=== PATIENT | male | born 1980 | race Caucasian/White ===

== ENCOUNTER → 2016-07-24 | Outpatient (CLI) | payer OTHER ==
[~2016-07-24] MED LIST: APIX1TAB3 PO; FAMO20TA9 PO; FEXO1TAB49 PO; FLUO10CA48 PO; IBUP-1450 PO; ONDA4TAB10 SL; PROM25TA9 PO
--- NOTE | 2016-07-26 07:50 | PAP/PSG TECHNICIAN REPORT ---
[facility] Slip Filler Polysomnogram Report Study name: None Report date: 07/25/2016 Study date: 07/24/2016 Referring Physician: DR. VAZQUEZ Name: CLARE PEACE Interpreting Physician: Cornell Vu M.D. Date of : 1980 Slip Filler: Moni Nogueira, PSGT. Sex: Male Age: 35 StudyType: PSG Weight: 120 lbs Height: 35 years, Height 5' 2" Neck Circum: BMI: 21.95 Medications: Josee,Fluoxetine, and IBP. Patient History 35 yr. old male in room 5, here for a split night study with ETCO2. pt. 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 Parameters Monitored NPSG: E1-M2, E2-M1, Fp1-M2, Fp2-M1, F3-M2, F4-M2, F4-M1, C3-M2, C4-M2, C4-M1, O1-M2, O2-M2, O2-M1, T3-M2, T4-M1, P3-M2, P4-M1, CHIN1, CHIN2, HR, EKG, Legs, PFLOW, SNOR, FLOW, CFLOW, Tidal Volume, THOR, ABDO, SpO2, PLTH, CPRESS, ETCO2 Wave, ETCO2, pH Sleep Architecture Sleep Stages Time at Lights Off 8:37:48 PM STAGES Time (min.) TST (%) Time at Lights On 5:30:18 AM Wake 164.5 -- Total Recording Time (TRT) 534.00 min. N1 18.5 5 Total Sleep Period (TSP) 479.5 min. N2 267.5 73 Total Sleep Time (TST) 368.0min. N3 0.0 0 Awake Time 166.0 min. REM 82.0 22 Wake after Sleep Onset 111.5 min. Sleep Efficiency (SE) 69 % Sleep Onset Latency (CHAYO) 53.0 min. Number of Stage 1 Shifts None Awakenings 10 Stage Changes 39 Number of REM periods 1 REM 82.0 22 REM Latency 303.0 min. NREM 286.0 78 Body Position Analysis Supine Right Left Side Prone Vertical Total Sleep Time (min.) 203.0 0.0 274.5 274.50 0.0 0.2 Total Sleep Time (%) 25% 0% 75% 75 0% N/A% Total Sleep Time REM (min.) 0.0 0.0 82.0 None 0.0 0.0 Total Sleep Time NREM (min.) 93.5 0.0 192.5 None 0.0 0.0 Intermittent Wake (min.) 109.5 0.0 54.9 None 0.0 0.2 Total Sleep Period (%) 34% None None None None None Arousals Myoclonus (PLM) * Events Count Index Events Count Index Spontaneous 38 6 Events Awake (PLMW) 6 2.2 Respiratory 0 0.0 Events Asleep w/ Arousal (PLMA) 0 0.0 PLM 0 0 Events Asleep w/o Arousal (PLMS) 49 8.0 Snoring 1 0 Total Asleep 49 8.0 Total 39 6 Total 55 6 Respiratory Analysis * CA OA MA CH H RERA Total Count 0 0 0 0 5 5 5 Index 0.0 0.0 0.0 0 0.8 1 1.6 Mean Duration 0.0 0.0 0.0 0.00 19.0 20.0 19.5 Longest Duration 0.0 0.0 0.0 0.00 0.0 23.7 35.0 Respiratory Event Summary Total Supine ~Supine Right Left Prone REM NREM Apneas Count 0 0 0 N/A 0 N/A 0 0 Index 0.0 0 0 N/A 0.0 N/A 0 0 Hypopneas (4% Desat) Count 5 0 5 N/A 5 N/A 2 3 Index 0.8 0.0 1 N/A 1.1 N/A 1.5 0.6 Apneas & All Hypopneas Count 5 0 5 N/A 5 N/A 2 3 Index 0.8 0 1 N/A 1 N/A 1.5 0.6 Respiratory Events (Family Lawyer+All Hyp+RERA) Count 5 0 10 N/A 10 N/A 2 3 Index 1.6 0 2 N/A 2.2 N/A 3.7 1.0 Respiratory Related Arousal Count 0 0 0 N/A 0 N/A 0 0 Index 0.0 0 0 N/A 0 N/A 0 0 Snoring Analysis Supine Right Left Prone REM NREM Total Snore duration 2.2 min Snores count 19 N/A 22 N/A 5 36 41 Snore mean duration 3.2 Sec Snores index 12 N/A 5 N/A 3.7 7.6 6.7 TST with snoring (%) 0.6% SpO2 Analysis Total REM NREM Awake <50% 0.0 min. 0.0 min. 0.0 min. 0.0 min. 51 - 60% 0.0 min. 0.0 min. 0.0 min. 0.0 min. 61 - 70% 0.0 min. 0.0 min. 0.0 min. 0.0 min. 71 - 80% 0.0 min. 0.0 min. 0.0 min. 0.0 min. 81 - 90% 438.6 min. 67.2 min. 259.3 min. 112.2 min. 91 - 100% 85.7 min. 14.8 min. 25.6 min. 45.2 min. Average 89 90 89 90 Minimum SpO2 75 86 84 75 Desaturation Event Index 1.8 5.9 1.7 0.0 # Desat. Events below 89% 13 6 7 N/A Time(%) with Saturation below 89% 33.2 2.1 21.1 10.1 Time(min.) with Saturation below 89% 174.3 11.0 110.6 52.7 Heart Rate Analysis End Tidal CO2 Analysis Min (bpm) Max (bpm) Average (bpm) TSP (mins) % of TSP Awake 59 127 80 Above 55 mmHg 292.2 79.4 NREM 39 100 71 50-55 mmHg 13.7 3.7 REM 55 94 70 45-50 mmHg 8.9 2.4 Overall 39 100 71 40-45 mmHg 15.5 4.2 35-40 mmHg 22.1 6.0 30-35 mmHg 11.4 3.1 Average ETCO2 0.1 Supplemental O2 Values Minimum O2 level: None Value Start Time End Time Slip Filler Comments PSG Study slept in the left, and supine positions. Cardiac arrhythmia displayed see print outs. No PLM's noted. No bruxism noted. Snoring was noted and scored as a 1on a scale of 1 through 5. (0=no snoring, 5=snoring loud enough to be heard through a closed door or down the [address]) Mr. Peace awoke to use the restroom one time during the night. Mr. Peace stated, I did sleep as well as I do when I am in my own bed, I sleep longer at home. The final report will be interpreted and signed by a sleep physician. The completed physician report will then be placed in the patient medical record. Mr. Peace did not qualify for a split night study; however, he did display high ETCO2 pressures, and low oxygen saturations throughout the night. He was adamant that he wasn't going to wear a mask if needed when I was explaining the process of a split night study. Therapy (cm H2O) 0 TIB (min.) 532.5 TST (min.) 368.0 Sleep Onset (min.) 53.0 REM Onset From Sleep (min.) 303.0 Sleep Efficiency % 69 Wakefulness (%) 31 Wakefulness (min.) 166.0 NREM 1 (%) 5 NREM 1 (min.) 18.5 NREM 2 (%) 73 NREM 2 (min.) 267.5 NREM 3 (%) 0 NREM 3 (min.) 0.0 REM (%) 22 REM (min.) 82.0 # Arousals 39 Arousal Index 6 # Snore 41 Snore Index 6.7 AHI 0.8 AHI Supine 0 AHI Non-Supine 1 NREM AHI 0.6 REM AHI 1.5 RDI 1.6 # Obstructive Apnea 0 # Central Apnea 0 # Mixed Apnea 0 # Hypopneas 5 RERAs 5 Total Respiratory Events 10 Time Below SpO2 89% (min.) 121.6 Mean NREM SpO2 (%) 89 Mean REM SpO2 (%) 90 Mean Sleep SpO2 (%) 89 Min NREM SpO2 (%) 84 Min REM SpO2 (%) 86 Position Supine (min.) 203.0 Position Non-supine (min.) 274.5 LM Index Sleep 8.0 LM Index NREM 5.2 LM Index REM 17.6 Mean Heart Rate (bpm) 71 Min Heart Rate (bpm) 39
--- NOTE | 2016-07-28 02:05 | POLYSOMNOGRAPH REPORT ---
CLINICAL DATA: A 35-year-old male with a BMI of 22 with myotonic dystrophy type 1, referred by Dr. Ervin for evaluation of possible respiratory insufficiency and nocturnal hypoxemia. SLEEP ARCHITECTURE: Total sleep period was 479.5 minutes. Total sleep time was 368 minutes divided between 286 minutes of non-REM sleep and 82 minutes of REM sleep. Sleep onset latency was delayed at 53 minutes. REM latency was delayed at 303 minutes. Sleep efficiency was reduced at 69%. Wake after sleep onset was elevated at 111.5 minutes. Sleep consisted of stage N1 5%, N2 73%, and REM 22%. AROUSAL DATA: 39 arousals were recorded for an index of 6 per hour. PLM DATA: 49 limb movements during sleep were noted for an index of 8 per hour with arousal index of 0. RESPIRATORY DATA: There was no evidence of sleep apnea noted. The AHI was 0.8. The RDI was 1.6. There were 5 hypopneic episodes, the mean duration of which was 19 seconds. There were 5 RERAs. The longest RERA was 23.7 seconds. OXIMETRY DATA: Nocturnal hypoxemia was seen. Oxygen sayra was 84% during non-REM sleep. Mean saturation was 89%. Time with O2 saturation below 89% was 147.3 minutes. HEART RATE DATA: Heart rates ranged from 39-100 beats per minute. Occasional short episodes of what appeared to be atrial flutter were seen. END-TIDAL CO2 ANALYSIS: End-tidal CO2 was above 55 mmHg for 79.4% of the study. The patient slept in the left and supine positions. No bruxism was noted. Snoring was mild, rated 1 on a scale of 1 through 5. The patient was seen to have intermittent mild nocturnal hypoxemia and significantly elevated end-tidal CO2 consistent with hypoventilation related to myotonic dystrophy. He also had several short runs of what appeared to be atrial flutter. When the explosive ordnance technician explained the possibility of using BiPAP and a mask, the patient was adamant that he was not going to wear the mask and would not try it. Therefore, a standard sleep study was performed. IMPRESSION: 1. No evidence of sleep apnea/hypopnea. 2. Mild nocturnal hypoxemia with evidence of elevated end-tidal CO2 throughout most of the study consistent with hypoventilation. 3. Short bursts of probable atrial flutter. RECOMMENDATIONS: The patient will return to see his neurologist for reevaluation. If the patient will reconsider BiPAP for hypoventilation at night, a repeat full-night study with BiPAP could be considered. Clinical correlation is needed. MTDD
== END | disposition home or self-care (01) ==
LOC: C.NEUR 20:00
PROVIDERS: ATTEND Psychiatry & Neurology Neurology
DX: G71.11 Myotonic muscular dystrophy (principal); G47.19 Other hypersomnia; R06.89 Other abnormalities of breathing

== ENCOUNTER → 2016-12-08 | Day surgery (SDC) | payer OTHER ==
[~2016-12-08] VITALS: Ht 167.6 cm; Wt 59.0 kg
[~2016-12-08] MED LIST changes: +LIDOCAINE HCL 2% 2 ML VIAL (20MG/ML) ONE; -PROM25TA9 PO; +PROPOFOL IV EMULSION 10 MG/ML 20 ML VIAL IV ONE
[2016-12-08 07:15] VITALS: BP 100/76; PULSE 74; TEMP 36.8; O2SAT 98; Ht 167.6 cm; Wt 59.0 kg
[2016-12-08 07:49] VITALS: BP 100/76; PULSE 72; O2SAT 98
[2016-12-08 07:50] VITALS: BP 90/62; PULSE 72; O2SAT 98
[2016-12-08 07:52] VITALS: PULSE 72; O2SAT 98
[2016-12-08 07:55] VITALS: BP 95/60; PULSE 65; O2SAT 98
--- NOTE | 2016-12-08 08:02 | History & Physical Bridge Note ---
H&P Re-Evaluation Bridge Note: I have examined the patient, reviewed the History & Physical and in the interval since the performance of the History & Physical I have noted the following changes of clinical significance: No changes noted
--- NOTE | 2016-12-08 08:09 | [facility] Post Operative Brief Note ---
Immediate Operative Summary Operative Date December 08, 2016. Pre-Operative Diagnosis atrial flutter controlled rate Post-Operative Diagnosis paroxysmal atrial flutter successful cardioverted Procedure(s) Performed DC cardioversion Surgeon Cirilo Head Strength And Conditioning Coach Surgeon(s) Meka RN's Estimated Blood Loss none Findings successful cardioversion to sinus rhythm Specimens none Anesthesia as per anesthesia Complication(s) Pt with brief (approx 20 sec) episode of pulseless electrical activity. Respiratory support provided immediately with ambu bag by anesthesia. Chest compressions started, only 2 delivered. Pt then aroused. Pulse returned. Patient spontaneously breathing. Arousable and responding appropriately. No further arrhythmias. Recovered in laborer carpentry dock per protocol.
--- NOTE | 2016-12-08 08:13 | Procedure Note ---
Procedure Note Date of Service December 08, 2016. Procedure Note Informed consent obtained. Pt prepped. Sedation provided per anesthesia. Once adequately sedated, 200J of DC energy delivered with successful conversion to sinus on monitor However, no pulse present Pt ventilated by anesthesia Chest compressions started, only 2 delivered pt became responsive pulse returned recovered in bundle tier and labeler without further incident Plan: DC to home cont Álvaro my office will call to arrange follow up with Timur Curtis PA-C in 4 weeks
--- NOTE | 2016-12-08 08:20 | Discharge Instructions ---
Discharge Instructions Date of Service December 08, 2016. Admission Reason for Admission: A-Flutter, W/Anesthesia * Discharge Discharge Diagnosis / Problem: atrial flutter, successfully cardioverted to sinus rhythm Discharge Goals Goal(s): Improve function Activity Recommendations Activity Limitations: as noted below Lifting Limitations: none Exercise/Sports Limitations: none May Resume Sexual Activity: when tolerated Shower/Bathe: no limitations Driving or Machine Use: resume 1 day after discharge . Instructions / Follow-Up Instructions / Follow-Up Cardiology office to call and arrange follow up appointment in 4 weeks. Current Hospital Diet Patient's current hospital diet: Discharge Diet Recommended Diet: Regular Diet Procedures Procedures Performed: DC cardioversion Pending Studies Studies pending at discharge: no Medical Emergencies . Who to Call and When: Medical Emergencies: If at any time you feel your situation is an emergency, please call 911 immediately. . Non-Emergent Contact Non-Emergency issues call your: Primary Care Provider, Bit Tapper . . "Provider Documentation" section prepared by Hung Kerr. . VTE Core Measure Inpt VTE Proph given/why not?: Other Anticoagulation
--- NOTE | 2016-12-08 08:47 | Anesthesiology Progress Note ---
Anesthesia Post Op Note Date & Time December 08, 2016 at 08:47 Vital Signs Pain Intensity: 0 Vital Signs Past 12 Hours Date Time Temp Pulse Resp B/P Pulse Ox O2 Delivery O2 Flow Rate FiO2 12/08/16 08:10 53 16 93/60 96 Room Air 12/08/16 08:00 65 16 91/61 96 Room Air 12/08/16 07:55 65 16 95/60 98 Nasal Cannula 4 12/08/16 07:52 72 16 98 Nasal Cannula 4 12/08/16 07:50 72 16 90/62 98 Nasal Cannula 4 12/08/16 07:49 72 16 100/76 98 Nasal Cannula 4 12/08/16 07:15 36.8 74 16 100/76 98 Room Air Notes Mental Status: alert / awake / arousable, participated in evaluation Pt Amnestic to Procedure: Yes Nausea / Vomiting: adequately controlled Pain: adequately controlled Airway Patency, RR, SpO2: stable & adequate BP & HR: stable & adequate Hydration State: stable & adequate Anesthetic Complications: no major complications apparent
[2016-12-08 09:00] VITALS: BP 101/57; PULSE 57; O2SAT 96
== END | disposition home or self-care (01) ==
LOC: C.CATH 06:47
PROVIDERS: ATTEND Internal Medicine Cardiovascular Disease
DX: I48.3 Typical atrial flutter (principal); F41.1 Generalized anxiety disorder; G71.11 Myotonic muscular dystrophy; E78.5 Hyperlipidemia, unspecified; R00.1 Bradycardia, unspecified; I51.9 Heart disease, unspecified; D68.51 Activated protein C resistance

== ENCOUNTER 2017-04-13 14:21 | Emergency (ER) | payer OTHER ==
[~2017-04-13] VITALS: Ht 167.6 cm; Wt 60.5 kg
[~2017-04-13 14:21] MED LIST changes: -FAMO20TA9 PO; -FEXO1TAB49 PO; -IBUP-1450 PO; -LIDOCAINE HCL 2% 2 ML VIAL (20MG/ML) ONE; -ONDA4TAB10 SL; -PROPOFOL IV EMULSION 10 MG/ML 20 ML VIAL IV ONE
[2017-04-13 14:24] VITALS: TEMP 36.5; Ht 167.6 cm; Wt 60.5 kg
[2017-04-13] MEDS ORDERED: FEXO1TAB49 PO (14:50)
[2017-04-13] MEDS ORDERED: ONDANSETRON INJ 2 MG/ML 2 ML VIAL IV STA (15:27)
[2017-04-13] MEDS ORDERED: SODIUM CHLORIDE 0.9% 1000ML 1,000 ML IV STA (15:27)
--- NOTE | 2017-04-13 15:32 | EMERGENCY ROOM VISIT NOTE ---
History First contact with patient: 15:12 Chief Complaint: IRREGULAR HEARTBEAT Stated Complaint: VOMITING, HEART IRREGULATIONS, NAUSEA, CONGESTION Nursing Triage Summary: Pt sent by Dr. Engel for eval of cough, fever, congestion, n/v. Hx of a. fib. Denies feeling heart racing or chest pain. Pt scheduled to have an ablation on 04/27/17. Hx of cardioversion. Denies SOB, dizziness, lightheadedness. History of Present Illness The patient is a 36 year old male who presents to the Emergency Room via private vehicle accompanied by mother with complaints of "vomiting, heart regulation's, nausea, congestion". The patient states that for the past 1.5 weeks he has been experiencing sinus congestion, nausea, vomiting. The patient states that he was recently in [place], and had abdominal pain and had CT scans , blood work and was sent home. He states that he has a history of A. fib/A flutter, and has an ablation scheduled for April 27 and appt for this on Tuesday. This will be performed here by a [facility] physician. He notes that he currently takes Ahlquist for this. He states that unfortunately for the past 1.5 weeks he's been unable to tolerate by mouth fluids, or food. He notes the vomiting has been ongoing. He went to see his family doctor, Dr. Engel this morning, and vomited the office, and was sent here for the persistent illness, cough, fever, congestion and low blood pressure. Review of Systems A complete 10-point Review of Systems was discussed with the patient, with pertinent positives and negatives listed in the History of Present Illness. All remaining Review of Systems questions can be considered negative unless otherwise specified. Past Medical/Surgical History Medical Problems: (1) Factor V Leiden (2) Myotonic muscular dystrophy Family History FH: cancer Social History Smoking Status: Never Smoker Alcohol Use: occasionally Housing Status: lives with family Current/Historical Medications Scheduled Apixaban (Eliquis), 5 MG PO BID Famotidine (Pepcid), 1 TAB PO BID Fexofenadine Hcl (Josee Allergy), 1 TAB PO DAILY Fluoxetine (Prozac), 10 MG PO QAM Ondasetron Odt (Zofran Odt), 4 MG SL Q6H Physical Exam Vital Signs Date Time Temp Pulse Resp B/P (MAP) Pulse Ox O2 Delivery O2 Flow Rate FiO2 04/13/17 20:32 87 20 119/82 96 04/13/17 18:31 77 04/13/17 18:30 73 18 114/78 93 Room Air 04/13/17 16:33 86 18 122/84 97 Room Air 04/13/17 15:47 95 Room Air 04/13/17 14:36 118 04/13/17 14:24 36.5 131 18 100/75 98 Room Air Physical Exam VITAL SIGNS - Vital signs and nursing notes were reviewed. Stable. Tachycardic. GENERAL - 36-year-old male appearing his stated age who is in no acute distress. Communicates well with provider and answers questions appropriately. SKIN - Without rashes. HEAD - NC/AT. EYES - PERRL with EOMI bilaterally. Sclera anicteric. EARS - No deformities of external structures noted on gross examination bilaterally. No pain elicited with palpation of the tragus bilaterally. External auditory canals without discharge or otorrhea. Tympanic membranes pearly abdi without retraction or bulging. No fluid or purulent material visualized behind the TM. Handle of malleus, umbo, cone of light, pars tensa/ flaccid all easily visualized. NOSE - Midline and without cyanosis. No epistaxis or purulent drainage noted. Septum midline without deviation or septal hematoma noted. MOUTH/OROPHARYNX - Without perioral cyanosis. Buccal mucosa pink and moist and without leukoplakia. Tongue midline with equal elevation of palate bilaterally. No tonsillar hypertrophy, erythema, or exudates noted. Fair dentition noted. NECK - Neck with FROM. Supple to palpation. No lymphadenopathy noted. No nuchal rigidity. LUNGS - Chest wall symmetric without accessory muscle use, intercostals retractions, or central cyanosis. Normal vesicular breath sounds CTA B/L. No wheezes, rales, or rhonchi appreciated. CARDIAC - RRR with S1/S2. No murmur, rubs, or gallops appreciated. ABDOMEN - Abdominal contour normal without pulsations or visible masses. BS normoactive all four quadrants. No tenderness, palpable masses, hepatosplenomegaly, or ascites noted. EXTREMITIES - No clubbing or peripheral cyanosis. No pretibial edema present. + 5/5 strength noted in UE/LE bilaterally. NEUROLOGIC - Cranial nerves II through XII grossly intact. Sensory intact to light touch throughout. PSYCH - A&Ox3 and cooperates fully with examiner. Pt is very pleasant and interacts well with examiner. Medical Decision & Procedures ER Provider Diagnostic Interpretation: CHEST ONE VIEW PORTABLE CLINICAL HISTORY: 36 years-old Male presenting with Congestion, A fib.. TECHNIQUE: Portable upright AP view of the chest was obtained. COMPARISON: None. FINDINGS: Mildly enlarged cardiac silhouette. The main pulmonary artery may also be enlarged. Mild prominence of ulnar vasculature. Lungs and pleural spaces clear. Osseous structures normal. Upper abdomen normal. IMPRESSION: 1. Suggestion of mild cardiomegaly and mild pulmonary vasculature prominence. This could suggest volume overload. No luca pulmonary edema. 2. Suggestion of enlargement of the main pulmonary artery. Electronically signed by: Esau Pedro M.D. 04/13/2017 4:20 PM Dictated Date/Time: 04/13/2017 4:19 PM Laboratory Results 04/13/17 14:45 Red Blood Count 4.46, Mean Corpuscular Volume 94.2, Mean Corpuscular Hemoglobin 31.8, Mean Corpuscular Hemoglobin Concent 33.8, Mean Platelet Volume 10.8, Neutrophils (%) (Auto) 72.9, Lymphocytes (%) (Auto) 14.9, Monocytes (%) (Auto) 9.3, Eosinophils (%) (Auto) 2.5, Basophils (%) (Auto) 0.1, Neutrophils # (Auto) 5.27, Lymphocytes # (Auto) 1.08, Monocytes # (Auto) 0.67, Eosinophils # (Auto) 0.18, Basophils # (Auto) 0.01 04/13/17 14:45 Test 04/13/17 14:45 White Blood Count 7.23 K/uL (4.8-10.8) Red Blood Count 4.46 M/uL (4.7-6.1) Hemoglobin 14.2 g/dL (14.0-18.0) Hematocrit 42.0 % (42-52) Mean Corpuscular Volume 94.2 fL (80-100) Mean Corpuscular Hemoglobin 31.8 pg (25-34) Mean Corpuscular Hemoglobin Concent 33.8 g/dl (32-36) Platelet Count 176 K/uL (130-400) Mean Platelet Volume 10.8 fL (7.4-10.4) Neutrophils (%) (Auto) 72.9 % Lymphocytes (%) (Auto) 14.9 % Monocytes (%) (Auto) 9.3 % Eosinophils (%) (Auto) 2.5 % Basophils (%) (Auto) 0.1 % Neutrophils # (Auto) 5.27 K/uL (1.4-6.5) Lymphocytes # (Auto) 1.08 K/uL (1.2-3.4) Monocytes # (Auto) 0.67 K/uL (0.11-0.59) Eosinophils # (Auto) 0.18 K/uL (0-0.5) Basophils # (Auto) 0.01 K/uL (0-0.2) RDW Standard Deviation 49.2 fL (36.4-46.3) RDW Coefficient of Variation 14.4 % (11.5-14.5) Immature Granulocyte % (Auto) 0.3 % Immature Granulocyte # (Auto) 0.02 K/uL (0.00-0.02) Prothrombin Time 12.1 SECONDS (9.0-12.0) Prothromb Time International Ratio 1.1 (0.9-1.1) Activated Partial Thromboplast Time 29.9 SECONDS (21.0-31.0) Partial Thromboplastin Ratio 1.2 Anion Gap 8.0 mmol/L (3-11) Est Creatinine Clear Calc Drug Dose 94.8 ml/min Estimated GFR () 122.1 Estimated GFR (Non- 105.4 BUN/Creatinine Ratio 13.2 (10-20) Calcium Level 9.3 mg/dl (8.5-10.1) Magnesium Level 2.6 mg/dl (1.8-2.4) Total Bilirubin 0.4 mg/dl (0.2-1) Aspartate Amino Transf (AST/SGOT) 30 U/L (15-37) Alanine Aminotransferase (ALT/SGPT) 67 U/L (12-78) Alkaline Phosphatase 127 U/L (45-117) Total Creatine Kinase 93 U/L (39-308) Creatine Kinase MB 1.2 ng/ml (0.5-3.6) Creatine Kinase MB Ratio 1.3 (0-3.0) Troponin I < 0.015 ng/ml (0-0.045) Total Protein 7.2 gm/dl (6.4-8.2) Albumin 3.3 gm/dl (3.4-5.0) Globulin 3.9 gm/dl (2.5-4.0) Albumin/Globulin Ratio 0.8 (0.9-2) Thyroid Stimulating Hormone (TSH) 0.204 uIu/ml (0.300-4.500) Free Thyroxine 1.40 ng/dl (0.80-1.60) Medications Administered Medications (Trade) Dose Ordered Sig/Miguel Route Start Time Stop Time Status Last Admin Dose Admin Sodium Chloride 1,000 ml @ 999 mls/hr Q1H1M STAT IV 04/13/17 15:27 04/13/17 16:27 DC 04/13/17 15:46 999 MLS/HR Ondansetron HCl (Zofran Inj) 4 mg NOW STAT IV 04/13/17 15:27 04/13/17 15:30 DC 04/13/17 15:46 4 MG Famotidine (Pepcid 20mg/100 ml) 20 mg ONE STAT IV 04/13/17 17:34 04/13/17 17:35 DC 04/13/17 17:43 20 MG Medical Decision Referred by the family doctor over concern for his illness 10 days, as well as vomiting, irregular heartbeat, nausea and congestion. The patient was seen in [place], notes he had numerous CAT scans performed for his abdominal pain and was sent home. He has a known diagnosis of atrial fib/A flutter. This is verified by bedside EKG which reveals atrial flutter with variable AV block. RSR prime. There is slight elevation of the ST segment in the inferior leads, over troponin was negative. I believe this may be rate related. He offers no complaints of chest pain or shortness of breath at this time. Laboratory studies revealed no leukocytosis. Red blood cell count so low at 4.46. Hemoglobin okay. Coag studies are within normal limits with slight elevation of the PT. Metabolic workup reveals no evidence of kidney or liver failure. Magnesium is slowly high at 2.6. Alkaline phosphatase is slightly high at 127. The patient has been vomiting. TSH is low at 0.2. Free T4 is okay at 1.4. Chest x-ray does reveal mild cardiomegaly/vascular prominence without evidence of acute process. I suspect the patient is likely experiencing sequela of acute gastroenteritis that he may have had a few days ago. The congestion and had I believe is likely viral related. I did give him Pepcid here as well as Zofran. He tolerated this well. He was hydrated with fluids. By mouth fluid trial was initiated in the past without difficulty. He was offered food and declined. He was offered admission and noted that he would like to go home. I do believe he is stable for outpatient management, and is to keep the cardiology appointment to do with the atrial fibrillation/flutter, to continue his request as well as to have a bland diet and use by mouth Zofran and Pepcid. He is to return if worsening. Case was discussed with the attending physician , who also personally evaluated the patient. They were educated upon worrisome symptoms in which to return, had questions answered prior to discharge, and was discharged home in good condition. The patient's rate which was found to be tachycardic upon arrival responded well to fluids. In the evaluation treatment this patient the following differential diagnoses were entertained: ME, PE, A. fib, viral URI, gastritis, along. Medication Reconcilliation Current Medication List: was personally reviewed by me Blood Pressure Screening Patient's blood pressure: Normal blood pressure Impression Primary Impression: Gastritis Additional Impression: Nausea and vomiting Departure Information Dispostion Home / Self-Care Condition GOOD Prescriptions Famotidine (PEPCID) 20 Mg Tab 1 TAB PO BID for 30 Days, #60 TAB 5 Refills Prov: Tyrone Biswas PA-C 04/13/17 Ondasetron Odt (ZOFRAN ODT) 4 Mg Tab 4 MG SL Q6H for Nausea, #15 TAB Prov: Tyrone Biswas PA-C 04/13/17 Referrals Jose Engel M.D. (PCP) Patient Instructions My [facility] Additional Instructions You have been treated in the Emergency Department your nausea vomiting and atrial flutter. Laboratory results and imaging studies have ruled out any emergent causes for your symptoms which would warrant admission or surgery. You have been prescribed Pepcid. This is 20 mg every 12 hours for the stomach upset. I first said that this would be [id number], but believe that providing a prescription would be easier. You have been prescribed Zofran to be used for any nausea or vomiting. Take as prescribed. Please continue the regular medications. Drink plenty of water and stay well hydrated. As with any trip to the Emergency Department, you should follow-up with your Primary Care Provider from today's visit. Please keep your outreach and education social worker follow-up. Return to the emergency department if your symptoms persist despite treatment plan outlined above or if the following symptoms occur: increased fevers, chills , worsening nausea/vomiting, blood in your stool or urine. Problem Qualifiers
[2017-04-13 15:40] LABS: BASO % 0.1 %; BASO ABS # 0.01 K/uL (0-0.2); COMPLETE YES; EOS % 2.5 %; IG% 0.3 %; LYMPH % 14.9 %; LYMPH ABS # 1.08 K/uL (1.2-3.4); MEAN CELL VOLUME 94.2 fL (80-100); MEAN CORPUSCULAR HEMOGLOBIN 31.8 pg (25-34); MEAN CORPUSCULAR HGB CONC 33.8 g/dl (32-36); MEAN PLATELET VOLUME 10.8 fL (7.4-10.4); MONO % 9.3 %; NEUT % 72.9 %; PLATELET COUNT 176 K/uL (130-400); RED BLOOD COUNT 4.46 M/uL (4.7-6.1); WHITE BLOOD COUNT 7.23 K/uL (4.8-10.8)
[2017-04-13 15:47] VITALS: O2SAT 95
[2017-04-13 15:49] LABS: BUN/CREATININE RATIO 13.2 (10-20); CALCIUM 9.3 mg/dl (8.5-10.1); CREATININE 0.94 mg/dl (0.60-1.40); MAGNESIUM 2.6 mg/dl (1.8-2.4); POTASSIUM 4.1 mmol/L (3.5-5.1)
[2017-04-13 15:58] LABS: INR 1.1 (0.9-1.1); PARTIAL THROMBOPLASTIN RATIO 1.2; PROTHROMBIN TIME (PATIENT) 12.1 SECONDS (9.0-12.0)
[2017-04-13 16:00] LABS: ALB/GLOB RATIO 0.8 (0.9-2); CKMB/CK RATIO 1.3 (0-3.0); THYROID STIMULATING HORMONE 0.204 uIu/ml (0.300-4.500)
--- NOTE | 2017-04-13 16:16 | EMERGENCY ROOM VISIT NOTE ---
ED Visit Note First contact with patient: 15:12 HPI: h/o kylie ROMERO on eloquis here with n/v. PE: AFVSS, NAD NC/AT IRIR, no murmurs CTAB Abd soft NT/ND Ext: no edema, erythema Neuro: grossly intact Plan: Labs unremarkable. Improved with tx. Plan for pcp f/u. I reviewed the patient's past medical history, medications, and visit nursing notes. I discussed the case with the physician assistant refinery operator, examined the patient, and agree with the findings and plan as documented in the physician assistants note.
--- NOTE | 2017-04-13 16:22 | DIAGNOSTIC IMAGING REPORT ---
CHEST ONE VIEW PORTABLE CLINICAL HISTORY: 36 years-old Male presenting with Congestion, A fib.. TECHNIQUE: Portable upright AP view of the chest was obtained. COMPARISON: None. FINDINGS: Mildly enlarged cardiac silhouette. The main pulmonary artery may also be enlarged. Mild prominence of ulnar vasculature. Lungs and pleural spaces clear. Osseous structures normal. Upper abdomen normal. IMPRESSION: 1. Suggestion of mild cardiomegaly and mild pulmonary vasculature prominence. This could suggest volume overload. No luca pulmonary edema. 2. Suggestion of enlargement of the main pulmonary artery. Electronically signed by: Esau Pedro M.D. 04/13/2017 4:20 PM Dictated Date/Time: 04/13/2017 4:19 PM
[2017-04-13] MEDS ORDERED: FAMOTIDINE 20MG/102 ML D5W IV STA (17:34)
[2017-04-13] MEDS ORDERED: ONDA4TAB10 SL (20:21)
[2017-04-13] MEDS ORDERED: FAMO20TA9 PO (20:21)
[2017-04-13 20:32] VITALS: BP 119/82; PULSE 87; O2SAT 96
== END 2017-04-13 20:34 | disposition home or self-care (01) ==
LOC: C.EDB 14:23
DX: K29.70 Gastritis, unspecified, without bleeding (principal); R11.2 Nausea with vomiting, unspecified; I48.91 Unspecified atrial fibrillation; I48.92 Unspecified atrial flutter; G71.11 Myotonic muscular dystrophy; D68.2 Hereditary deficiency of other clotting factors; Z80.9 Family history of malignant neoplasm, unspecified; Z79.899 Other long term (current) drug therapy

== ENCOUNTER 2017-04-27 06:36 | Observation (INO) | payer OTHER ==
[2017-04-19 10:03] VITALS: BMI 21.0
[~2017-04-27] VITALS: Ht 167.6 cm; Wt 63.3 kg
[2017-04-27] VITALS (14 sets, daily range): BP systolic 96–116; BP diastolic 68–77; PULSE 67–99; TEMP 36.4–37.5; O2SAT 91–99; Ht 167.6 cm; Wt 63.3 kg
[~2017-04-27 06:36] MED LIST changes: +FEXO1TAB49 PO; +LACTATED RINGER'S 1000ML 1,000 ML IV SCH; +PROPOFOL IV EMULSION 10 MG/ML 100 ML VIAL IV ONE
[2017-04-27] MEDS ORDERED: MIDAZOLAM HCL 1 MG/ML 2ML VIAL ONE (07:45)
[2017-04-27] MEDS ORDERED: FENTANYL CITRATE INJ 50 MCG/1 ML 2 ML VIAL ONE (07:45)
[2017-04-27] MEDS ORDERED: PROPOFOL IV EMULSION 10 MG/ML 20 ML VIAL IV ONE (07:46)
[2017-04-27] MEDS ORDERED: LIDOCAINE HCL 2% 2 ML VIAL (20MG/ML) ONE (07:46)
[2017-04-27] MEDS ORDERED: ONDANSETRON INJ 2 MG/ML 2 ML VIAL IV PRN (08:00)
[2017-04-27] MEDS ORDERED: PROMETHAZINE HCL INJ 6.25 MG in SODIUM CHLORIDE 0.9% 50ML 50 ML IV PRN (08:00)
[2017-04-27] MEDS ORDERED: ATROPINE SULFATE 0.1 MG/ML 5ML SYR IV PRN (08:00)
[2017-04-27] MEDS ORDERED: FENTANYL CITRATE INJ 50 MCG/1 ML 2 ML VIAL IV PRN (08:00)
[2017-04-27] MEDS ORDERED: EpHEDrine SULFATE INJ 50 MG/ML AMP IV PRN (08:00)
[2017-04-27] MEDS ORDERED: HEPARIN SOD (PORCINE) 1000 UNIT/ML 10 ML VIAL ONE (08:31)
[2017-04-27] MEDS ORDERED: PHENYLEPHRINE 100MCG/ML 5ML SYR ONE ×2 (08:33→09:39)
[2017-04-27] MEDS ORDERED: GLYCOPYRROLATE INJ 0.2 MG/ML VIAL ONE (11:17)
[2017-04-27] MEDS ORDERED: ACETAMINOPHEN 325 MG TAB PO PRN (11:45)
--- NOTE | 2017-04-27 11:46 | [facility] Post Operative Brief Note ---
Immediate Operative Summary Operative Date Apr 27, 2017. Pre-Operative Diagnosis persistent typical atrial flutter Post-Operative Diagnosis same, sinus bradycardia and bidirectional block across the CTI Procedure(s) Performed eps, 3d mapping of atrial flutter RA, radiofrequency ablation of cavotricuspid isthmus for atrial flutter Surgeon ambar montano Lost Charge Card Clerk Surgeon(s) none Estimated Blood Loss <5cc Findings see official report Fluids (cc crystalloids) 1200cc Specimens none Drains none Anesthesia 4mg versed, 100mcg fentanyl, 800mg propofol Complication(s) None Disposition director of cath lab holding
--- NOTE | 2017-04-27 12:08 | DIAGNOSTIC IMAGING REPORT ---
SINGLE VIEW CHEST CLINICAL HISTORY: Aspiration. FINDINGS: An AP, portable, upright chest radiograph is compared to study dated 04/13/2017. The examination is degraded by portable technique and patient rotation. The cardiomediastinal silhouette is unremarkable. The lungs and pleural spaces are clear. No pneumothorax is seen. The bony thorax is grossly intact. IMPRESSION: No acute cardiopulmonary abnormality. Electronically signed by: Ashish Aparicio M.D. 04/27/2017 12:07 PM Dictated Date/Time: 04/27/2017 12:07 PM
[2017-04-27] MEDS ORDERED: APIXABAN 2.5 MG TAB PO ONE (12:30)
--- NOTE | 2017-04-27 12:49 | Discharge Instructions ---
Discharge Instructions Date of Service Apr 27, 2017. Admission Reason for Admission: A-Flutter Discharge Discharge Diagnosis / Problem: persistent typical atrial flutter s/p ablation Discharge Goals Goal(s): Improve function Activity Recommendations Activity Limitations: as noted below Lifting Limitations: no more than 10 pounds (no heavy lifting or squatting for 1 week) Shower/Bathe: tomorrow Driving or Machine Use: resume 1 day after discharge . Instructions / Follow-Up Instructions / Follow-Up ACTIVITY RECOMMENDATIONS: It is common to feel weak and fatigue for a few days. * Do not drive or operate any motorized equipment for the next 1 day. * Limit stair usage (2 or 3 trips a day only) for the next three days. * Do not lift anything heavier than 10 pounds for the next 7 days. * Do not engage in vigorous exercise or any sports for the next 7 days. * You may shower the day after your procedure, but do not immerse the area for three days. Cleanse the site gently with soap and water. SPECIAL CARE INSTRUCTIONS: * You may replace the pressure dressing or band-aid the morning after the procedure. * After your procedure, it is normal to have a small bruise or small lump at the site. Examine your site daily for any change in the bruise or lump, redness, swelling, drainage or numbness. Notify your doctor if any change. BLEEDING: * If there is a small amount of bleeding at the site, lie down and apply firm pressure with a clean cloth for ten minutes. When the bleeding stops, lie quietly keeping the procedure limb straight for six hours. Notify your doctor as soon as possible. * If the bleeding does not stop after ten minutes or if there is a large amount of bleeding or spurting, call 911 immediately. Continue to lie down and hold firm pressure until help arrives. SKIN IRRITATION: * You may experience some redness and/or swelling in the area where radiation was administered. If any skin irritation occurs, please contact your family physician. FOLLOW UP VISIT: Keep any scheduled doctor appointments. Current Hospital Diet Patient's current hospital diet: Regular Diet Discharge Diet Recommended Diet: Regular Diet Procedures Procedures Performed: eps, 3d mapping of atrial flutter RA, radiofrequency ablation of cavotricuspid isthmus for atrial flutter Pending Studies Studies pending at discharge: no Medical Emergencies . Who to Call and When: Medical Emergencies: If at any time you feel your situation is an emergency, please call 911 immediately. . Non-Emergent Contact Non-Emergency issues call your: Circulation Sales Representative . . "Provider Documentation" section prepared by Sonia Park. . VTE Core Measure Inpt VTE Proph given/why not?: Other Anticoagulation (eliquis)
--- NOTE | 2017-04-27 12:50 | OPERATIVE REPORT ---
DATE OF OPERATION: 04/27/2017 PREOPERATIVE DIAGNOSIS: Persistent atrial flutter. POSTOPERATIVE DIAGNOSIS: Same in addition to sinus bradycardia, bidirectional block across the cavotricuspid isthmus. PROCEDURE: Electrophysiology study, radiofrequency ablation of the cavotricuspid isthmus, 3D activation mapping of the right atrial flutter. SURGEON: Sonia Park D.O. ANESTHESIA: Monitored anesthetic care administered via anesthesiology. Please refer to their notes for details. COMPLICATIONS: None. CONDITION: Stable. URINE OUTPUT: ____ SPECIMENS: None. FINDINGS: See below. DRAINS: None. INDICATIONS: This is a 36-year-old gentleman who has a past medical history for persistent atrial flutter which he was initially diagnosed in October 2016. He underwent direct synchronized cardioversion in November 2016 with a long conversion pause requiring some brief CPR. He had recurrent episode of the persistent atrial flutter in January 2017. He remains on Eliquis, sinus bradycardia, factor V Leiden mutation, nonischemic cardiomyopathy, ejection fraction 40-45%, muscular dystrophy type 1 and hyperlipidemia. Due to the recurrent persistent atrial flutter he was recommended flutter ablation. CONSENT: Consent was obtained prior to the patient going into the electrophysiology lab. The patient was informed of the risks, benefits and alternatives to the procedure. Risks include but not limited to sudden cardiac , cardiac arrhythmias, cerebrovascular accident, myocardial infarction, injury to the blood vessels, chamber of the heart or the clark's point electrical system where he would need a permanent pacemaker, bleeding and infection. The patient understood these risks and agreed to undergo the procedure as planned. His mom signed on his behalf and his mom understood the risks as well. DESCRIPTION OF THE PROCEDURE: The patient was brought into the electrophysiology lab in a fasting state. He was connected to continuous cardiac monitoring. A timeout was performed to ensure patient's identity and procedure correctly. The patient was prepped and draped over the bilateral groins in normal surgical standard fashion. Monitored anesthetic care was given throughout the procedure for patient's comfort level via anesthesiology. [place] precautions were maintained throughout the procedure. 10 mL of 1% lidocaine were given in the bilateral groins for local anesthesia. Under ultrasound guidance the modified Seldinger technique was used to obtain femoral venous access in the following manner with a micropuncture kit. LEFT FEMORAL VEIN A 6-Mosotho sheath followed ultimately by a quadripolar Woo catheter positioned into the right ventricular apex. A 7-Mosotho sheath followed by a Halo 20 pole catheter positioned around the right atrium. A 7-Mosotho sheath followed by a Biosense Decapolar coronary sinus catheter DF curve positioned out in the coronary sinus. RIGHT FEMORAL VEIN A 6-Mosotho sheath that was ultimately swapped out for an SR0 sheath followed then by the ablation Biosense ThermoCool SmartTouch DF curve radioablation catheter. We initially did treatment to assessment and confirm that the flutter was through the cavotricuspid isthmus. This was what we found to confirm that. Pacing from the coronary sinus 3-4, because 1-2 would not capture. The PPI interval was 320 milliseconds and the tachycardia cycle length at that time was 240 milliseconds so a difference of 80 milliseconds. Pacing CS proximal. The PPI interval was 270 milliseconds with a tachycardia cycle at 240 with a PPI minus tachycardia cycle length of 30 milliseconds, pacing halo distal. The PPI was 234 milliseconds. The tachycardia cycle length 240 milliseconds with the difference being 6 milliseconds. Pacing Halo prox was 7, PPI was 246, tachycardia cycle length was 240 again, difference of 6. Pacing Halo prox PPI was 276, the tachycardia cycle length was 240 making the difference 44. When I placed the ablation catheter on the cavotricuspid isthmus line the PPI interval was 260 milliseconds. Tachycardia cycle length at that time was 240 making the difference of 20 milliseconds. With coronary sinus 7-8 pacing to Halo distal was 100 milliseconds and from Halo distal pacing to coronary sinus 7-8 it was 80 milliseconds. We did 3D activation mapping of the atrial flutter and confirmed that it was when early met late through the cavotricuspid isthmus line. We then set up for ablation of the cavotricuspid isthmus with putting the ablation catheter starting on the tricuspid valve region and coming down approximately 1 minute pena each at [address] to the IVC. There was a ridge and I did have to touch up the ridge. We did break the atrial flutter during an ablation last signal where in the Halo catheter and he did have a 3.1 second pause back to sinus rhythm with the conversion. We then continued our ablation and touching up our line with CS prox pacing until we had bidirectional block. Again I had to touch up the ridge area until I really got block pacing from coronary sinus 7-8 measuring the Halo distal after ablation was 122 milliseconds and then pacing from the halo distal and measuring map to coronary sinus 7-8 was 124 milliseconds. When I placed the ablation catheter lateral to the line and measured that to the coronary sinus 7-8, it was 210 milliseconds and when I measured from coronary sinus 7-8 pacing to where the ablation was lateral to the line it was 200 milliseconds confirming bidirectional block. During the waiting period I did an electrophysiology study with the following findings: Baseline intervals, CT 224 milliseconds, QRS 110 milliseconds, QT 404 milliseconds. Sinus cycle length 930 milliseconds, AH 114 milliseconds, HV 74 milliseconds. AV Wenckebach was 350 milliseconds. AV node ERP was 700/280 and 500/260. The atrial ERP was 700/200 and less than or equal to 500/200. With right ventricular pacing, there was VA conduction at 700 milliseconds but not at 500 milliseconds. The right ventricular ERP was 600/200 and 400/200. At this point, after our 30-minute waiting period I rechecked him and confirmed that there was bidirectional block by pacing the Halo distal and coronary sinus prox and measuring and everything looked good. The catheters were all removed from the heart and the body and then the sheaths were pulled using manual compression to establish hemostasis. IMPRESSION: 1. Successful radiofrequency ablation of the cavotricuspid isthmus due to persistent atrial flutter. 2. Bidirectional block across the cavotricuspid isthmus. 3. Sinus bradycardia. 4. Normal atrioventricular ozzy pathology. PLAN: Monitor patient overnight, 12-lead ECG. He is not allowed to do any heavy lifting or squatting for 1 week of more than 10 pounds. He should continue his Eliquis uninterrupted for at least the next month. I will see him in followup within the next month. I attest to the content of the Intraoperative Record and any orders documented therein. Any exception s are noted below.
--- NOTE | 2017-04-27 12:54 | Discharge Summary ---
Discharge Summary Date of Service Apr 27, 2017. Discharge Summary Admission Date: Discharge Date: Apr 28, 2017 Discharge Disposition: Home Principal Diagnosis: persistent atrial flutter, typical s/p flutter ablation Secondary Diagnoses/Problems: sinus bradycardia Factor V Leiden mutation HLD NICM EF 40-45% Muscular dystrophy type 1 Procedures: EPS, 3d activation mapping of RA typical atrial flutter, radiofrequency ablation of cavo-tricuspid isthmus Medication Reconciliation Continued Medications: Apixaban (Eliquis) 5 Mg Tab 5 MG PO BID, TAB Fexofenadine Hcl (Josee Allergy) 180 Mg Tab 180 MG PO QAM Fluoxetine (Prozac) 10 Mg Cap 10 MG PO QAM, CAP Admission Information Physical Exam (per Admitting): aaox3, NAD NC/AT, EOMI Supple, No JVD irregular S1/S2, no murmur CTA b/l No w/r/r soft NT/ND No Edema b/l no focal deficits skin intact Hospital Course Pt admitted for elective atrial flutter ablation; underwent procedure without any complications. Monitored overnight and discharged home. Total time spent on discharge = 30 minutes This includes examination of the patient, discharge planning, medication reconciliation, and communication with other providers. Discharge Instructions ACTIVITY RECOMMENDATIONS: It is common to feel weak and fatigue for a few days. * Do not drive or operate any motorized equipment for the next 1 day. * Limit stair usage (2 or 3 trips a day only) for the next three days. * Do not lift anything heavier than 10 pounds for the next7 days. * Do not engage in vigorous exercise or any sports for the next 7 days. * You may shower the day after your procedure, but do not immerse the area for three days. Cleanse the site gently with soap and water. SPECIAL CARE INSTRUCTIONS: * You may replace the pressure dressing or band-aid the morning after the procedure. * After your procedure, it is normal to have a small bruise or small lump at the site. Examine your site daily for any change in the bruise or lump, redness, swelling, drainage or numbness. Notify your doctor if any change. BLEEDING: * If there is a small amount of bleeding at the site, lie down and apply firm pressure with a clean cloth for ten minutes. When the bleeding stops, lie quietly keeping the procedure limb straight for six hours. Notify your doctor as soon as possible. * If the bleeding does not stop after ten minutes or if there is a large amount of bleeding or spurting, call 911 immediately. Continue to lie down and hold firm pressure until help arrives. SKIN IRRITATION: * You may experience some redness and/or swelling in the area where radiation was administered. If any skin irritation occurs, please contact your family physician. FOLLOW UP VISIT: Keep any scheduled doctor appointments.
[2017-04-27] MEDS: APIXABAN 2.5 MG TAB PO SCH (21:53)
[2017-04-28 00:01] VITALS: O2SAT 92
[2017-04-28 04:00] VITALS: O2SAT 92
[2017-04-28 04:20] VITALS: BP 99/64; PULSE 71; TEMP 36.9; O2SAT 92
[2017-04-28 06:58] VITALS: BP 95/63; PULSE 62; TEMP 36.7; O2SAT 94
[2017-04-28] MEDS: APIXABAN 2.5 MG TAB PO SCH (07:48)
--- NOTE | 2017-04-28 08:08 | Anesthesiology Progress Note ---
Anesthesia Post Op Note Date & Time Apr 28, 2017 at 08:08 Vital Signs Pain Intensity: 0.0 Vital Signs Past 12 Hours Date Time Temp Pulse Resp B/P (MAP) Pulse Ox O2 Delivery O2 Flow Rate FiO2 04/28/17 06:58 36.7 62 16 95/63 (74) 94 Room Air 04/28/17 04:20 36.9 71 19 99/64 (76) 92 Room Air 04/28/17 04:00 92 Room Air 04/28/17 00:01 92 Room Air 04/27/17 23:44 37.5 99 20 111/76 (88) 92 Room Air Notes Mental Status: alert / awake / arousable, participated in evaluation Pt Amnestic to Procedure: Yes Nausea / Vomiting: adequately controlled Pain: adequately controlled Airway Patency, RR, SpO2: stable & adequate BP & HR: stable & adequate Hydration State: stable & adequate Anesthetic Complications: no major complications apparent
[2017-04-28] MEDS ORDERED: FLUOXETINE HCL 10 MG CAP PO SCH (09:00)
[2017-04-28] MEDS ORDERED: FEXOFENADINE HCL 180 MG TAB PO SCH (09:00)
--- NOTE | 2017-04-28 09:26 | Cardiology Follow-Up ---
Subjective General Date of Service: Apr 28, 2017. Chief Complaint: s/p ablation Pt evaluation today including: conversation w/ patient, physical exam, chart review, lab review, review of studies, review of inpatient medication list History of Present Illness Patient feeling well this AM post ablation. Denies chest pain or SOB. No pain at b/l groin access sites. No drainage or erythema. Telemetry reviewed - NSR without recurrent afib/flutter. Allergies Coded Allergies: Azithromycin (Verified Allergy, Mild, MADE HIM FEEL SICKER THAN HE WAS, ) Sulfamethoxazole w/Trimethoprim (Unverified Allergy, Mild, HIVES, 04/27/17 ) Social History Smoking Status: Never Smoker Hx Tobacco Use In Past Year?: No Hx Alcohol Use - Type And Amou: Yes (OCCDASIONAL BEER) Hx Substance Use - Type And Am: No Problem List Medical Problems: (1) Abdominal pain Status: Acute (2) Gastritis Status: Acute (3) Nausea and vomiting Status: Acute (4) Vomiting Status: Acute Review of Systems Respiratory: No cough, No sputum, No wheezing, No shortness of breath, No dyspnea on exertion, No dyspnea at rest, No hemoptysis Cardiac: No chest pain, No orthopnea, No PND, No edema, No palpitations Physical Exam Vital Signs Last Vital Signs Documentation Date Time Temp Pulse Resp B/P (MAP) Pulse Ox O2 Delivery O2 Flow Rate FiO2 04/28/17 08:00 Room Air 04/28/17 06:58 36.7 62 16 95/63 (74) 94 04/27/17 13:45 3 Physical Exam Constitutional: General Apperance: heathly-appearing Level of Distress: NAD Psychiatric: Mental Status: active & alert Orientation: to time, to place, to person Eyes: Pupils: PERRLA Neck: supple Lungs: Respiratory effort: no dyspnea Auscultation: breath sounds normal, no wheezing, no rales/crackles, no rhonchi Cardiovascular: Heart Auscultation: RRR, normal S1, normal S2, no murmurs Peripheral Pulses: Dorsalis Pedis Pulse: normal on the left, normal on the right Abdomen: Bowel Sounds: normal Inspection & Palpation: soft, non-distended Extremities: no cyanosis, no edema Assessment and Plan Assessment and Plan 36 year old s/p atrial flutter ablation. No arrhythmias overnight on telemetry. Maintaining NSR. Lifting restrictions reviewed with patient. Continue current medications on discharge. No changes will be made. Keep f/u as scheduled with Dr. Park on 05/24/2017 @ 2:20 PM at [facility]. CARDIOLOGY ATTENDING ADDENDUM: The patient was seen and personally examined. Agree with Anjali Olmedo PA-C's findings and plans as documented above.
[2017-04-28 10:27] VITALS: BP 95/63; PULSE 62; TEMP 36.7; O2SAT 94
== END 2017-04-28 10:55 | disposition home or self-care (01) ==
LOC: C.ACU 06:36 → C.2T 11:36 → ENRESERV 13:24
PROVIDERS: ADMIT Internal Medicine; ATTEND Internal Medicine
DX: I48.3 Typical atrial flutter (principal); R00.1 Bradycardia, unspecified; G35 Multiple sclerosis; D68.51 Activated protein C resistance; F98.8 Other specified behavioral and emotional disorders with onset usually occurring in childhood and adolescence; F41.1 Generalized anxiety disorder; E78.5 Hyperlipidemia, unspecified

== ENCOUNTER 2017-08-26 03:49 | Inpatient (IN) | payer OTHER ==
[~2017-08-26] VITALS: Ht 167.6 cm; Wt 61.7 kg
[~2017-08-26 03:49] MED LIST changes: -FEXO1TAB49 PO; -FLUO10CA48 PO; -LACTATED RINGER'S 1000ML 1,000 ML IV SCH; -PROPOFOL IV EMULSION 10 MG/ML 100 ML VIAL IV ONE
--- NOTE | 2017-08-26 05:00 | EMERGENCY ROOM VISIT NOTE ---
History First contact with patient: 04:19 Chief Complaint: ABDOMINAL PAIN Stated Complaint: STOMACH PAIN,VOMITING,CHILLS History of Present Illness The patient is a 36 year old male who presents to the Emergency Room with complaints of abdominal pain which began 3 days ago. The patient reports that he has had pain in the middle of his abdomen. He has had a few episodes of vomiting, especially at night. He has been cold despite being under several blankets. He denies any history of abdominal problems or surgeries. He denies urinary symptoms or changes in bowel movements. The patient does admit that his cat was diagnosed with cancer 3 days ago, correlating with the time that the pain began. He had to have his cat put down yesterday and states that he is very sad about this. He rates his discomfort an 8/10. He denies chest pain or shortness of breath. Review of Systems A complete 10 point review of systems was reviewed with the patient with pertinent positives and negatives as per history of present illness. All else were negative. Past Medical/Surgical History Medical Problems: (1) Atrial flutter (2) Factor V Leiden (3) Myotonic muscular dystrophy Family History FH: cancer Social History Smoking Status: Never Smoker Alcohol Use: occasionally Housing Status: lives with family Current/Historical Medications Scheduled Fexofenadine Hcl (Josee Allergy), 180 MG PO QAM Fluoxetine (Prozac), 10 MG PO QAM Multiple Vitamin (Multi Vitamin), 1 TAB PO DAILY Physical Exam Vital Signs Date Time Temp Pulse Resp B/P (MAP) Pulse Ox O2 Delivery O2 Flow Rate FiO2 08/26/17 08:01 98 Nasal Cannula 2.0 08/26/17 08:00 78 Room Air 08/26/17 07:20 98 Nasal Cannula 2.0 08/26/17 07:20 16 68 Room Air 08/26/17 07:04 81 08/26/17 07:04 82 18 126/79 96 Room Air 08/26/17 06:00 71 18 137/83 96 Room Air 08/26/17 03:52 36.4 88 20 116/83 95 Room Air Physical Exam VITALS: Vitals are noted on the nurse's note and reviewed by myself. Vital signs stable. GENERAL: This is a 36-year-old male, in no acute distress, nondiaphoretic, well- developed well-nourished. SKIN: The skin was without rashes. HEAD: Normocephalic atraumatic. EARS: External auditory canals clear, tympanic membranes pearly abdi without erythema or effusion bilaterally. EYES: Pupils equal round and reactive to light and accommodation. NOSE: Patent, turbinates without inflammation or discharge. MOUTH: Mucous membranes moist. Tonsils are not enlarged. Pharynx without erythema or exudate. NECK: Supple without nuchal rigidity. No lymphadenopathy. HEART: Regular rate and rhythm without murmurs gallops or rubs. LUNGS: Clear to auscultation bilaterally without wheezes, rales or rhonchi. No retractions or accessory muscle use. ABDOMEN: Positive bowel sounds x 4. Soft, minimal tenderness in the center of the abdomen without guarding or rebound tenderness. NEURO: Patient was alert and oriented to person place and time. Medical Decision & Procedures ER Provider Diagnostic Interpretation: ABDOMEN 2VIEW W/PA CHEST RTN FINDINGS: The erect chest reveals no evidence of free air. There is no evidence of focal pulmonary consolidation.] Erect and supine views of the abdomen reveal no abnormally dilated loops of large or small bowel. There are no transition zone to indicate bowel obstruction. There is a mild to moderate amount of stool present throughout the colon IMPRESSION: No evidence of bowel obstruction. No evidence of free air. CT ABD/PELVIS IV CONTRAST ONLY IMPRESSION: 1. No evidence of bowel obstruction. No evidence of free air 2. No acute inflammatory changes. No evidence of acute diverticulitis. No evidence of acute appendicitis. 3. Trace free fluid in the pelvis 4. 17 mm right lobe hepatic mass likely representing a hemangioma CT ANGIOGRAM OF THE CHEST IMPRESSION: 1. There is no evidence of pulmonary embolus in the main, lobar, or segmental pulmonary arteries. 2. There is no airspace consolidation or pleural effusion. 3. Mild cardiac enlargement. Laboratory Results 08/26/17 05:05 Red Blood Count 4.77, Mean Corpuscular Volume 92.0, Mean Corpuscular Hemoglobin 32.1, Mean Corpuscular Hemoglobin Concent 34.9, Mean Platelet Volume 10.9, Neutrophils (%) (Auto) 53.2, Lymphocytes (%) (Auto) 30.9, Monocytes (%) (Auto) 11.1, Eosinophils (%) (Auto) 4.4, Basophils (%) (Auto) 0.2, Neutrophils # (Auto ) 2.30, Lymphocytes # (Auto) 1.34, Monocytes # (Auto) 0.48, Eosinophils # (Auto ) 0.19, Basophils # (Auto) 0.01 08/26/17 05:05 Test 08/26/17 05:05 08/26/17 05:14 White Blood Count 4.33 K/uL (4.8-10.8) Red Blood Count 4.77 M/uL (4.7-6.1) Hemoglobin 15.3 g/dL (14.0-18.0) Hematocrit 43.9 % (42-52) Mean Corpuscular Volume 92.0 fL (80-100) Mean Corpuscular Hemoglobin 32.1 pg (25-34) Mean Corpuscular Hemoglobin Concent 34.9 g/dl (32-36) Platelet Count 151 K/uL (130-400) Mean Platelet Volume 10.9 fL (7.4-10.4) Neutrophils (%) (Auto) 53.2 % Lymphocytes (%) (Auto) 30.9 % Monocytes (%) (Auto) 11.1 % Eosinophils (%) (Auto) 4.4 % Basophils (%) (Auto) 0.2 % Neutrophils # (Auto) 2.30 K/uL (1.4-6.5) Lymphocytes # (Auto) 1.34 K/uL (1.2-3.4) Monocytes # (Auto) 0.48 K/uL (0.11-0.59) Eosinophils # (Auto) 0.19 K/uL (0-0.5) Basophils # (Auto) 0.01 K/uL (0-0.2) RDW Standard Deviation 47.0 fL (36.4-46.3) RDW Coefficient of Variation 13.9 % (11.5-14.5) Immature Granulocyte % (Auto) 0.2 % Immature Granulocyte # (Auto) 0.01 K/uL (0.00-0.02) Anion Gap 5.0 mmol/L (3-11) Est Creatinine Clear Calc Drug Dose 93.9 ml/min Estimated GFR () 113.3 Estimated GFR (Non- 97.8 BUN/Creatinine Ratio 15.2 (10-20) Calcium Level 9.3 mg/dl (8.5-10.1) Total Bilirubin 0.4 mg/dl (0.2-1) Aspartate Amino Transf (AST/SGOT) 29 U/L (15-37) Alanine Aminotransferase (ALT/SGPT) 84 U/L (12-78) Alkaline Phosphatase 109 U/L (45-117) Troponin I < 0.015 ng/ml (0-0.045) Total Protein 7.5 gm/dl (6.4-8.2) Albumin 4.1 gm/dl (3.4-5.0) Globulin 3.4 gm/dl (2.5-4.0) Albumin/Globulin Ratio 1.2 (0.9-2) Lipase 161 U/L (73-393) Urine Color YELLOW Urine Appearance CLEAR (CLEAR) Urine pH 5.0 (4.5-7.5) Urine Specific [place] 1.028 (1.000-1.030) Urine Protein NEG (NEG) Urine Glucose (UA) NEG (NEG) Urine Ketones TRACE (NEG) Urine Occult Blood NEG (NEG) Urine Nitrite NEG (NEG) Urine Bilirubin NEG (NEG) Urine Urobilinogen NEG (NEG) Urine Leukocyte Esterase NEG (NEG) Medications Administered Medications (Trade) Dose Ordered Sig/Miguel Route Start Time Stop Time Status Last Admin Dose Admin Ondansetron HCl (Zofran Inj) 4 mg NOW STAT IV 08/26/17 05:57 08/26/17 05:58 DC 08/26/17 06:03 4 MG ED Course The patient was evaluated as above. Labs were drawn and IV access was obtained. Patient was medicated with 4 mg Zofran IV. Patient was reevaluated and was complaining of more pain. CT of the abdomen and pelvis was ordered. I went to speak with the patient regarding discharge instructions. His oxygen saturation dropped to 68% on room air with good waveform. Patient was placed on 2 L oxygen nasal cannula. Patient's nasal cannula was removed and oxygen saturations again dropped into the 70s. CTA of the chest was performed and showed no evidence of PE. Patient was reevaluated and findings were discussed. He will be admitted for further workup. Case was discussed with the [facility] [address] hospitalist. They agreed to evaluate the patient for admission. The patient was given 0.5 mg Ativan sublingual for anxiety. Medical Decision Differential diagnosis includes colitis, gastroenteritis, small bowel obstruction, cholecystitis, appendicitis, diverticulitis, among others. The patient is a 36-year-old male who presents today complaining of abdominal pain. Labs revealed no leukocytosis, anemia or concerning electrolyte abnormalities. Urinalysis was not suggestive of infection. CT of the abdomen and pelvis was unremarkable. As I was about to discharge the patient, he became hypoxic. He had 2 episodes of hypoxia with saturations in the 60s and 70s with good waveform. Patient was asymptomatic at that time, although lips did become slightly pale. CTA of the chest was negative. Patient was admitted to the [facility] service for evaluation of hypoxia. Medication Reconcilliation Current Medication List: was personally reviewed by oh Blood Pressure Screening Patient's blood pressure: Normal blood pressure Impression Primary Impression: Hypoxia Additional Impression: Abdominal pain Departure Information Referrals Jose Engel M.D. (PCP) Patient Instructions My [facility] Problem Qualifiers Additional Impression: Abdominal pain Abdominal location: generalized Qualified Codes: R10.84 - Generalized abdominal pain
[2017-08-26 05:21] LABS: BASO % 0.2 %; BASO ABS # 0.01 K/uL (0-0.2); EOS % 4.4 %; EOS ABS # 0.19 K/uL (0-0.5); HEMATOCRIT 43.9 % (42-52); HEMOGLOBIN 15.3 g/dL (14.0-18.0); IG# 0.01 K/uL (0.00-0.02); LYMPH % 30.9 %; LYMPH ABS # 1.34 K/uL (1.2-3.4); MEAN CORPUSCULAR HEMOGLOBIN 32.1 pg (25-34); MEAN CORPUSCULAR HGB CONC 34.9 g/dl (32-36); MEAN PLATELET VOLUME 10.9 fL (7.4-10.4); MONO % 11.1 %; MONO ABS # 0.48 K/uL (0.11-0.59); NEUT % 53.2 %; PLATELET COUNT 151 K/uL (130-400); RED CELL DISTRIBUTION WIDTH CV 13.9 % (11.5-14.5); WHITE BLOOD COUNT 4.33 K/uL (4.8-10.8)
[2017-08-26 05:44] LABS: ALBUMIN 4.1 gm/dl (3.4-5.0); CALCIUM 9.3 mg/dl (8.5-10.1); POTASSIUM 3.7 mmol/L (3.5-5.1)
[2017-08-26 05:47] LABS: TOTAL PROTEIN 7.5 gm/dl (6.4-8.2)
[2017-08-26] MEDS ORDERED: ONDANSETRON INJ 2 MG/ML 2 ML VIAL IV STA ×2 (05:57→06:51)
[2017-08-26] MEDS ORDERED: OPTIRAY 320 IV PRN ×2 (06:30→08:00)
--- NOTE | 2017-08-26 06:35 | EMERGENCY ROOM VISIT NOTE ---
ED Visit Note First contact with patient: 04:19 I saw this patient in conjunction with Azeb Ku PA-C. I agree with her decision making and treatment plan.
[2017-08-26] MEDS ORDERED: MoRPHine SULFATE 4 MG/ML 1 ML CARP\\VIAL IV STA (06:51)
[2017-08-26] MEDS ORDERED: MULT-1027 PO (06:53)
--- NOTE | 2017-08-26 07:00 | DIAGNOSTIC IMAGING REPORT ---
CT ABD/PELVIS IV CONTRAST ONLY CLINICAL HISTORY: Lower abdominal pain and vomiting COMPARISON STUDY: March 13, 2016 TECHNIQUE: Following the IV administration of 119 mL of Optiray-320, CT scan of the abdomen and pelvis was performed from the lung bases to the proximal femurs. Images are reviewed in the axial, sagittal, and coronal planes. IV contrast was administered without complication. A dose lowering technique was utilized adhering to the principles of ALARA. CT DOSE: 277.42 mGy.cm FINDINGS: Lower chest: There are minor atelectatic changes present the lung bases Liver: There is a 17 mm right lobe hepatic nodule demonstrating peripheral nodular enhancement. This may represent a hemangioma. This was present in 2013. Gallbladder: Unremarkable. Spleen: Normal in size and attenuation. Pancreas: Unremarkable. Adrenal glands: Unremarkable. Kidneys: There are left renal cortical cysts. The largest measures 9 mm. No solid renal masses are visualized. Bowel: There are no transition zones indicate bowel obstruction. There is no evidence of acute diverticulitis. There are no findings to indicate acute appendicitis. A fat-containing ringlike opacity within the left lower quadrant, likely represents an area of prior fat necrosis/epiploic appendigitis. Peritoneum: There is trace free fluid in the pelvis. No free intraperitoneal air is visualized Vasculature: The abdominal aorta is normal in course and caliber. Adenopathy: None. Pelvic viscera: The bladder, and pelvic viscera are unremarkable. Skeletal structures: No destructive osseous lesions are seen. IMPRESSION: 1. No evidence of bowel obstruction. No evidence of free air 2. No acute inflammatory changes. No evidence of acute diverticulitis. No evidence of acute appendicitis. 3. Trace free fluid in the pelvis 4. 17 mm right lobe hepatic mass likely representing a hemangioma Electronically signed by: Yannick King M.D. 08/26/2017 6:59 AM Dictated Date/Time: 08/26/2017 6:53 AM
--- NOTE | 2017-08-26 07:07 | DIAGNOSTIC IMAGING REPORT ---
ABDOMEN 2VIEW W/PA CHEST RTN CLINICAL HISTORY: central abdominal pain COMPARISON STUDY: 04/27/2017 FINDINGS: The erect chest reveals no evidence of free air. There is no evidence of focal pulmonary consolidation.] Erect and supine views of the abdomen reveal no abnormally dilated loops of large or small bowel. There are no transition zone to indicate bowel obstruction. There is a mild to moderate amount of stool present throughout the colon IMPRESSION: No evidence of bowel obstruction. No evidence of free air. Electronically signed by: Yannick King M.D. 08/26/2017 7:06 AM Dictated Date/Time: 08/26/2017 7:05 AM
[2017-08-26] MEDS ORDERED: SODIUM CHLORIDE 0.9% 1000ML 1,000 ML IV STA (07:47)
--- NOTE | 2017-08-26 08:44 | DIAGNOSTIC IMAGING REPORT ---
CT ANGIOGRAM OF THE CHEST CLINICAL HISTORY: Hypoxia. COMPARISON STUDY: Chest x-ray dated 08/26/2017. Abdominal CT dated 08/26/2017. TECHNIQUE: Following the IV administration of 80 cc of Optiray 320, CT angiogram of the chest was performed from the upper abdomen to the thoracic inlet utilizing the pulmonary embolus protocol. Images are reviewed in the axial, sagittal, and coronal planes. 3-D MIPS images are created and assessed. IV contrast was administered without complication. A dose lowering technique was utilized adhering to the principles of ALARA. CT DOSE: 321.87 mGycm FINDINGS: Thyroid: Imaged portions of the thyroid gland are normal in size and attenuation. Thoracic aorta: The thoracic aorta is normal in caliber and demonstrates standard 3-vessel arch anatomy. No dissection is seen. Pulmonary vasculature: The pulmonary trunk is normal in caliber. There are no filling defects identified in main, lobar, or segmental pulmonary branches to suggest pulmonary embolus. Heart: The heart is mildly enlarged and without pericardial effusion. Lungs and pleural spaces: Evaluation the lung parenchyma is modestly degraded by motion artifact. No airspace consolidation or pleural effusion is identified. Bibasilar atelectasis is observed. The trachea and central airways are clear. Mediastinum: Minimal residual thymic tissue is suggested in the anterior mediastinum. There is no mediastinal lymphadenopathy. Carolann: Clear. Axillae: There is no axillary lymphadenopathy. Upper abdomen: There is a small hiatal hernia. Excreted contrast is present within the renal collecting system bilaterally. A 1.5 cm low-attenuation lesion in the right hepatic lobe is seen on image #75. This likely represents a hemangioma when correlated with today's abdominal CT. Skeletal structures: No lytic or blastic bony lesions are seen. IMPRESSION: 1. There is no evidence of pulmonary embolus in the main, lobar, or segmental pulmonary arteries. 2. There is no airspace consolidation or pleural effusion. 3. Mild cardiac enlargement. Electronically signed by: Ashish Aparicio M.D. 08/26/2017 8:43 AM Dictated Date/Time: 08/26/2017 8:38 AM
[2017-08-26] MEDS ORDERED: LORAZEPAM 0.5 MG TAB SL STA (09:22)
[2017-08-26] MEDS ORDERED: ONDANSETRON INJ 2 MG/ML 2 ML VIAL IV PRN (10:45)
[2017-08-26] MEDS ORDERED: ACETAMINOPHEN 325 MG TAB PO PRN (10:45)
[2017-08-26] MEDS ORDERED: POLYETHYLENE (MIRALAX) 17 GM PACK PO PRN (10:45)
[2017-08-26] MEDS ORDERED: LORAZEPAM 2 MG/ML 1 ML VIAL IV PRN (11:15)
[2017-08-26 11:44] VITALS: BP 122/78; PULSE 84; TEMP 36.6; O2SAT 92; Ht 167.6 cm; Wt 61.7 kg
[2017-08-26 12:00] VITALS: O2SAT 92
[2017-08-26] MEDS ORDERED: SODIUM CHLORIDE 0.9% 1000ML 1,000 ML IV SCH (12:00)
[2017-08-26] MEDS ORDERED: LORAZEPAM INJ 0.5 MG in SYRINGE 0.75 ML IV PRN (12:00)
--- NOTE | 2017-08-26 12:15 | History and Physical ---
History & Physical Date & Time of Service: Aug 26, 2017 at 10:53 Chief Complaint: Stomach Pain,Vomiting,Chills Primary Care Physician: Jose Engel M.D. History of Present Illness Source: patient, family, clinic records, hospital records Pt is 36 y/o M with PMH myotonic muscular dystrophy, anxiety, allergic rhinitis , a-flutter s/p ablation presented to ER with c/o abdominal pain. Pt very upset and anxious about the loss of his cat which occurred this week. He c/o mid abdominal discomfort. He admits hasn't been eating and drinking much as he doesn 't have an appetite and when he tries to eat, he becomes nauseated and dry heaves. States has vomited a couple of times but has been mostly bile. No prior treatment at home. Denies hx abdominal surgeries. Pt's mother with him in exam room and she reports she takes care of his medical care. Pt with hx anxiety and is on fluoxetine daily which she reports helps, however when major life events occur, he has increased anxiety. She reports his typical symptoms are crying, very anxious, abdominal pain, nausea, vomiting. States symptoms past couple days are his typical symptoms. In past pt seen psychologist, however hasn't for awhile. Mother reports pt has issues with hospitals and that makes him more anxious also as he had loss of his father a couple of years ago and mother states that pt fixates on that when in a hospital also. Mother reports pt had URI symptoms previously that had resolved. He was having some globus sensation which she reports had video done to evaluate. Pt denies recent choking and he doesn't feel he has globus sensation at this time. He reports being able to swallow liquid and solids well, but bread or dry potatoes sometimes feel like "stick in throat". States pt has some SOB with climbing 2 flights of stairs. Denies fever/chills, diaphoresis, diarrhea, constipation, melena, hematochezia, UGALDE, dizziness, syncope, vision changes, neck pain, CP, increased SOB, orthopnea , palpitations, cough, sore throat, otalgia, rhinorrhea, paresthesias, extremity edema, rashes, urinary symptoms. Denies suicidal/homicidal ideations. In ER pt given Zofran, he denied pain medicine. Negative abdominal workup, however noted pt had episode of hypoxia sats down to 68% on RA. Pt placed on O2 2L NC and sats up to 98%. Pt denies any further abdominal pain. Pt with hx PFT 05/2017: showing normal FEV1/FVC ratio, no obstructive ventilatory defect, normal lung capacity with no signs of restrictive lung disease, air trapping, or hyperventilation. Mother reports pt had a sleep study, and was told he might need supplemental oxygen by CPAP, but it wasn't necessary. Pt with hx videostroboscopic evaluation of larynx 07/2017 for dysphagia to bread and dry potatoes. Results: Normal laryngeal function with pooled secretions in lateral hypopharynx and pyriform sinuses with none to endolarynx, no observed aspiration. Vocal cord mobility intact. recommended speech therapy evaluation Past Medical/Surgical History Medical Problems: (1) Anxiety Status: Chronic (2) Atrial flutter Permanent Comment: s/p ablation Status: Chronic (3) Factor V Leiden Status: Chronic (4) Myotonic muscular dystrophy Status: Chronic Surgical Problems: (1) History of cardiac radiofrequency ablation Permanent Comment: for a-flutter Status: Resolved Family History FH: cancer Social History Smoking Status: Never Smoker Smokeless Tobacco Use: No Alcohol Use: none Drug Use: none Marital Status: single Housing status: lives with family Occupational Status: employed Multi-Drug Resistant Organisms History of MDRO: No Allergies Coded Allergies: Azithromycin (Verified Allergy, Mild, MADE HIM FEEL SICKER THAN HE WAS, 08/26/17) Sulfamethoxazole w/Trimethoprim (Unverified Allergy, Mild, HIVES, 08/26/17) Home Medications Scheduled Fexofenadine Hcl (Freda Allergy), 180 MG PO QAM Fluoxetine (Prozac), 10 MG PO QAM Multiple Vitamin (Multi Vitamin), 1 TAB PO DAILY Review of Systems See HPI for pertinent positives & negatives. All other systems reviewed and were otherwise negative Physical Exam Vital Signs Date Time Temp Pulse Resp B/P (MAP) Pulse Ox O2 Delivery O2 Flow Rate FiO2 08/26/17 10:50 65 08/26/17 10:30 129/90 08/26/17 10:15 84 13 97 08/26/17 10:00 123/102 08/26/17 09:45 74 20 92 08/26/17 09:39 115/88 08/26/17 09:30 115/88 08/26/17 09:15 100 19 98 08/26/17 09:01 110/70 08/26/17 08:45 86 25 99 08/26/17 08:01 98 Nasal Cannula 2.0 08/26/17 08:00 78 Room Air 08/26/17 08:00 116/87 08/26/17 07:45 68 21 99 08/26/17 07:30 117/83 08/26/17 07:20 98 Nasal Cannula 2.0 08/26/17 07:20 16 68 Room Air 08/26/17 07:15 87 17 99 08/26/17 07:04 81 08/26/17 07:04 82 18 126/79 96 Room Air 08/26/17 07:03 126/79 08/26/17 06:00 71 18 137/83 96 Room Air 08/26/17 03:52 36.4 88 20 116/83 95 Room Air General Appearance: + thin, + pertinent finding (Pt tearful and crying and hyperventilating, is able to be redirected to focus on gentle, slow breathing. Mother at bedside and reassures pt) Head: normocephalic, atraumatic Eyes: normal inspection, PERRL, EOMI, sclerae normal ENT: hearing grossly normal, pharynx normal, + pertinent finding (mucous membranes mildly dry) Neck: supple, no JVD, trachea midline Respiratory/Chest: lungs clear, normal breath sounds, no respiratory distress, no accessory muscle use Cardiovascular: regular rate, rhythm, no murmur Abdomen/GI: normal bowel sounds, non tender, soft Back: no CVA tenderness Extremities/Musculoskelatal: no calf tenderness, normal capillary refill, no pedal edema, non-tender Neurologic/Psych: alert, oriented x 3, + pertinent finding (anxious, crying) Skin: normal color, warm/dry Diagnostics Laboratory Results Results Past 24 Hours Test 08/26/17 05:05 08/26/17 05:14 Range/Units White Blood Count 4.33 4.8-10.8 K/uL Red Blood Count 4.77 4.7-6.1 M/uL Hemoglobin 15.3 14.0-18.0 g/dL Hematocrit 43.9 42-52 % Mean Corpuscular Volume 92.0 80-100 fL Mean Corpuscular Hemoglobin 32.1 25-34 pg Mean Corpuscular Hemoglobin Concent 34.9 32-36 g/dl Platelet Count 151 130-400 K/uL Mean Platelet Volume 10.9 7.4-10.4 fL Neutrophils (%) (Auto) 53.2 % Lymphocytes (%) (Auto) 30.9 % Monocytes (%) (Auto) 11.1 % Eosinophils (%) (Auto) 4.4 % Basophils (%) (Auto) 0.2 % Neutrophils # (Auto) 2.30 1.4-6.5 K/uL Lymphocytes # (Auto) 1.34 1.2-3.4 K/uL Monocytes # (Auto) 0.48 0.11-0.59 K/uL Eosinophils # (Auto) 0.19 0-0.5 K/uL Basophils # (Auto) 0.01 0-0.2 K/uL RDW Standard Deviation 47.0 36.4-46.3 fL RDW Coefficient of Variation 13.9 11.5-14.5 % Immature Granulocyte % (Auto) 0.2 % Immature Granulocyte # (Auto) 0.01 0.00-0.02 K/uL Sodium Level 139 136-145 mmol/L Potassium Level 3.7 3.5-5.1 mmol/L Chloride Level 104 98-107 mmol/L Carbon Dioxide Level 30 21-32 mmol/L Anion Gap 5.0 3-11 mmol/L Blood Urea Nitrogen 15 7-18 mg/dl Creatinine 1.00 0.60-1.40 mg/dl Est Creatinine Clear Calc Drug Dose 93.9 ml/min Estimated GFR () 113.3 Estimated GFR (Non- 97.8 BUN/Creatinine Ratio 15.2 10-20 Random Glucose 93 70-99 mg/dl Calcium Level 9.3 8.5-10.1 mg/dl Total Bilirubin 0.4 0.2-1 mg/dl Aspartate Amino Transf (AST/SGOT) 29 15-37 U/L Alanine Aminotransferase (ALT/SGPT) 84 12-78 U/L Alkaline Phosphatase 109 45-117 U/L Troponin I < 0.015 0-0.045 ng/ml Total Protein 7.5 6.4-8.2 gm/dl Albumin 4.1 3.4-5.0 gm/dl Globulin 3.4 2.5-4.0 gm/dl Albumin/Globulin Ratio 1.2 0.9-2 Lipase 161 73-393 U/L Urine Color YELLOW Urine Appearance CLEAR CLEAR Urine pH 5.0 4.5-7.5 Urine Specific [place] 1.028 1.000-1.030 Urine Protein NEG NEG Urine Glucose (UA) NEG NEG Urine Ketones TRACE NEG Urine Occult Blood NEG NEG Urine Nitrite NEG NEG Urine Bilirubin NEG NEG Urine Urobilinogen NEG NEG Urine Leukocyte Esterase NEG NEG Diagnostic Radiology CT CHEST: IMPRESSION: 1. There is no evidence of pulmonary embolus in the main, lobar, or segmental pulmonary arteries. 2. There is no airspace consolidation or pleural effusion. 3. Mild cardiac enlargement. CT ABD: IMPRESSION: 1. No evidence of bowel obstruction. No evidence of free air 2. No acute inflammatory changes. No evidence of acute diverticulitis. No evidence of acute appendicitis. 3. Trace free fluid in the pelvis 4. 17 mm right lobe hepatic mass likely representing a hemangioma CHEST/ABD XRAY: IMPRESSION: No evidence of bowel obstruction. No evidence of free air. EKG EKG: NSR, rate 78 Impression Assessment and Plan HYPOXIA Pt presented to ER with abdominal pain, however found to have episode hypoxia, sats down to 68% on RA, increased to 98% on 2L NC. CTA chest: negative for PE or consolidation. Negative troponin. Denies hx asthma/COPD. ?sleep apnea, mother reports was told pt may benefit from supplemental oxygen/CPAP HS. unable to find that report Pt with hx PFT in 05/2017: normal FEV1/FVC ratio, no obstructive ventilatory defect, normal lung capacity with no signs of restrictive lung disease, air trapping, or hyperventilation. hx videostroboscopic evaluation of larynx 07/2017 : Normal laryngeal function with pooled secretions in lateral hypopharynx and pyriform sinuses with none to endolarynx, no observed aspiration. Vocal cord mobility intact. -Admitted tele to monitor -supplemental oxygen -speech therapy to evaluate any swallowing abnormalities -repeat CXR in am -pulmonology consult -echo to evaluate for shunting -consider 2 step ANXIETY Pt with hx anxiety on fluoxetine. Increased anxiety with the recent of his cat -continue fluoxetine -ativan prn -psych consult ABDOMINAL PAIN Pt with mid abdominal pain x 3 days with anorexia, N/V. In ER No leukocytosis, UA WNL. CT abd: No evidence of bowel obstruction, free air, inflammatory changes , diverticulosis or appendicitis. Trace free fluid in the pelvis. 17 mm right lobe hepatic mass likely representing a hemangioma Suspect abdominal pain secondary to increased anxiety. Abdominal pain and vomiting resolved. Will continue to monitor -clear liquids -zofran prn -consider MRI abd to further assess likely hemangioma MYOTONIC MUSCULAR DYSTROPHY Follows with [facility]. No increased symptoms HX A-FLUTTER S/P ABLATION Sinus rhythm today -monitor ALLERGIC RHINITIS -continue freda DVT Prophylaxis -Lovenox Disposition admit tele Full Code as per discussion with pt/mother Follows with Dr Engel for routine care Pt was seen with Dr Cross. See addendum ATTENDING ADDENDUM care coordinated with DARBY Poe please refer to her notes for full details, I agree with her notes patient seen and examined, records reviewed by myself as well on exam, patient seen resting in bed, comfortable states he is feeling better denies dyspnea, chest pain no other symptoms VS noted and reviewed oriented x 3 , not in distress, speaks in sentences with no effort nor accessory muscle use normal rate, regular rhythm, no murmurs clear breath sounds bilaterally non distended, soft, nontender no bipedal edema, erythema, warmth no neuro deficits WBC 4.3 Hg 15 Crea 1 ASSESSMENT/PLAN> HYPOXIA - hypoventilation? shunting? - CT chest no PE, pneumonia - echo pending - pulmonary on board ABDOMINAL PAIN - CT abdomen negative - improving advance diet as tolerated other diagnoses and plan of care as per DARBY Johnson notes Gray Cross MD Level of Care Telemetry Resuscitation Status FULL RESUSCITATION VTE Prophylaxis VTE Risk Assessment Done? Y/N: Yes Risk Level: Moderate Given or contraindicated: Enoxaparin (Lovenox)SQ Additional Copies To Gray Cross MD
[2017-08-26] MEDS ORDERED: hydrOXYzine HCL 25 MG TAB PO PRN (13:30)
[2017-08-26 13:48] LABS: INFLUENZA B ANTIGEN Neg for Influ B (NEG)
--- NOTE | 2017-08-26 13:58 | Psychiatric Consultation ---
Consultation Date of Consultation Aug 26, 2017. Identifying Data Cabrera Rojo is a 36-year-old male admitted to the medical floor following presentation to the ED with abdominal pain and hypoxia. Pt has PMH of PMH myotonic muscular dystrophy, anxiety, and atrial-flutter s/p ablation. Psychiatric consult requested for anxiety. Chief Complaint "My best friend had to be put down - and by best friend I mean my cat". History of Present Illness Cabrera Rojo is a 36-year-old male who presented to the ED with abdominal pain. He was admitted to the medical floor for ongoing abdominal pain and hypoxia which has since been corrected with supplemental O2. Pt's PMH includes myotonic muscular dystrophy, anxiety, and atrial-flutter s/p ablations. CT of the abdomen remarkable for "17 mm right lobe hepatic mass likely representing a hemangioma". At this point, abdominal pain is suspected to be secondary to anxiety with recent stressors. Pt was seen on psychiatric consult service for evaluation of anxiety. Pt was awoken from sleep to complete the interview. The patient's mother remained at bedside with patient' s permission. Pt states he had taken his cat to the vet on Tuesday and was informed that the cat would need to be put down due to a tumor. Pt states his cat was his "best friend" and this was difficult for him to hear. Pt's reported he had a difficult time processing the news, but he was able to regain control after his mother talked with him about the situation. Pt stated his current abdominal pain began after hearing the news about his cat's illness. He states this has happened once before in response to anxiety/agitation when his family was vacationing. His mother states he was overwhelmed during the vacation, which coincided with his father's birthday, and due to the stress and anxiety "spent the entire week sick in the hotel room". Pt and his mother report the patient's father 4 years ago, he lost 2 uncles 2 years ago, and put down his cat within the past few days. 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 Pt states he has had passive thoughts in the past, but mother states most of these stem from his muscular dystrophy diagnosis. Pt denies any current thoughts or plans, although in the context of recent events, makes an off-color joke about "being euthanize while in the hospital". Pt is able to further explain, reassuring he does have support from family and friends and is not currently having these thoughts. Mother remains at bedside during this conversation and expresses no concerns about the mentioning of passive thoughts of . Pt admits to anxiety stating he feels that he worries quite a bit as well as experiencing racing thoughts, irritability, and feeling "on-edge". Pt denies panic attacks in the past. He denies low mood, anhedonia, hopelessness, and guilt. He does report increased sleep but states "my bed is just so warm". Mother is concerned about increased sleep and decreased appetite, but patient does not share the same concerns. Pt is currently prescribed Prozac 10mg and has been taking this dose for the past 10 years for "concentration" as reported by patient and his mother. Pt states he has not taken medications for anxiety or depression in the past. Pt has struggled with passive SI in the past with plans to drive car into a tree or hang himself. He denies these thoughts currently. He reports he has tolerated Prozac well. He denies SI/HI, A/V hallucinations, and other psychosis. Past Psychiatric History Current OP Treatment: no current treatment Prior OP Treatment: therapist (several providers for short period of time - no visits in the past 4 months) Prior Psych Hospitalizations: none Suicide Attempts: No Past Medication Trials Imipramine prior to Prozac over 10 years ago for "concentration". Past Medical/Surgical History (1) History of cardiac radiofrequency ablation (2) Myotonic muscular dystrophy (3) Factor V Leiden (4) Abdominal pain Allergies Allergies: Coded Allergies: Azithromycin (Verified Allergy, Mild, MADE HIM FEEL SICKER THAN HE WAS, 08/26/17) Sulfamethoxazole w/Trimethoprim (Unverified Allergy, Mild, HIVES, 08/26/17) Home Medications Scheduled Fexofenadine Hcl (Josee Allergy), 180 MG PO QAM Fluoxetine (Prozac), 10 MG PO QAM Multiple Vitamin (Multi Vitamin), 1 TAB PO DAILY Family History FH: cancer Smoking Use Smoking Status: Never Smoker Personal History Lives in: [place], [place] 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 Relationship History: never Children: none Legal History: none Review of Systems Psych: denies symptoms other than stated above Constitutional: denied Cardiovascular: denied GI: reports ongoing abdominal pain and nausea Neurologic: denied Remainder of 10 body systems also reviewed and denied other than noted above. Examination Vital Signs Vital Signs Past 12 Hours Date Time Temp Pulse Resp B/P (MAP) Pulse Ox O2 Delivery O2 Flow Rate FiO2 08/26/17 11:44 36.6 84 20 122/78 92 Nasal Cannula 3.0 08/26/17 11:21 36.4 63 13 116/86 94 08/26/17 11:05 63 13 94 08/26/17 11:00 116/86 08/26/17 10:50 65 08/26/17 10:35 102 10 98 08/26/17 10:30 129/90 08/26/17 10:15 84 13 97 08/26/17 10:00 123/102 08/26/17 09:45 74 20 92 08/26/17 09:39 115/88 08/26/17 09:30 115/88 08/26/17 09:15 100 19 98 08/26/17 09:01 110/70 08/26/17 08:45 86 25 99 08/26/17 08:01 98 Nasal Cannula 2.0 08/26/17 08:00 78 Room Air 08/26/17 08:00 116/87 08/26/17 07:45 68 21 99 08/26/17 07:30 117/83 08/26/17 07:20 98 Nasal Cannula 2.0 08/26/17 07:20 16 68 Room Air 08/26/17 07:15 87 17 99 08/26/17 07:04 81 08/26/17 07:04 82 18 126/79 96 Room Air 08/26/17 07:03 126/79 08/26/17 06:00 71 18 137/83 96 Room Air 08/26/17 03:52 36.4 88 20 116/83 95 Room Air Laboratory Results Last 24 Hours Test 08/26/17 05:05 08/26/17 05:14 08/26/17 11:19 White Blood Count 4.33 K/uL Red Blood Count 4.77 M/uL Hemoglobin 15.3 g/dL Hematocrit 43.9 % Mean Corpuscular Volume 92.0 fL Mean Corpuscular Hemoglobin 32.1 pg Mean Corpuscular Hemoglobin Concent 34.9 g/dl Platelet Count 151 K/uL Mean Platelet Volume 10.9 fL Neutrophils (%) (Auto) 53.2 % Lymphocytes (%) (Auto) 30.9 % Monocytes (%) (Auto) 11.1 % Eosinophils (%) (Auto) 4.4 % Basophils (%) (Auto) 0.2 % Neutrophils # (Auto) 2.30 K/uL Lymphocytes # (Auto) 1.34 K/uL Monocytes # (Auto) 0.48 K/uL Eosinophils # (Auto) 0.19 K/uL Basophils # (Auto) 0.01 K/uL RDW Standard Deviation 47.0 fL RDW Coefficient of Variation 13.9 % Immature Granulocyte % (Auto) 0.2 % Immature Granulocyte # (Auto) 0.01 K/uL Prothrombin Time 10.7 SECONDS Prothromb Time International Ratio 1.0 Sodium Level 139 mmol/L Potassium Level 3.7 mmol/L Chloride Level 104 mmol/L Carbon Dioxide Level 30 mmol/L Anion Gap 5.0 mmol/L Blood Urea Nitrogen 15 mg/dl Creatinine 1.00 mg/dl Est Creatinine Clear Calc Drug Dose 93.9 ml/min Estimated GFR () 113.3 Estimated GFR (Non- 97.8 BUN/Creatinine Ratio 15.2 Random Glucose 93 mg/dl Calcium Level 9.3 mg/dl Total Bilirubin 0.4 mg/dl Aspartate Amino Transf (AST/SGOT) 29 U/L Alanine Aminotransferase (ALT/SGPT) 84 U/L Alkaline Phosphatase 109 U/L Troponin I < 0.015 ng/ml Total Protein 7.5 gm/dl Albumin 4.1 gm/dl Globulin 3.4 gm/dl Albumin/Globulin Ratio 1.2 Lipase 161 U/L Urine Color YELLOW Urine Appearance CLEAR Urine pH 5.0 Urine Specific [place] 1.028 Urine Protein NEG Urine Glucose (UA) NEG Urine Ketones TRACE Urine Occult Blood NEG Urine Nitrite NEG Urine Bilirubin NEG Urine Urobilinogen NEG Urine Leukocyte Esterase NEG Mental Examination During interview pt is: cooperative, other (drowsy, in and out of sleep) Appearance: appropriately dressed (in hospital gown), appropriately groomed Eye contact is: fair (when awake) Motor behavior is: no abnormal motor movements Speech: other (slowed likely due to fatigue) Affect: mood congruent, blunted Mood is: other ("fine") Thought process: goal directed, clear, coherent Thought content: reality based without delusions Suicidal thought are: denied, Plan: denied, Intent: denied Homicidal thoughts are: denied, Plan: denied, Intent: denied Hallucinations: denies auditory, denies visual Cognition: memory grossly intact, attention grossly intact, language grossly intact Intelligence estimated to be: below average Insight: limited Judgement: limited Impression / Recommendations Impression Due to past history of abdominal pain and nausea with anxiety/stress, it is possible that his current presentation is due to anxiety with having to put his cat down. Treatment options for anxiety were discussed with both the patient and his mother to include increasing the patient's current dose of Prozac to 20mg qAM. Adding hydroxyzine prn anxiety in the interim was discussed and patient and mother were agreeable. Discussed risks, benefits, side effects, and alternatives with the patient and mother who both verbalized understanding and were agreeable. We discussed that we would trial the hydroxyzine while admitted and that the patient would likely not be discharged on lorazepam as it is not a recommended long-term treatment for anxiety. Inventory Assets Strengths: support from mother, passionate about his volunteering Needs: adequate control of anxiety symptoms Risk Factors Assessment Male: Yes : Yes /single/: Yes Health problems: Yes Previous attempt: No Smoker: No Protective Factors Assessment : No Responsible for young children: No Recommendations (1) Anxiety 08/26 - Increased Prozac to 20mg qAM to target mood and anxiety. Will plan to use prn hydroxyzine to target acute anxiety/agitation. Hydroxyzine should be offered prior to lorazepam in order to assess efficacy and possible level of sedation. - Discussed case with psychiatric liaison nurse who plans to assist with referrals to therapy if necessary. - Appreciate the opportunity to participate in the care of this patient. Dr. Sanchez has personally been involved in the review of the above case and development of recommendations.
[2017-08-26] MEDS ORDERED: FEXO1TAB49 PO (14:50)
[2017-08-26] MEDS ORDERED: FLUO10CA48 PO (14:53)
[2017-08-26 15:46] VITALS: BP 103/66; PULSE 63; TEMP 36.9; O2SAT 96
[2017-08-26 16:00] VITALS: O2SAT 92
[2017-08-26 19:00] VITALS: BP 102/67; PULSE 66; TEMP 36.8; O2SAT 94
--- NOTE | 2017-08-26 19:32 | Pulmonary Consultation ---
History General Date of Service: Aug 26, 2017. Chief Complaint: Hypoxia Stated Complaint: Abdominal Pain, Hypoxia HPI The patient is a 36 year old male who presents to [facility] with complaints of Abdominal Pain, Hypoxia. The patient's primary care provider is Jose Engel M.D.. The patient has a history of myoclonic muscular dystrophy. He presented with abdominal pain and suspected GI bleed. He was found to have hypoxia in the emergency room with SaO2 in the high 70s low 80s. He was placed on supplemental oxygen and had improvement to his SaO2 to the mid 90s. When nasal cannula was removed, patient continues to rapidly desaturate and demonstrates hypoxia. Patient is asymptomatic and denies any feelings of shortness of breath. He has no chest pain or tightness. He has no pleuritic pain. He has no cough or sputum production. He has no hemoptysis. He denies prior history of pulmonary disease. He denies any tobacco abuse patterns. At the time of our examination, he had no distress, no use of accessory muscles, and minimal hypoxia on room air. He had no other acute complaints. Historian: patient, family (Mother) Review of Systems A total of 12 systems was reviewed and is negative other than as listed above in the HPI All Other Symptoms All Other Systems: Reviewed and Negative Past Medical History Past Medical History: Medical Problems: (1) Anxiety (2) Atrial flutter (3) Factor V Leiden (4) Myotonic muscular dystrophy Past Surgical History: Surgical Problems: (1) History of cardiac radiofrequency ablation Family History FH: cancer Social History Hx Tobacco Use In Past Year?: No Smoking Status: Never Smoker Alcohol: occasional (Beer) Marital status: single Housing status: lives with family Occupational Status: employed History of MDRO History of MDRO: No Allergies Coded Allergies: Azithromycin (Verified Allergy, Mild, MADE HIM FEEL SICKER THAN HE WAS, 08/26/17) Sulfamethoxazole w/Trimethoprim (Unverified Allergy, Mild, HIVES, 08/26/17) Current Medications Reported Home Medications Medications Dose Route/Sig Max Daily Dose Days Date Category Multi Vitamin (Multiple Vitamin) 1 Tab Tab 1 Tab PO DAILY 08/26/17 Reported Josee Allergy (Fexofenadine Hcl) 180 Mg Tab 180 Mg PO QAM 04/13/17 Reported Prozac (Fluoxetine HCl) 10 Mg Cap 10 Mg PO QAM 09/16/13 Reported Physical Physical Exam Vital Signs: Date Time Temp Pulse Resp B/P (MAP) Pulse Ox O2 Delivery O2 Flow Rate FiO2 08/26/17 16:00 92 Nasal Cannula 3.0 08/26/17 15:46 36.9 63 18 103/66 (78) 96 Nasal Cannula 3.0 08/26/17 12:00 92 Nasal Cannula 3.0 08/26/17 11:44 36.6 84 20 122/78 92 Nasal Cannula 3.0 08/26/17 11:21 36.4 63 13 116/86 94 08/26/17 11:05 63 13 94 08/26/17 11:00 116/86 08/26/17 10:50 65 08/26/17 10:35 102 10 98 08/26/17 10:30 129/90 08/26/17 10:15 84 13 97 08/26/17 10:00 123/102 08/26/17 09:45 74 20 92 08/26/17 09:39 115/88 08/26/17 09:30 115/88 08/26/17 09:15 100 19 98 08/26/17 09:01 110/70 08/26/17 08:45 86 25 99 08/26/17 08:01 98 Nasal Cannula 2.0 08/26/17 08:00 78 Room Air 08/26/17 08:00 116/87 08/26/17 07:45 68 21 99 08/26/17 07:30 117/83 08/26/17 07:20 98 Nasal Cannula 2.0 08/26/17 07:20 16 68 Room Air 08/26/17 07:15 87 17 99 08/26/17 07:04 81 08/26/17 07:04 82 18 126/79 96 Room Air 08/26/17 07:03 126/79 08/26/17 06:00 71 18 137/83 96 Room Air 08/26/17 03:52 36.4 88 20 116/83 95 Room Air Weight in Kilograms: 22.7 GENERAL : No acute distress EYES: No icterus, gaze conjugate NOSE: No evidence of epistaxis MOUTH: No lesions or candidiasis NECK: Supple LUNGS: CTA B/L, no wheezes, rales or rhonchi HEART: Regular, rate controlled ABDOMEN: Soft, NT, ND, BS Present EXTREMITIES: No LE edema, pedal pulses intact NEURO: [facility] Diagn[facility] Labs Results Past 24 Hours Test 08/26/17 05:05 08/26/17 05:14 08/26/17 11:19 08/26/17 19:06 Range/Units White Blood Count 4.33 4.8-10.8 K/uL Red Blood Count 4.77 4.7-6.1 M/uL Hemoglobin 15.3 14.0-18.0 g/dL Hematocrit 43.9 42-52 % Mean Corpuscular Volume 92.0 80-100 fL Mean Corpuscular Hemoglobin 32.1 25-34 pg Mean Corpuscular Hemoglobin Concent 34.9 32-36 g/dl Platelet Count 151 130-400 K/uL Mean Platelet Volume 10.9 7.4-10.4 fL Neutrophils (%) (Auto) 53.2 % Lymphocytes (%) (Auto) 30.9 % Monocytes (%) (Auto) 11.1 % Eosinophils (%) (Auto) 4.4 % Basophils (%) (Auto) 0.2 % Neutrophils # (Auto) 2.30 1.4-6.5 K/uL Lymphocytes # (Auto) 1.34 1.2-3.4 K/uL Monocytes # (Auto) 0.48 0.11-0.59 K/uL Eosinophils # (Auto) 0.19 0-0.5 K/uL Basophils # (Auto) 0.01 0-0.2 K/uL RDW Standard Deviation 47.0 36.4-46.3 fL RDW Coefficient of Variation 13.9 11.5-14.5 % Immature Granulocyte % (Auto) 0.2 % Immature Granulocyte # (Auto) 0.01 0.00-0.02 K/uL Prothrombin Time 10.7 9.0-12.0 SECONDS Prothromb Time International Ratio 1.0 0.9-1.1 Sodium Level 139 136-145 mmol/L Potassium Level 3.7 3.5-5.1 mmol/L Chloride Level 104 98-107 mmol/L Carbon Dioxide Level 30 21-32 mmol/L Anion Gap 5.0 3-11 mmol/L Blood Urea Nitrogen 15 7-18 mg/dl Creatinine 1.00 0.60-1.40 mg/dl Est Creatinine Clear Calc Drug Dose 93.9 ml/min Estimated GFR () 113.3 Estimated GFR (Non- 97.8 BUN/Creatinine Ratio 15.2 10-20 Random Glucose 93 70-99 mg/dl Calcium Level 9.3 8.5-10.1 mg/dl Total Bilirubin 0.4 0.2-1 mg/dl Aspartate Amino Transf (AST/SGOT) 29 15-37 U/L Alanine Aminotransferase (ALT/SGPT) 84 12-78 U/L Alkaline Phosphatase 109 45-117 U/L Troponin I < 0.015 0-0.045 ng/ml Total Protein 7.5 6.4-8.2 gm/dl Albumin 4.1 3.4-5.0 gm/dl Globulin 3.4 2.5-4.0 gm/dl Albumin/Globulin Ratio 1.2 0.9-2 Lipase 161 73-393 U/L Urine Color YELLOW Urine Appearance CLEAR CLEAR Urine pH 5.0 4.5-7.5 Urine Specific [place]anda 1.028 1.000-1.030 Urine Protein NEG NEG Urine Glucose (UA) NEG NEG Urine Ketones TRACE NEG Urine Occult Blood NEG NEG Urine Nitrite NEG NEG Urine Bilirubin NEG NEG Urine Urobilinogen NEG NEG Urine Leukocyte Esterase NEG NEG Influenza Type A Antigen Neg for Influ A NEG Influenza Type B Antigen Neg for Influ B NEG Arterial Blood pH 7.41 7.35-7.45 Arterial Blood Partial Pressure CO2 45 35-46 mmHg Arterial Blood Partial Pressure O2 75 80-95 mm/Hg Arterial Blood HCO3 28 19-24 mmol/L Arterial Blood Oxygen Saturation 94.6 90-95 % Arterial Blood Base Excess 2.4 -9-1.8 mEq/L Arterial Blood Gas Delivery 2L Griffin Test POS POS Diagnostic Radiology CT ANGIOGRAM OF THE CHEST CLINICAL HISTORY: Hypoxia. COMPARISON STUDY: Chest x-ray dated 08/26/2017. Abdominal CT dated 08/26/2017. TECHNIQUE: Following the IV administration of 80 cc of Optiray 320, CT angiogram of the chest was performed from the upper abdomen to the thoracic inlet utilizing the pulmonary embolus protocol. Images are reviewed in the axial, sagittal, and coronal planes. 3-D MIPS images are created and assessed. IV contrast was administered without complication. A dose lowering technique was utilized adhering to the principles of ALARA. CT DOSE: 321.87 mGycm FINDINGS: Thyroid: Imaged portions of the thyroid gland are normal in size and attenuation. Thoracic aorta: The thoracic aorta is normal in caliber and demonstrates standard 3-vessel arch anatomy. No dissection is seen. Pulmonary vasculature: The pulmonary trunk is normal in caliber. There are no filling defects identified in main, lobar, or segmental pulmonary branches to suggest pulmonary embolus. Heart: The heart is mildly enlarged and without pericardial effusion. Lungs and pleural spaces: Evaluation the lung parenchyma is modestly degraded by motion artifact. No airspace consolidation or pleural effusion is identified. Bibasilar atelectasis is observed. The trachea and central airways are clear. Mediastinum: Minimal residual thymic tissue is suggested in the anterior mediastinum. There is no mediastinal lymphadenopathy. Carolann: Clear. Axillae: There is no axillary lymphadenopathy. Upper abdomen: There is a small hiatal hernia. Excreted contrast is present within the renal collecting system bilaterally. A 1.5 cm low-attenuation lesion in the right hepatic lobe is seen on image #75. This likely represents a hemangioma when correlated with today's abdominal CT. Skeletal structures: No lytic or blastic bony lesions are seen. IMPRESSION: 1. There is no evidence of pulmonary embolus in the main, lobar, or segmental pulmonary arteries. 2. There is no airspace consolidation or pleural effusion. 3. Mild cardiac enlargement. Electronically signed by: Ashish Aparicio M.D. 08/26/2017 8:43 AM Impression Assessment and Plan HYPOXIA * Patient may have a component of hypoventilation syndrome * On room air the patient dropped to 89-90% * Patient repositioned in bed and pulse oximeter placed on opposite hand with same results * No cough or sputum production * No fever * Continue on room air and check ABG at 1900 * Follow clinically FACTOR V LEIDEN DEFICIENCY * CTA negative for pulmonary embolus * No pleuritic chest pain * No prior anticoagulation * No asymmetrical edema of lower extremities * Follow clinically DVT PROPHYLAXIS * Enoxaparin * Ambulate as tolerated Thank you for including us in the care of this patient. We will continue to follow along with you. Please refer to Dr. Sarabia on those addendum for further recommendations. Physician Supervision Note: I was present with CLIFFORD Malagon during the history and exam. I discussed the case with him and agree with the findings and plan as documented in the note. Any exceptions or clarifications are listed here: Patient with muscular dystrophy, found to be hypoxic. During our examination, he was borderline hypoxic, asymptomatic. ABG shows mild compensated respiratory acidosis, secondary to hypoventilation Recommend nocturnal pules-oximetry tonight. He was diagnosed with BRANDYN 2 years ago, but did not wear CPAP. Would probably benefit from BIPAP therapy, but the pCO2 is not too elevated to qualify CT scan reviewed, no evidence of disease Documented By: Souleymane Sarabia MD
--- NOTE | 2017-08-26 20:35 | ECHOCARDIOGRAM REPORT ---
*NOTICE TO RECEIVING REPUBLICAN AGENCY This information is strictly Confidential and protected under [place] law. [place] law prohibits you from making any further disclosure of this information unless further disclosure is expressly permitted by the written consent of the person to whom it pertains or is authorized by law. A general authorization for the release of medical or other information is not sufficient for this purpose. Hospital accepts no responsibility if the information is made available to any other person, INCLUDING THE PATIENT. Interpretation Summary * Name: CLARE PEACE Study Date: 08/26/2017 01:59 PM BP: 122/78 mmHg * Patient Location: [facility]\S\N280\S\2 HR: 84 * : 1980 (M/d/yyyy) Gender: Male Height: 65 in * Age: 36 yrs Ethnicity: CA Weight: 140 lb * Ordering Physician: Ninfa Johnson * Referring Physician: Self, Referred * Performed By: Jud Rios RDCS * * Reason For Study: Hypoxia * BSA: 1.7 m2 * The study was technically adequate. * Normal left ventricular cavity size, myocardial thickness, wall motion, and systolic function. * -- Conclusions -- * The LV Ejection Fraction = 55-60%. * There is no significant valvular heart disease. Procedure Details * A complete two-dimensional transthoracic echocardiogram was performed (2D, M-mode, Doppler and color flow Doppler). Left Ventricle * The left ventricle is normal in size. * There is normal left ventricular wall thickness. * Left ventricular systolic function is normal. * Ejection Fraction = 55-60%. * The left ventricular wall motion is normal. Right Ventricle * The right ventricle is normal size. * The right ventricular systolic function is normal as assessed by tricuspid annular plane systolic excursion (TAPSE) (normal >1.5 cm). Atria * The left atrial size is normal. * Right atrial size is normal. * There is no evidence of atrial septal defect, but resolution does not allow assessment for a patent foramen ovale. Mitral Valve * The mitral valve is normal. * There is no mitral valve stenosis. * Significant mitral regurgitation is absent. Tricuspid Valve * The tricuspid valve is normal. * There is no tricuspid stenosis. * Significant tricuspid regurgitation is absent. Aortic Valve * The aortic valve is trileaflet. * Aortic stenosis is absent. * There is no significant aortic regurgitation. Pulmonic Valve * The pulmonary valve is not well seen, but the Doppler examination is normal without significant regurgitation or stenosis. Great Vessels * The aortic root and proximal ascending aorta are normal sized. Pericardium/Pleural * There is no pericardial effusion. Great Vessels * Normal inferior vena cava diameter and respiratory variation suggests normal central venous pressure. Left Ventricular Diastolic Function * The LV diastolic function is normal. MMode 2D Measurements and Calculations IVSd 0.93 cm IVSs 1.2 cm LVIDd 4.6 cm LVIDs 2.7 cm LVPWd 0.96 cm LVPWs 1.4 cm IVS/LVPW 0.96 FS 41.5 % EDV(Teich) 95.6 ml ESV(Teich) 26.3 ml EF(Teich) 72.5 % EDV(cubed) 95.1 ml ESV(cubed) 19.1 ml EF(cubed) 79.9 % % IVS thick 25.1 % % LVPW thick 46.8 % LV mass(C)d 145.1 grams LV mass(C)dI 85.3 grams/m\S\2 LV mass(C)s 104.7 grams LV mass(C)sI 61.6 grams/m\S\2 SV(Teich) 69.2 ml SI(Teich) 40.7 ml/m\S\2 SV(cubed) 76.0 ml SI(cubed) 44.7 ml/m\S\2 Ao root diam 3.2 cm Ao root area 7.9 cm\S\2 ACS 1.9 cm LA dimension 2.5 cm LA/Ao 0.80 LVAd ap4 25.9 cm\S\2 LVLd ap4 7.3 cm EDV(MOD-sp4) 78.8 ml EDV(sp4-el) 77.8 ml LVAs ap4 13.0 cm\S\2 LVLs ap4 6.4 cm ESV(MOD-sp4) 24.8 ml ESV(sp4-el) 22.6 ml EF(MOD-sp4) 68.5 % EF(sp4-el) 70.9 % LVAd ap2 27.3 cm\S\2 LVLd ap2 8.0 cm EDV(MOD-sp2) 85.0 ml EDV(sp2-el) 78.8 ml LVAs ap2 14.7 cm\S\2 LVLs ap2 6.6 cm ESV(MOD-sp2) 31.5 ml ESV(sp2-el) 28.0 ml EF(MOD-sp2) 62.9 % EF(sp2-el) 64.4 % LVLd %diff 8.9 % EDV(MOD-bp) 84.5 ml LVLs %diff 3.3 % ESV(MOD-bp) 27.5 ml EF(MOD-bp) 67.4 % SV(MOD-sp4) 54.0 ml SI(MOD-sp4) 31.8 ml/m\S\2 SV(MOD-sp2) 53.5 ml SI(MOD-sp2) 31.5 ml/m\S\2 SV(MOD-bp) 57.0 ml SI(MOD-bp) 33.5 ml/m\S\2 SV(sp4-el) 55.2 ml SI(sp4-el) 32.5 ml/m\S\2 SV(sp2-el) 50.8 ml SI(sp2-el) 29.9 ml/m\S\2 Doppler Measurements and Calculations MV E max darrel 56.2 cm/sec MV A max darrel 30.2 cm/sec MV E/A 1.9 MV dec time 0.21 sec Ao V2 max 93.1 cm/sec Ao max PG 3.5 mmHg Ao max PG (full) 0.32 mmHg LV V1 max PG 3.1 mmHg LV V1 max 88.7 cm/sec PA V2 max 75.1 cm/sec PA max PG 2.3 mmHg PI max darrel 146.7 cm/sec PI max PG 8.6 mmHg PI dec slope 107.2 cm/sec\S\2 PI P1/2t 400.7 msec
[2017-08-26] MEDS ORDERED: ENOXAPARIN 40 MG/0.4 ML SYR SC SCH (21:00)
[2017-08-26 23:46] VITALS: BP 110/75; PULSE 73; TEMP 36.6; O2SAT 95
[2017-08-27] VITALS (7 sets, daily range): BP systolic 94–108; BP diastolic 57–70; PULSE 43–69; TEMP 36.5–36.9; O2SAT 91–95
[2017-08-27 08:38] LABS: HEMATOCRIT 44.3 % (42-52); HEMOGLOBIN 14.9 g/dL (14.0-18.0); MEAN CELL VOLUME 93.5 fL (80-100); MEAN CORPUSCULAR HEMOGLOBIN 31.4 pg (25-34); MEAN CORPUSCULAR HGB CONC 33.6 g/dl (32-36); MEAN PLATELET VOLUME 11.1 fL (7.4-10.4); PLATELET COUNT 137 K/uL (130-400); RED CELL DISTRIBUTION WIDTH CV 14.2 % (11.5-14.5); RED CELL DISTRIBUTION WIDTH SD 48.5 fL (36.4-46.3); WHITE BLOOD COUNT 3.86 K/uL (4.8-10.8)
[2017-08-27] MEDS ORDERED: FLUOXETINE HCL 10 MG CAP PO SCH (09:00)
[2017-08-27] MEDS ORDERED: FLUOXETINE HCL 20 MG CAP PO SCH (09:00)
[2017-08-27] MEDS ORDERED: FEXOFENADINE HCL 180 MG TAB PO SCH (09:00)
[2017-08-27] MEDS ORDERED: MULTIVITAMIN TAB PO SCH (09:00)
[2017-08-27 09:06] LABS: ALBUMIN 3.6 gm/dl (3.4-5.0); CALCIUM 8.9 mg/dl (8.5-10.1); CREATININE 0.82 mg/dl (0.60-1.40); POTASSIUM 4.1 mmol/L (3.5-5.1); TOTAL PROTEIN 6.7 gm/dl (6.4-8.2)
--- NOTE | 2017-08-27 09:26 | DIAGNOSTIC IMAGING REPORT ---
CHEST 2 VIEWS ROUTINE CLINICAL HISTORY: 36 years-old Male presenting with hypoxia. TECHNIQUE: PA and lateral views of the chest were obtained. COMPARISON: 08/26/2017. FINDINGS: Cardiomediastinal silhouette normal. Lungs and pleural spaces clear. Osseous structures normal. Upper abdomen normal. IMPRESSION: 1. No acute cardiopulmonary disease. Electronically signed by: Esau Pedro M.D. 08/27/2017 9:25 AM Dictated Date/Time: 08/27/2017 9:23 AM
--- NOTE | 2017-08-27 15:13 | Progress Note ---
Medicine Progress Note Date & Time of Visit: Aug 27, 2017 at 15:08. Subjective seen resting in bed, comfortable states he feels better overall denies chest pain, dyspnea, cough, palpitations denies abdominal pain tolerating diet well states he is ready and would like to be discharged today no other symptoms Objective Last 8 Hrs Date Time Temp Pulse Resp B/P (MAP) Pulse Ox O2 Delivery O2 Flow Rate FiO2 08/27/17 12:09 36.5 69 16 108/69 (82) 95 Room Air 08/27/17 12:00 94 Room Air 08/27/17 08:06 36.5 43 18 94/57 (69) 91 08/27/17 08:00 94 Room Air Physical Exam: General- oriented x 3, not in distress, speaks in sentences with no effort Eyes- anicteric ENT- oropharynx clear Neck- supple, no JVD Lungs- clear to auscultation bilaterally Heart- regular rhythm; no murmur, normal rate Abdomen- normal bowel sounds, soft, nontender Extremities- no pretibial edema, no calf tenderness Neuro- alert, oriented x 3; no gross focal deficits Skin- warm & dry Laboratory Results: Last 24 Hours Test 08/26/17 19:06 08/27/17 08:07 Arterial Blood pH 7.41 Arterial Blood Partial Pressure CO2 45 mmHg Arterial Blood Partial Pressure O2 75 mm/Hg Arterial Blood HCO3 28 mmol/L Arterial Blood Oxygen Saturation 94.6 % Arterial Blood Base Excess 2.4 mEq/L Arterial Blood Gas Delivery 2L Griffin Test POS White Blood Count 3.86 K/uL Red Blood Count 4.74 M/uL Hemoglobin 14.9 g/dL Hematocrit 44.3 % Mean Corpuscular Volume 93.5 fL Mean Corpuscular Hemoglobin 31.4 pg Mean Corpuscular Hemoglobin Concent 33.6 g/dl RDW Standard Deviation 48.5 fL RDW Coefficient of Variation 14.2 % Platelet Count 137 K/uL Mean Platelet Volume 11.1 fL Sodium Level 142 mmol/L Potassium Level 4.1 mmol/L Chloride Level 109 mmol/L Carbon Dioxide Level 28 mmol/L Anion Gap 5.0 mmol/L Blood Urea Nitrogen 7 mg/dl Creatinine 0.82 mg/dl Est Creatinine Clear Calc Drug Dose 110.8 ml/min Estimated GFR () 133.7 Estimated GFR (Non- 115.4 BUN/Creatinine Ratio 8.8 Random Glucose 95 mg/dl Calcium Level 8.9 mg/dl Total Bilirubin 0.4 mg/dl Aspartate Amino Transf (AST/SGOT) 25 U/L Alanine Aminotransferase (ALT/SGPT) 61 U/L Alkaline Phosphatase 92 U/L Total Protein 6.7 gm/dl Albumin 3.6 gm/dl Globulin 3.1 gm/dl Albumin/Globulin Ratio 1.2 Assessment & Plan EPISODE OF HYPOXIA Pt presented to ER with abdominal pain, however found to have episode hypoxia, sats down to 68% on RA, increased to 98% on 2L NC. CTA chest: negative for PE or consolidation. Negative troponin. Pt with hx PFT in 05/2017: normal FEV1/FVC ratio, no obstructive ventilatory defect, normal lung capacity with no signs of restrictive lung disease, air trapping, or hyperventilation. hx videostroboscopic evaluation of larynx 07/2017 : Normal laryngeal function with pooled secretions in lateral hypopharynx and pyriform sinuses with none to endolarynx, no observed aspiration. Vocal cord mobility intact. -- CT angio: negative for PE, pneumonia, effusion -- consulted Pulmonary Dr. Cruz/Dr. Sarabia/DARBY [facility] Overnight Pulse Ox: negative -- likely from Hypoventilation from Anxiety, underlying Muscular Dystrophy patient on hospital day 2 was back to room air, O2 sats > 90, even with ambulation -- will need regular follow up with Pulmonary Clinic in [facility].- needs follow up PFTs ff up with Pulm in 2 weeks ANXIETY Pt with hx anxiety on fluoxetine Increased anxiety with the recent of his cat - Psych consulted: Dr. Sanchez recommend to increase Prozac to 20mg po daily and add Vistaril 25mg - ff up with with Psych provider as outpatient (Psych SV provided list of different facilities) ABDOMINAL PAIN CT abd: No evidence of bowel obstruction, free air, inflammatory changes, diverticulosis or appendicitis. Trace free fluid in the pelvis. 17 mm right lobe hepatic mass likely representing a hemangioma - resolved -consider MRI abd to further assess likely hemangioma MYOTONIC MUSCULAR DYSTROPHY Follows with Kenneth. No increased symptoms HX A-FLUTTER S/P ABLATION Sinus rhythm today -monitor ALLERGIC RHINITIS -continue freda DVT Prophylaxis -Lovenox Disposition d/c home ff up with PCP in 3-5 days ff up with Psych in 1 week ff up with [facility] in 1-2 weeks Current Inpatient Medications: Current Inpatient Medications Medications (Trade) Dose Ordered Sig/Miguel Route Start Time Stop Time Status Last Admin Dose Admin Ioversol (Optiray 320) 111 ml UD PRN IV 08/26/17 06:30 08/30/17 06:29 Ioversol (Optiray 320) 100 ml UD PRN IV 08/26/17 08:00 08/30/17 07:59 Enoxaparin Sodium (Lovenox Inj) 40 mg Q24H SC 08/26/17 21:00 09/25/17 20:59 Acetaminophen (Tylenol Tab) 650 mg Q4H PRN PO 08/26/17 10:45 09/25/17 10:44 Ondansetron HCl (Zofran Inj) 4 mg Q6H PRN IV 08/26/17 10:45 09/25/17 10:44 Polyethylene (Miralax Powder Packet) 17 gm DAILY PRN PO 08/26/17 10:45 09/25/17 10:44 Fexofenadine HCl (Freda Tab) 180 mg QAM PO 08/27/17 09:00 09/26/17 08:59 08/27/17 08:24 180 MG Lorazepam (Ativan Inj) 0.5 mg Q6 PRN IV 08/26/17 11:15 09/25/17 11:14 Lorazepam 0.5 mg/ Syringe 1 ml @ 1 mls/min Q6H PRN IV 08/26/17 12:00 09/25/17 11:59 Fluoxetine HCl (Prozac Cap) 20 mg QAM PO 08/27/17 09:00 09/26/17 08:59 08/27/17 08:23 20 MG Hydroxyzine HCl (Vistaril Tab) 25 mg Q4 PRN PO 08/26/17 13:30 09/25/17 13:29 08/26/17 23:59 25 MG
[2017-08-27] MEDS ORDERED: ATR25 PO (15:32)
[2017-08-27] MEDS ORDERED: FLUO20CA36 PO (15:32)
--- NOTE | 2017-08-27 15:34 | PULMONARY CONSULTATION ---
DATE OF CONSULTATION: 08/27/2017 CHIEF COMPLAINT: Hypoxemia. HISTORY OF PRESENT ILLNESS: A 36-year-old with myotonic dystrophy, presented with abdominal pain and hypoxemia. The patient's primary care physician is Dr. Jose Engel. He does have a history of myotonic dystrophy as did several family members, one of who I cared for in the past. He came to the Emergency Room with vague abdominal pain and was found to be desaturated in the high 70 to low 80 percentile range, he showed improvement in the mid 90s. In the first 24 hours, the patient's nasal cannula with O2 supplementation was discontinued. Currently, he feels well and no abdominal pain and feels the entire situation was triggered by anxiety. He does have a Factor V Leiden mutation history. Though, no obvious evidence for pulmonary thromboembolic disease. CT angiogram done yesterday showed no evidence of pulmonary thromboembolic disease. Mild cardiac enlargement was noted. Echocardiogram read by Dr. Love did not suggest right ventricular enlargement dilatation or significant tricuspid regurgitation, though the pulmonic valve was not well visualized. No obvious overt signs of pulmonary hypertension. According to the patient's mother, pulmonary function testing has been done at Dr. Engel' office at the [facility] is not available currently to us. PHYSICAL EXAMINATION: VITAL SIGNS: Currently, temperature 36.5, pulse 69 and regular, respiratory rate 16, blood pressure 108/69, 95% sat on room air. SKIN: Warm and dry. HEENT: Atraumatic, normocephalic. PERRLA. LUNGS: Clear to P&A. CARDIAC: Regular rate and rhythm. No murmurs or gallops. PMI nondisplaced. ABDOMEN: Soft, scaphoid. No evidence of hepatosplenomegaly. EXTREMITIES: No pedal edema or clubbing or cyanosis. NEUROLOGIC: Intact. No lateralizing signs. LABORATORY DATA: ABGs - pH 7.41, pCO2 of 45, pO2 of 75 on room air. White count 3800, H&H 14 and 44. OVERALL ASSESSMENT: A 36-year-old with a history of myotonic dystrophy, admitted with vague abdominal pain and hypoxemia, both of which have improved. I do think the patient although has well compensated blood gases, does have some mild CO2 retention, which was suggested a degree of chronic alveolar hypoventilation and given his underlying disease is prone to developing cardiopulmonary difficulties with failure in the future. I think he should be followed by a local industrial machine assembler on a q. 6-12 month basis with periodic and serial pulmonary function testing and blood gas testing when needed.
--- NOTE | 2017-08-27 15:36 | Discharge Instructions ---
Discharge Instructions Date of Service Aug 27, 2017. Admission Reason for Admission: Abdominal Pain, Hypoxia Discharge Discharge Diagnosis / Problem: EPISODE OF HYPOXIA Discharge Goals Goal(s): Diagnostic testing, Therapeutic intervention Activity Recommendations Activity Limitations: as noted below (INCREASE ACTIVITY GRADUALLY TOLERATED) Lifting Limitations: until after follow-up appointment Exercise/Sports Limitations: until after follow-up appointment Driving or Machine Use: . Instructions / Follow-Up Instructions / Follow-Up PLEASE REVIEW YOUR NEW MEDICATION LIST AND FOLLOW INSTRUCTIONS CAREFULLY. CALL YOUR PRIMARY CARE PHYSICIAN OR RETURN TO ER IMMEDIATELY IF WITH RECURRENCE OF SYMPTOMS. FOLLOW UP WITH DR. COLLADO ON Tuesday08/31/17 AT 3:00PM. FOLLOW UP WITH PSYCHIATRY SERVICE IN [address] FOLLOW UP WITH DR. HARRIS[facility] IN 1 -2 WEEKS. TEL NO. Current Hospital Diet Patient's current hospital diet: Regular Diet Discharge Diet Recommended Diet: Regular Diet Procedures Procedures Performed: OVERNIGHT PULSE OXIMETRY, CT SCAN OF THE CHEST Pending Studies Studies pending at discharge: no Medical Emergencies . Who to Call and When: Medical Emergencies: If at any time you feel your situation is an emergency, please call 911 immediately. . Non-Emergent Contact Non-Emergency issues call your: Primary Care Provider, Specialist Call Non-Emergent contact if: you have a fever, your pain is not controlled, your pain is worsening, you have any medication questions . . "Provider Documentation" section prepared by [facility]. . VTE Core Measure Inpt VTE Proph given/why not?: Enoxaparin (Lovenox)SQ
--- NOTE | 2017-08-27 16:18 | Discharge Summary ---
Discharge Summary Date of Service Aug 27, 2017. Discharge Summary Admission Date: Aug 26, 2017 at 10:40 Discharge Date: Aug 27, 2017 Discharge Disposition: Home Principal Diagnosis: EPISODE OF HYPOXIA, LIKELY FROM HYPOVENTILATION, SECONDARY TO ANXIETY, UNDERLYING MUSCULAR DYSTROPHY Secondary Diagnoses/Problems: Please refer to hospital course below. Procedures: CT ABD/PELVIS IV CONTRAST ONLY CLINICAL HISTORY: Lower abdominal pain and vomiting COMPARISON STUDY: March 13, 2016 TECHNIQUE: Following the IV administration of 119 mL of Optiray-320, CT scan of the abdomen and pelvis was performed from the lung bases to the proximal femurs. Images are reviewed in the axial, sagittal, and coronal planes. IV contrast was administered without complication. A dose lowering technique was utilized adhering to the principles of ALARA. CT DOSE: 277.42 mGy.cm FINDINGS: Lower chest: There are minor atelectatic changes present the lung bases Liver: There is a 17 mm right lobe hepatic nodule demonstrating peripheral nodular enhancement. This may represent a hemangioma. This was present in 2013. Gallbladder: Unremarkable. Spleen: Normal in size and attenuation. Pancreas: Unremarkable. Adrenal glands: Unremarkable. Kidneys: There are left renal cortical cysts. The largest measures 9 mm. No solid renal masses are visualized. Bowel: There are no transition zones indicate bowel obstruction. There is no evidence of acute diverticulitis. There are no findings to indicate acute appendicitis. A fat-containing ringlike opacity within the left lower quadrant, likely represents an area of prior fat necrosis/epiploic appendigitis. Peritoneum: There is trace free fluid in the pelvis. No free intraperitoneal air is visualized Vasculature: The abdominal aorta is normal in course and caliber. Adenopathy: None. Pelvic viscera: The bladder, and pelvic viscera are unremarkable. Skeletal structures: No destructive osseous lesions are seen. IMPRESSION: 1. No evidence of bowel obstruction. No evidence of free air 2. No acute inflammatory changes. No evidence of acute diverticulitis. No evidence of acute appendicitis. 3. Trace free fluid in the pelvis 4. 17 mm right lobe hepatic mass likely representing a hemangioma CT ANGIOGRAM OF THE CHEST CLINICAL HISTORY: Hypoxia. COMPARISON STUDY: Chest x-ray dated 08/26/2017. Abdominal CT dated 08/26/2017. TECHNIQUE: Following the IV administration of 80 cc of Optiray 320, CT angiogram of the chest was performed from the upper abdomen to the thoracic inlet utilizing the pulmonary embolus protocol. Images are reviewed in the axial, sagittal, and coronal planes. 3-D MIPS images are created and assessed. IV contrast was administered without complication. A dose lowering technique was utilized adhering to the principles of ALARA. CT DOSE: 321.87 mGycm FINDINGS: Thyroid: Imaged portions of the thyroid gland are normal in size and attenuation. Thoracic aorta: The thoracic aorta is normal in caliber and demonstrates standard 3-vessel arch anatomy. No dissection is seen. Pulmonary vasculature: The pulmonary trunk is normal in caliber. There are no filling defects identified in main, lobar, or segmental pulmonary branches to suggest pulmonary embolus. Heart: The heart is mildly enlarged and without pericardial effusion. Lungs and pleural spaces: Evaluation the lung parenchyma is modestly degraded by motion artifact. No airspace consolidation or pleural effusion is identified. Bibasilar atelectasis is observed. The trachea and central airways are clear. Mediastinum: Minimal residual thymic tissue is suggested in the anterior mediastinum. There is no mediastinal lymphadenopathy. Carolann: Clear. Axillae: There is no axillary lymphadenopathy. Upper abdomen: There is a small hiatal hernia. Excreted contrast is present within the renal collecting system bilaterally. A 1.5 cm low-attenuation lesion in the right hepatic lobe is seen on image #75. This likely represents a hemangioma when correlated with today's abdominal CT. Skeletal structures: No lytic or blastic bony lesions are seen. IMPRESSION: 1. There is no evidence of pulmonary embolus in the main, lobar, or segmental pulmonary arteries. 2. There is no airspace consolidation or pleural effusion. 3. Mild cardiac enlargement. CHEST 2 VIEWS ROUTINE CLINICAL HISTORY: 36 years-old Male presenting with hypoxia. TECHNIQUE: PA and lateral views of the chest were obtained. COMPARISON: 08/26/2017. FINDINGS: Cardiomediastinal silhouette normal. Lungs and pleural spaces clear. Osseous structures normal. Upper abdomen normal. IMPRESSION: 1. No acute cardiopulmonary disease. ECHO: * The study was technically adequate. * Normal left ventricular cavity size, myocardial thickness, wall motion, and systolic function. * -- Conclusions -- * The LV Ejection Fraction = 55-60%. * There is no significant valvular heart disease. Consultations: PULMONARY Dr. Harris Pending Studies/Follow-Up: Please refer to hospital course below. Medication Reconciliation New Medications: Fluoxetine HCl (Fluoxetine HCl) 20 Mg Cap 20 MG PO QAM for 10 Days, #10 CAP 0 Refills Hydroxyzine HCl (Hydroxyzine HCl) 25 Mg Tab 25 MG PO Q4 PRN for Anxiety/Agitation for 7 Days, #10 TAB 0 Refills Continued Medications: Fexofenadine Hcl (Freda Allergy) 180 Mg Tab 180 MG PO QAM Multiple Vitamin (Multi Vitamin) 1 Tab Tab 1 TAB PO DAILY Discontinued Medications: Fluoxetine (Prozac) 10 Mg Cap 10 MG PO QAM, CAP Admission Information HPI (per Admitting provider): Pt is 36 y/o M with PMH myotonic muscular dystrophy, anxiety, allergic rhinitis , a-flutter s/p ablation presented to ER with c/o abdominal pain. Pt very upset and anxious about the loss of his cat which occurred this week. He c/o mid abdominal discomfort. He admits hasn't been eating and drinking much as he doesn 't have an appetite and when he tries to eat, he becomes nauseated and dry heaves. States has vomited a couple of times but has been mostly bile. No prior treatment at home. Denies hx abdominal surgeries. Pt's mother with him in exam room and she reports she takes care of his medical care. Pt with hx anxiety and is on fluoxetine daily which she reports helps, however when major life events occur, he has increased anxiety. She reports his typical symptoms are crying, very anxious, abdominal pain, nausea, vomiting. States symptoms past couple days are his typical symptoms. In past pt seen psychologist, however hasn't for awhile. Mother reports pt has issues with hospitals and that makes him more anxious also as he had loss of his father a couple of years ago and mother states that pt fixates on that when in a hospital also. Mother reports pt had URI symptoms previously that had resolved. He was having some globus sensation which she reports had video done to evaluate. Pt denies recent choking and he doesn't feel he has globus sensation at this time. He reports being able to swallow liquid and solids well, but bread or dry potatoes sometimes feel like "stick in throat". States pt has some SOB with climbing 2 flights of stairs. Denies fever/chills, diaphoresis, diarrhea, constipation, melena, hematochezia, UGALDE, dizziness, syncope, vision changes, neck pain, CP, increased SOB, orthopnea , palpitations, cough, sore throat, otalgia, rhinorrhea, paresthesias, extremity edema, rashes, urinary symptoms. Denies suicidal/homicidal ideations. In ER pt given Zofran, he denied pain medicine. Negative abdominal workup, however noted pt had episode of hypoxia sats down to 68% on RA. Pt placed on O2 2L NC and sats up to 98%. Pt denies any further abdominal pain. Pt with hx PFT 05/2017: showing normal FEV1/FVC ratio, no obstructive ventilatory defect, normal lung capacity with no signs of restrictive lung disease, air trapping, or hyperventilation. Mother reports pt had a sleep study, and was told he might need supplemental oxygen by CPAP, but it wasn't necessary. Pt with hx videostroboscopic evaluation of larynx 07/2017 for dysphagia to bread and dry potatoes. Results: Normal laryngeal function with pooled secretions in lateral hypopharynx and pyriform sinuses with none to endolarynx, no observed aspiration. Vocal cord mobility intact. recommended speech therapy evaluation Physical Exam (per Admitting): General Appearance: + thin, + pertinent finding (Pt tearful and crying and hyperventilating, is able to be redirected to focus on gentle, slow breathing. Mother at bedside and reassures pt) Head: normocephalic, atraumatic Eyes: normal inspection, PERRL, EOMI, sclerae normal ENT: hearing grossly normal, pharynx normal, + pertinent finding (mucous membranes mildly dry) Neck: supple, no JVD, trachea midline Respiratory/Chest: lungs clear, normal breath sounds, no respiratory distress, no accessory muscle use Cardiovascular: regular rate, rhythm, no murmur Abdomen/GI: normal bowel sounds, non tender, soft Back: no CVA tenderness Extremities/Musculoskelatal: no calf tenderness, normal capillary refill, no pedal edema, non-tender Neurologic/Psych: alert, oriented x 3, + pertinent finding (anxious, crying) Skin: normal color, warm/dry Hospital Course EPISODE OF HYPOXIA, LIKELY FROM HYPOVENTILATION, SECONDARY TO ANXIETY, UNDERLYING MUSCULAR DYSTROPHY Pt presented to ER with abdominal pain, however found to have episode hypoxia, sats down to 68% on RA, increased to 98% on 2L NC. CTA chest: negative for PE or consolidation. Negative troponin. Pt with hx PFT in 05/2017: normal FEV1/FVC ratio, no obstructive ventilatory defect, normal lung capacity with no signs of restrictive lung disease, air trapping, or hyperventilation. hx videostroboscopic evaluation of larynx 07/2017 : Normal laryngeal function with pooled secretions in lateral hypopharynx and pyriform sinuses with none to endolarynx, no observed aspiration. Vocal cord mobility intact. -- CT angio: negative for PE, pneumonia, effusion -- consulted Pulmonary Dr. Harris/Dr. Sarabia/DARBY Medina Overnight Pulse Ox: negative -- likely from Hypoventilation from Anxiety, underlying Muscular Dystrophy patient on hospital day 2 was back to room air, O2 sats > 90, even with ambulation -- will need regular follow up with Pulmonary Clinic in [facility].- needs follow up PFTs given underlying Muscular Dystrophy ff up with Pulm in 2 weeks ANXIETY Pt with hx anxiety on fluoxetine Increased anxiety with the recent of his cat - Psych consulted: Dr. Sanchez recommend to increase Prozac to 20mg po daily and add Vistaril 25mg - close ff up with with Psych provider as outpatient (Psych [facility] [place] provided list of different facilities) ABDOMINAL PAIN CT abd: No evidence of bowel obstruction, free air, inflammatory changes, diverticulosis or appendicitis. Trace free fluid in the pelvis. 17 mm right lobe hepatic mass likely representing a hemangioma - resolved -consider MRI abd to further assess likely hemangioma MYOTONIC MUSCULAR DYSTROPHY Follows with Angelita A-FLUTTER S/P ABLATION Sinus rhythm -monitor ALLERGIC RHINITIS -continue freda Disposition d/c home ff up with PCP in 3-5 days ff up with Psych in 1 week ff up with [facility] in 1-2 weeks Total time spent on discharge = 35 minutes This includes examination of the patient, discharge planning, medication reconciliation, and communication with other providers. Discharge Instructions Discharge Instructions Date of Service Aug 27, 2017. Admission Reason for Admission: Abdominal Pain, Hypoxia Discharge Discharge Diagnosis / Problem: EPISODE OF HYPOXIA Discharge Goals Goal(s): Diagnostic testing, Therapeutic intervention Activity Recommendations Activity Limitations: as noted below (INCREASE ACTIVITY GRADUALLY TOLERATED) Lifting Limitations: until after follow-up appointment Exercise/Sports Limitations: until after follow-up appointment Driving or Machine Use: . Instructions / Follow-Up Instructions / Follow-Up PLEASE REVIEW YOUR NEW MEDICATION LIST AND FOLLOW INSTRUCTIONS CAREFULLY. CALL YOUR PRIMARY CARE PHYSICIAN OR RETURN TO ER IMMEDIATELY IF WITH RECURRENCE OF SYMPTOMS. FOLLOW UP WITH DR. COLLADO ON Tuesday08/31/17 AT 3:00PM. FOLLOW UP WITH PSYCHIATRY SERVICE IN [address] FOLLOW UP WITH DR. HARRIS- PULMONARY CLINIC , [facility] IN 1 -2 WEEKS. TEL NO. Current Hospital Diet Patient's current hospital diet: Regular Diet Discharge Diet Recommended Diet: Regular Diet Procedures Procedures Performed: OVERNIGHT PULSE OXIMETRY, CT SCAN OF THE CHEST Pending Studies Studies pending at discharge: no
== END 2017-08-27 17:05 | disposition home or self-care (01) | DRG 206 ==
LOC: C.EDB 03:50 → C.MED 10:40 → ENRESERV 11:00
PROVIDERS: ADMIT Internal Medicine; ATTEND Internal Medicine
DX: R09.02 Hypoxemia (principal); I48.92 Unspecified atrial flutter; D68.2 Hereditary deficiency of other clotting factors; R06.89 Other abnormalities of breathing; R10.9 Unspecified abdominal pain; G71.11 Myotonic muscular dystrophy; F41.9 Anxiety disorder, unspecified; Z88.2 Allergy status to sulfonamides; J30.9 Allergic rhinitis, unspecified; Z80.9 Family history of malignant neoplasm, unspecified; Z88.1 Allergy status to other antibiotic agents

== ENCOUNTER 2019-06-27 19:06 | Inpatient (IN) ==
[2019-06-27] MEDS ORDERED: fentaNYL citrate 100 MCG/2 ML VIAL IV PRN (19:26)
[2019-06-27] MEDS ORDERED: ONDANSETRON INJ 2 MG/ML 2 ML VIAL IV STA (19:26)
[2019-06-27] MEDS ORDERED: SODIUM CHLORIDE 0.9% 500 ML IV SCH (19:30)
[2019-06-27 19:59] LABS: Basophils # (auto) 0.01 K/uL (0-0.2); Basophils % (auto) 0.2 %; Eosinophils # (auto) 0.19 K/uL (0-0.5); Eosinophils % (auto) 4.3 %; Hematocrit (blood only) 37.5 % (42-52); Hemoglobin 12.5 g/dL (14.0-18.0); Immature Granulocytes # (auto) 0.01 K/uL (0.00-0.02); Immature Granulocytes % (auto) 0.2 %; Lymphocytes # (auto) 0.89 K/uL (1.2-3.4); Mean Corpuscular Hemoglobin 31.8 pg (25-34); Mean Corpuscular Hgb Conc 33.3 g/dL (32-36); Mean Corpuscular Volume 95.4 fL (80-100); Mean Platelet Volume 10.1 fL (7.4-10.4); Monocytes # (auto) 0.49 K/uL (0.11-0.59); Neutrophils # (auto) 2.86 K/uL (1.4-6.5); Neutrophils % (auto) 64.3 %; Platelet Count 304 K/uL (130-400); RDW Coefficient of Variation 13.9 % (11.5-14.5); Red Blood Count 3.93 M/uL (4.7-6.1); White Blood Count 4.45 K/uL (4.8-10.8)
[2019-06-27 20:01] LABS: iSTAT Creatinine 0.8 mg/dl (0.6-1.3); iSTAT Hemoglobin 11.6 g/dl (14.0-18.0); iSTAT Ionized Calcium 1.21 mmol/l (1.12-1.32); iSTAT Potassium 4.4 mEq/L (3.3-5.0)
[2019-06-27] MEDS ORDERED: OPTIRAY 320 125ml IV PRN (20:01)
[2019-06-27 20:08] LABS: INR 1.1 (0.9-1.1); Partial Thromboplastin Ratio 0.9; Partial Thromboplastin Time 25.3 Seconds (21.0-31.0); Prothrombin Time 11.5 Seconds (9.0-12.0)
[2019-06-27 20:20] LABS: Alanine Aminotransferase 38 U/L (12-78); Albumin Level 2.9 gm/dl (3.4-5.0); Aspartate Aminotransferase 22 U/L (15-37); Blood Urea Nitrogen 15 mg/dl (7-18); Calcium 9.8 mg/dl (8.5-10.1); Carbon Dioxide 26 mmol/L (21-32); Chloride 111 mmol/L (98-107); Creatinine Clr Calc Pharmacy 105.6 ml/min; Est GFR (African American) 132.5; Est GFR (Non-African American) 114.3; Glucose 91 mg/dl (70-99); Lipase 247 U/L (73-393); Potassium 4.4 mmol/L (3.5-5.1); Sodium 144 mmol/L (136-145)
[2019-06-27 20:25] LABS: Albumin Globulin Ratio 0.7 (0.9-2); Alkaline Phosphatase 110 U/L (45-117); Bilirubin,Total 0.3 mg/dl (0.2-1); Creatine Kinase 58 U/L (39-308); Creatine Kinase MB < 1.0 ng/ml (0.5-3.6); Total Protein 6.9 gm/dl (6.4-8.2); Troponin I < 0.015 ng/ml (0-0.045)
--- NOTE | 2019-06-27 20:29 | CT Scan Report ---
CHEST CTA for PULMONARY ARTERIES CT DOSE: 279.99 mGy.cm HISTORY: Atypical Chest Pain, eval for PE TECHNIQUE: Multiaxial CT images of the chest were performed following the intravenous administration of contrast to evaluate the pulmonary arteries. Maximal intensity projection images were also obtaine d. A dose lowering technique was utilized adhering to the principles of ALARA. COMPARISON STUDY: Chest CTA 08/26/2017. FINDINGS: Normal caliber thoracic aorta with no evidence for dissection. The heart is mildly enlarged . There is evidence for right-sided heart strain. Multiple bilateral pulmonary emboli, right greater than left. This includes a large thrombus within the distal right main pulmonary artery. Some of the emboli are nonocclusive and have a linear configuration. Therefore, this could represent an acute on chronic pulmonary emboli. Small right and trace left pleural effusions. Normal esophagus. Questionabl e abnormal soft tissue along the superior border of the distal right mainstem bronchus. However, this could represent the actual thrombus itself. This is best seen on image 149. This abuts the anterior border of the right mainstem bronchus and measures 2.3 x 1.5 cm. The visualized liver, spleen, and ad renal glands unremarkable. No suspicious lytic or blastic osseous lesions. Old, healed right-sided cl avicle fracture. Bibasilar linear densities favor subsegmental atelectasis. Right apical posterior no dular density measures 1 cm on image 203. This appears to represent fluid within the major fissure. P atchy peripheral areas of consolidation within the right upper lobe likely representing pulmonary inf arcts. There is also a focal wedge-shaped consolidation within the lingula suggesting a pulmonary inf arct. The central airways are patent. No pneumothorax. IMPRESSION: 1. Multiple bilateral pulmonary emboli, right greater than left. This includes a large thrombus withi n the distal right main pulmonary artery. Some of the emboli are nonocclusive and have a linear confi guration. Therefore, this could represent an acute on chronic pulmonary emboli. There is associated r ight-sided heart strain. 2. Small right and trace left pleural effusions. 3. Questionable abnormal soft tissue along the superior border of the distal right mainstem bronchus. However, this could represent the actual thrombus itself. [address] follow-up is recommended to ensure resolution of this possible abnormality. 4. Focal wedge-shaped areas of consolidation within the right upper lobe and lingula consistent with pulmonary infarcts. Electronically signed by: Royer Covarrubias M.D. 06/27/2019 8:27 PM
[2019-06-27] MEDS ORDERED: HEPARIN SOD 5,000 UNIT/0.5 ML VIAL ONE (20:40)
[2019-06-27] MEDS: HEPARIN SODIUM/DEXTROSE 25,000 UNITS/500 ML BAG IV SCH (20:44)
--- NOTE | 2019-06-27 21:48 | Emergency Department Note ---
Entered by Micki Amaro acting as a scribe for Clay Falcon DO History of Present Illness General Chief complaint: Pain (Generalized) Stated complaint: PAIN, OVERALL NOT FELLING WELL Time Seen by Provider: 06/27/19 19:18 Source: patient History of Present Illness Onset (ago): week(s) 1 Location: left (leg) Radiation: back Severity: similar to prior episodes Pain Consistency: + other (persistent) Maximum Pain Intensity: 10 Quality: + other (throbbing) Relieved By: not by medication (Ibuprofen) Exacerbated By: + movement Associated symptoms: + chest pain, + headaches and + other (Left leg pain, blood clot); no shortness of breath The patient is a 38 year old male presenting to the Emergency Department complaining of persistent leg pain starting 1 week ago. The patient reports that his left leg hurts. He describes this as a throbbing pain. He states that he cant walk because of this pain and that when he does try to walk it worsens his pain. He explains that he sometimes experienced right-sided chest pain that radiates to his back. He notes that he was diagnosed with a blood clot in his left leg at [facility] about a week ago. He adds that he has been taking Eliquis for his blood clot for 8 days now. The patient reports that he initially went to [facility] for headaches and that he still is experiencing headaches but that they are better. He states that he has been taking Ibuprofen for his symptoms that have not been helping his pain. The patient denies shortness of breath. Home Medications Home Medications Medication Instructions Recorded Confirmed Type apixaban [Eliquis] 5 mg PO QAM 06/27/19 06/27/19 History fexofenadine [Josee Allergy] 180 mg PO HS 06/27/19 06/27/19 History fluoxetine 10 mg PO QAM 06/27/19 06/27/19 History lorazepam 0.5 mg PO BID PRN 06/27/19 06/27/19 History ondansetron HCl 4 mg PO Q6H PRN 06/27/19 06/27/19 History Allergies Allergy/AdvReac Type Severity Reaction Status Date / Time Bactrim Allergy Mild HIVES Unverified 08/26/17 06:52 sulfamethoxazole Allergy Mild HIVES Verified 12/11/19 21:22 trimethoprim Allergy Mild HIVES Verified 06/27/19 21:22 azithromycin Allergy MADE HIM Verified 06/27/19 21:22 FEEL SICKER THAN HE WAS Past Med/Surg History Medical History Anxiety (Chronic) Atrial flutter (Chronic) "s/p ablation" Factor V Leiden (Chronic) History of blood clots Myotonic muscular dystrophy (Chronic) Social History Feels Safe at Home: Yes Smoking Status: Never smoker Review of Systems See HPI for pertinent positives & negatives. and A total of 10 systems reviewed and were otherwise negative Physical Exam Vital Signs Vital Signs - 24 hr 06/27/19 19:09 06/27/19 19:54 06/27/19 20:10 Temperature 36.3 C L Temperature Source Oral Pulse Rate 93 H 62 60 Pulse Rate from SpO2 Sensor 59 L Respiratory Rate 18 22 19 Blood Pressure 102/70 93/61 L 110/64 Blood Pressure Mean 80 65 77 Blood Pressure Position Sitting Pulse Oximetry 94 92 Oxygen Delivery Method Oxygen Flow Rate Sepsis Recent Fever Within 48 Hours No Sepsis New/Unexplained Change in Mental Status No Sepsis Action Taken by Nursing No Action Required Oxygen Flow Rate - Titration Pulse Oximetry Post Tiitration 06/27/19 20:30 06/27/19 21:00 06/27/19 21:51 Temperature Temperature Source Pulse Rate 62 64 90 Pulse Rate from SpO2 Sensor 64 66 88 Respiratory Rate 26 H 21 20 Blood Pressure 112/81 117/82 96/81 L Blood Pressure Mean 89 104 85 Blood Pressure Position Pulse Oximetry 94 94 96 Oxygen Delivery Method Nasal Cannula Oxygen Flow Rate 2 Sepsis Recent Fever Within 48 Hours Sepsis New/Unexplained Change in Mental Status Sepsis Action Taken by Nursing Oxygen Flow Rate - Titration 2 Pulse Oximetry Post Tiitration 94 06/27/19 22:00 Temperature Temperature Source Pulse Rate 73 Pulse Rate from SpO2 Sensor 77 Respiratory Rate 19 Blood Pressure 123/81 Blood Pressure Mean 91 Blood Pressure Position Pulse Oximetry 93 Oxygen Delivery Method Oxygen Flow Rate Sepsis Recent Fever Within 48 Hours Sepsis New/Unexplained Change in Mental Status Sepsis Action Taken by Nursing Oxygen Flow Rate - Titration Pulse Oximetry Post Tiitration GENERAL: Patient is awake, alert, and in no acute distress.Patient is resting comfortably and showing no signs of anxiety EYES: The conjunctivae are clear. The pupils are round and reactive. EARS, NOSE, MOUTH AND THROAT: The nose is without any evidence of any deformity. Mucous membranes are moist.Tongue is midline NECK: The neck is nontender and supple. RESPIRATORY: Normal respiratory effort is noted. Diminished breath sounds are noted at the right base. CARDIOVASCULAR: Regular rate and rhythm noted. There no murmurs rubs or gallops normal S1 normal S2 GASTROINTESTINAL: The abdomen is mildly distended but soft. There is no tenderness guarding or rigidity noted. MUSCULOSKELETAL/EXTREMITIES: There is no evidence of gross deformity. Full range of motion is noted in the hips and shoulders. SKIN: There is no obvious evidence of any rash. Pedal edema was noted left greater than right. There is left-sided calf tenderness. Skin is warm and dry. Pulses are symmetric in both feet. NEUROLOGIC: Patient is awake alert and oriented x3. Patellar tendon reflexes are 2+ bilaterally. Course Course 1920: The patient was evaluated in room A3, and a complete history and physical examination were performed. 2028: I updated the patient and his mother on the patients imagining. 2036: I discussed the patients case with Dr. Kirby Wood hospitalist. He will evaluate the patient for further management. 2044: I updated the patient and his mother at this time. Administered Medications Fentanyl Citrate (Fentanyl Citrate) 50 mcg IV Q15M PRN PRN Reason: Pain Stop: 07/11/19 19:25 Last Admin: 06/27/19 19:48 Dose: 50 mcg Documented by: [id number] Heparin Sodium/Dextrose (Heparin Sodium/Dextrose) 25,000 units in 500 mls @ 22 mls/hr IV .[id number] [facility]; Protocol Stop: 07/27/19 20:44 Last Admin: 06/27/19 20:44 Dose: 1,100 units/hr, 22 mls/hr Documented by: [id number] Cosigned by: [id number] Ioversol (Optiray 320 125ml) 117 ml IV ONCE PRN PRN Reason: Interaction Checking Stop: 07/01/19 20:00 Last Admin: 06/27/19 20:02 Dose: 117 ml Documented by: [id number] Discontinued Medications Heparin Sodium (Porcine) (Heparin Sodium (Porcine)) Confirm Administered Dose 5,000 units .ROUTE .[facility] Stop: 06/27/19 20:41 Last Admin: 06/27/19 20:44 Dose: 5,000 units Documented by: [id number] Cosigned by: [id number] Heparin Sodium/Dextrose () 1 ea IV NOW STA; Protocol Stop: 06/27/19 20:32 Last Admin: 06/27/19 20:44 Dose: 1 ea Documented by: [id number] Sodium Chloride (Nss) 500 mls @ 999 mls/hr IV .Q31M [facility]AROL Stop: 06/27/19 20:00 Last Infusion: 06/27/19 20:44 Dose: 0 mls/hr Documented by: [id number] Admin: 06/27/19 19:55 Dose: 999 mls/hr Documented by: [id number] Ondansetron HCl (Zofran) 4 mg IV NOW STA Stop: 06/27/19 19:27 Last Admin: 06/27/19 19:47 Dose: 4 mg Documented by: [id number] Critical Care Time Critical Care Time: Yes Total Critical Care Time: 60 I have personally spent 60 minutes of critical care time in the direct management of this patient. This includes bedside care, interpretation of diagnostic studies, and testing, discussion with consultants, patient, and family members, and other required patient management activities. This 60 minute s is in excess of all separately billable procedures. Medical Decision Making Differential Diagnosis Differential diagnoses includes but is not limited to pneumonia, bronchitis, COPD/Asthma exacerbation, pneumothorax, pulmonary embolism, congestive heart failure, acute coronary syndrome Medical Records Attestation: I reviewed the patient's medical records. Home Medications Current Medication List: was personally reviewed by in Laboratory Data Attestation: I reviewed the patient's lab results. Result diagrams: 06/27/19 19:40 06/27/19 19:40 Lab Results 06/27/19 06/27/19 06/27/19 Range/Units 19:40 19:40 19:40 WBC 4.45 L (4.8-10.8) K/uL RBC 3.93 L (4.7-6.1) M/uL Hgb 12.5 L (14.0-18.0) g/dL POC Hgb (14.0-18.0) g/dl Hct 37.5 L (42-52) % POC Hct (42-52) % MCV 95.4 (80-100) fL MCH 31.8 (25-34) pg MCHC 33.3 (32-36) g/dL RDW Std Deviation 48.0 H (36.4-46.3) fL RDW Coeff of Alondra 13.9 (11.5-14.5) % Plt Count 304 (130-400) K/uL MPV 10.1 (7.4-10.4) fL Immature Gran % (Auto) 0.2 % Neut % (Auto) 64.3 % Lymph % (Auto) 20.0 % [place] % (Auto) 11.0 % Eos % (Auto) 4.3 % Baso % (Auto) 0.2 % Immature Gran # (Auto) 0.01 (0.00-0.02) K/uL Neut # (Auto) 2.86 (1.4-6.5) K/uL Lymph # (Auto) 0.89 L (1.2-3.4) K/uL [place] # (Auto) 0.49 (0.11-0.59) K/uL Eos # (Auto) 0.19 (0-0.5) K/uL Baso # (Auto) 0.01 (0-0.2) K/uL PT 11.5 (9.0-12.0) Seconds INR 1.1 (0.9-1.1) APTT 25.3 (21.0-31.0) Seconds PTT Ratio 0.9 POC Sodium (135-144) mEq/L Sodium 144 (136-145) mmol/L POC Potassium (3.3-5.0) mEq/L Potassium 4.4 (3.5-5.1) mmol/L POC Chloride (101-112) mEq/L Chloride 111 H (98-107) mmol/L Carbon Dioxide 26 (21-32) mmol/L POC Total CO2 (24-31) mEq/l Anion Gap 7.0 (3-11) POC Anion Gap (16-25) mmol/L POC BUN (7-18) mg/dl BUN 15 (7-18) mg/dl Creatinine 0.81 (0.6-1.4) mg/dl POC Creatinine (0.6-1.3) mg/dl Est Cr Clr Drug Dosing 105.6 ml/min Est GFR ( Amer) 132.5 Est GFR (Non-Af Amer) 114.3 BUN/Creatinine Ratio 19.0 (10-20) Glucose 91 (70-99) mg/dl POC Glucose (other) (70-99) mg/dl Calcium 9.8 (8.5-10.1) mg/dl POC Ioniz Calcium Jeremy (1.12-1.32) mmol/l Total Bilirubin 0.3 (0.2-1) mg/dl AST 22 (15-37) U/L ALT 38 (12-78) U/L Alkaline Phosphatase 110 (45-117) U/L Total Creatine Kinase 58 (39-308) U/L CK-MB (CK-2) < 1.0 (0.5-3.6) ng/ml CK/CKMB % Calc TNP Troponin I < 0.015 (0-0.045) ng/ml Total Protein 6.9 (6.4-8.2) gm/dl Albumin 2.9 L (3.4-5.0) gm/dl Globulin 4.0 (2.5-4.0) gm/dl Albumin/Globulin Ratio 0.7 L (0.9-2) Lipase 247 (73-393) U/L 06/27/19 Range/Units 19:47 WBC (4.8-10.8) K/uL RBC (4.7-6.1) M/uL Hgb (14.0-18.0) g/dL POC Hgb 11.6 L (14.0-18.0) g/dl Hct (42-52) % POC Hct 34 L (42-52) % MCV (80-100) fL MCH (25-34) pg MCHC (32-36) g/dL RDW Std Deviation (36.4-46.3) fL RDW Coeff of Alondra (11.5-14.5) % Plt Count (130-400) K/uL MPV (7.4-10.4) fL Immature Gran % (Auto) % Neut % (Auto) % Lymph % (Auto) % [place] % (Auto) % Eos % (Auto) % Baso % (Auto) % Immature Gran # (Auto) (0.00-0.02) K/uL Neut # (Auto) (1.4-6.5) K/uL Lymph # (Auto) (1.2-3.4) K/uL [place] # (Auto) (0.11-0.59) K/uL Eos # (Auto) (0-0.5) K/uL Baso # (Auto) (0-0.2) K/uL PT (9.0-12.0) Seconds INR (0.9-1.1) APTT (21.0-31.0) Seconds PTT Ratio POC Sodium 141 (135-144) mEq/L Sodium (136-145) mmol/L POC Potassium 4.4 (3.3-5.0) mEq/L Potassium (3.5-5.1) mmol/L POC Chloride 108 (101-112) mEq/L Chloride (98-107) mmol/L Carbon Dioxide (21-32) mmol/L POC Total CO2 26 (24-31) mEq/l Anion Gap (3-11) POC Anion Gap 12.0 L (16-25) mmol/L POC BUN 14 (7-18) mg/dl BUN (7-18) mg/dl Creatinine (0.6-1.4) mg/dl POC Creatinine 0.8 (0.6-1.3) mg/dl Est Cr Clr Drug Dosing ml/min Est GFR ( Amer) Est GFR (Non-Af Amer) BUN/Creatinine Ratio (10-20) Glucose (70-99) mg/dl POC Glucose (other) 92 (70-99) mg/dl Calcium (8.5-10.1) mg/dl POC Ioniz Calcium Jeremy 1.21 (1.12-1.32) mmol/l Total Bilirubin (0.2-1) mg/dl AST (15-37) U/L ALT (12-78) U/L Alkaline Phosphatase (45-117) U/L Total Creatine Kinase (39-308) U/L CK-MB (CK-2) (0.5-3.6) ng/ml CK/CKMB % Calc Troponin I (0-0.045) ng/ml Total Protein (6.4-8.2) gm/dl Albumin (3.4-5.0) gm/dl Globulin (2.5-4.0) gm/dl Albumin/Globulin Ratio (0.9-2) Lipase (73-393) U/L Imaging Data Radiologist's Impression: Radiology results as stated below per my review and the radiologist's interpretation: CHEST CTA for PULMONARY ARTERIES CT DOSE: 279.99 mGy.cm HISTORY: Atypical Chest Pain, eval for PE TECHNIQUE: Multiaxial CT images of the chest were performed following the intravenous administration of contrast to evaluate the pulmonary arteries. Maximal intensity projection images were also obtained. A dose lowering technique was utilized adhering to the principles of ALARA. COMPARISON STUDY: Chest CTA 08/26/2017. FINDINGS: Normal caliber thoracic aorta with no evidence for dissection. The heart is mildly enlarged. There is evidence for right-sided heart strain. Multiple bilateral pulmonary emboli, right greater than left. This includes a large thrombus within the distal right main pulmonary artery. Some of the emboli are nonocclusive and have a linear configuration. Therefore, this could represent an acute on chronic pulmonary emboli. Small right and trace left pleural effusions. Normal esophagus. Questionable abnormal soft tissue along the superior border of the distal right mainstem bronchus. However, this could represent the actual thrombus itself. This is best seen on image 149. This abuts the anterior border of the right mainstem bronchus and measures 2.3 x 1.5 cm. The visualized liver, spleen, and adrenal glands unremarkable. No suspicious lytic or blastic osseous lesions. Old, healed right-sided clavicle fracture. Bibasilar linear densities favor subsegmental atelectasis. Right apical posterior nodular density measures 1 cm on image 203. This appears to represent fluid within the major fissure. Patchy peripheral areas of consolidation within the right upper lobe likely representing pulmonary infarcts. There is also a fo josef wedge-shaped consolidation within the lingula suggesting a pulmonary infarct. The central airways are patent. No pneumothorax. IMPRESSION: 1. Multiple bilateral pulmonary emboli, right greater than left. This includes a large thrombus within the distal right main pulmonary artery. Some of the emboli are nonocclusive and have a linear configuration. Therefore, this could represent an acute on chronic pulmonary emboli. There is associated right-sided heart strain. 2. Small right and trace left pleural effusions. 3. Questionable abnormal soft tissue along the superior border of the distal r ight mainstem bronchus. However, this could represent the actual thrombus itself. [address] follow-up is recommended to ensure resolution of this possible abnormality. 4. Focal wedge-shaped areas of consolidation within the right upper lobe and lingula consistent with pulmonary infarcts. Electronically signed by: Royer Covarrubias M.D. 06/27/2019 8:27 PM LEFT LOWER EXTREMITY VENOUS DOPPLER HISTORY: Left leg swelling, recent DVT COMPARISON STUDY: None. FINDINGS: The left external iliac vein is patent. Occlusive to near occlusive thrombus seen throughout the entire left lower extremity deep venous system. IMPRESSION: Extensive left lower extremity DVT. Electronically signed by: Royer Covarrubias M.D. 06/27/2019 9:56 PM ECG Data Attestation: I personally reviewed and interpreted this ECG as follows: Indication: + SOB/dyspnea and + other (left leg pain, previous blood clot) Rate (beats per minute): 82 Rhythm: + normal sinus ECG ST segments: + T-wave inversions (Anterior and lateral TWI noted. ) ECG Findings: no PACs and no PVCs Comparison ECG Date: from (08/27/17) Change: the following changes noted (TWI is new.) Blood Pressure Blood Pressure Findings: Normal blood pressure Blood Pressure Disposition: further management by hospitalist MDM Narrative The patient is a 38-year-old male who presented to the emergency department for leg pain. The patient was recently diagnosed with an extensive DVT in his left leg. He was started on Eliquis approximately 7 days ago. He presents to the emergency department today because of worsening pain in his leg. He also has been noticing right-sided chest pain. I discussed the patient's laboratory and radiographic status with him. Despite being on an oral anticoagulant the patient appears to have developed a pulmonary embolism with pulmonary infarct. The patient was started on IV heparin. He was reevaluated multiple times. Doppler which was repeated this evening does show extensive DVT in the left leg. It is possible the patient may require further anticoagulation treatment. I discussed his case with the on-call [facility] hospitalist group. They have agreed to evaluate the patient in the emergency department for further management and disposition. Impression & Plan Pulmonary embolism, Pulmonary infarct, DVT (deep venous thrombosis), Acute electrocardiogram changes Discharge Plan Visit Data Chief Complaint: Pain (Generalized) Stated Complaint: PAIN, OVERALL NOT FELLING WELL ED Provider: Clay Falcon Discharge Problem: Pulmonary embolism, Pulmonary infarct, DVT (deep venous thrombosis), Acute electrocardiogram changes Patient Disposition: Being Evaluated by Hospitalist Forms Stand Alone Forms: My [facility] [id number] Prescriptions Prescriptions: No Action fluoxetine 10 mg capsule 10 mg PO QAM RF: 0 ondansetron HCl 4 mg tablet 4 mg PO Q6H PRN (Reason: Nausea) RF: 0 fexofenadine [Josee Allergy] 180 mg Tablet 180 mg PO HS RF: 0 lorazepam 0.5 mg Tablet 0.5 mg PO BID PRN (Reason: Anxiety) RF: 0 Eliquis 5 mg tablet 5 mg PO QAM RF: 0 Referrals Referrals: Frank Coles MD [Primary Care Provider] - Discharge Problem: Pulmonary embolism Qualifiers: Pulmonary embolism type: unspecified Chronicity: acute Acute cor pulmonale presence: unspecified Qualified Code(s): I26.99 - Other pulmonary embolism without acute cor pulmonale DVT (deep venous thrombosis) Qualifiers: DVT location: lower extremity Affected thrombotic vein of extremity: unspecified vein of extremity Chronicity: unspecified Laterality: left Qualified Code(s): I82.402 - Acute embolism and thrombosis of unspecified deep veins of left lower extremity The scribe's documentation has been prepared under my direction and personally reviewed by me in its entirety. I confirm that the note above accurately reflects all work, treatment, procedures, and medical decision making performed by me.
--- NOTE | 2019-06-27 21:57 | Ultrasound Report ---
LEFT LOWER EXTREMITY VENOUS DOPPLER HISTORY: Left leg swelling, recent DVT COMPARISON STUDY: None. FINDINGS: The left external iliac vein is patent. Occlusive to near occlusive thrombus seen throughou t the entire left lower extremity deep venous system. IMPRESSION: Extensive left lower extremity DVT. Electronically signed by: Royer Covarrubias M.D. 06/27/2019 9:56 PM
[2019-06-27] MEDS ORDERED: MoRPHine SULFATE 4 MG/ML 1 ML CARP\\VIAL IV PRN (22:54)
[2019-06-27] MEDS ORDERED: ONDANSETRON INJ 2 MG/ML 2 ML VIAL IV PRN (22:54)
[2019-06-27] MEDS ORDERED: ACETAMINOPHEN 325 MG TAB PO PRN (22:54)
[2019-06-27] MEDS ORDERED: NITROGLYCERIN SL 0.4 MG/TAB TAB SL PRN (22:54)
--- NOTE | 2019-06-28 00:41 | History and Physical Report ---
DATE OF ADMISSION: 06/27/2019 CHIEF COMPLAINT: Left flank pain. HISTORY OF PRESENT ILLNESS: A 38-year-old male with past medical history significant for myotonic muscular dystrophy, factor V Leiden mutation, anxiety, depression, history of left ventricular dysfunction, hyperlipidemia, allergic rhinitis who presents with left leg pain. The patient has had left leg pain since 06/17/2019 and then on 06/19/2019 was diagnosed with acute DVT as outpatient and he was placed on Eliquis. The patient states after his leg pain started few days later noticed to have also right-sided chest pain radiating to back.Swelling in the leg has improved since started on Eliquis, but he still has significant pain, so he came to the ER because of on going left leg pain.. CTA of the chest was done in the ER which showed multiple bilateral pulmonary emboli, right greater than left, these includes large thrombus of the distal right main pulmonary artery, some of the emboli are non-occlusive, and , could be acute on chronic pulmonary emboli. Also has right-sided heart strain. Questionable abnormal soft tissue along with superior border of the distal right main stem bronchus; however, this could represent actual thrombus itself, [address] followup is recommended. Focal wedge shaped areas of consolidation within the right upper lobe and lingula consistent with pulmonary infarcts. Patient was thought to have failure of Eliquis and placed on IV heparin in the ER. Currently, after some pain medication, his pain is improved, but the patient is tearful and crying. Mother is in the room. The patient lives with his mom. He has a history of anxiety and depression. His depression is getting worse as per mother and she is requesting some counseling. As per mother, the patient's appetite is not great, recently he also had some frontal headache and also pain below the right eye, initially treated with steroid course, which did not help, then he had a CT of the head which showed some confluent hypodensity anterior temporal lobe white matter and mild patchy hypodensity in the bilateral subcortical cerebral white matter and there is plan for MRI for further delineation of these lesions which was done on Tuesday, but the results are pending. The patient's headaches are better now. Denies any blurred visions, no runny nose, no sore throat, no cough, no difficulty swallowing. No shortness of breath, no nausea, no abdominal pain, no diarrhea or constipation, no blood in the stools, no hematuria, no burning micturition. Ambulates okay without any support. Currently resting comfortably and hemodynamically stable. ALLERGIES: BACTRIM, AZITHROMYCIN. PAST MEDICAL HISTORY: As mentioned above. PAST SURGICAL HISTORY: Status post ablation of the atrial flutter. MEDICATIONS: Fluoxetine 10 mg p.o. daily, Eliquis 5 mg p.o. b.i.d., Josee 180 mg p.o. daily. FAMILY HISTORY: No family history in file. SOCIAL HISTORY: Single, lives with his mom. No smoking, no alcohol use, no drug use. REVIEW OF SYMPTOMS: As per HPI. Rest of review of symptoms are negative. PHYSICAL EXAMINATION: GENERAL: The patient is thin and frail, not in acute distress. VITAL SIGNS: Temperature 36.3, pulse 93, respiratory rate 18, blood pressure 102/70, oxygen 94%. HEENT: Extraocular muscles intact. NECK: No JVD, no neck masses, no carotid bruits. CARDIOVASCULAR: S1, S2 heard, regular rate and rhythm, no murmur, no gallop. RESPIRATORY SYSTEM: Normal AP diameter. No thyromegaly. No wheezing, no crackles. ABDOMEN: Soft, bowel sounds present, nontender. No distention. CENTRAL NERVOUS SYSTEM: Alert and oriented. Moves extremities. EXTREMITIES: No edema. Mild left lower extremity swelling, no erythema seen. LABORATORIES DATA: WBC 4.4, hemoglobin 12.5, hematocrit 37.5, platelets 304. PT 11.5, INR 1.1, APTT 25.3. Sodium 144, potassium 4.4, chloride 111, bicarbonate 26, BUN 15, creatinine 0.8, serum glucose 91, calcium 9.8, total bilirubin 0.3, AST 22, ALT 38, alkaline phosphatase 110, total creatinine kinase 58, troponin I less than 0.015. Lipase 247. IMAGING: CT of the chest, multiple bilateral pulmonary emboli, right greater than left, this includes a large thrombus within the distal right main pulmonary artery. Some of the emboli are non-conclusive, some of the emboli are nonocclusive and has a linear configuration. Therefore, this could represent an acute on chronic pulmonary emboli. There is associated right heart strain. Small right and trace left pleural effusions, questionable abnormal soft tissues along the superior border of the distal right main stem bronchus; however, this could represent the actual thrombus itself, [address] followup is recommended to ensure resolution of this possible abnormality, focal wedge shaped areas of consolidation within the right upper lobe and lingula consistent with pulmonary infarcts. ASSESSMENT AND PLAN: This is a 38-year-old male who presents with recent diagnosis of deep venous thrombosis, presented with having pain in the left lower extremity and also with chest pain and found to have acute pulmonary embolism. 1. Acute pulmonary embolism, possibly acute on chronic pulmonary embolus, multiple emboli and infarcts and possible right heart strain. Currently hemodynamically stable. Troponin negative. Possible failure of the Eliquis. We will place him on IV heparin. The patient does not want to be on Coumadin . We will get pulmonary consult in a.m. and also follow echocardiogram and monitor the hemodynamics on tele floor. 2. Deep venous thrombosis diagnosed in 06/19/2019, management of anticoagulation as above. 3. Muscular dystrophy: Recent CAT scan showed some white matter lesions, related to possible type 1 myotonic muscular dystrophy. Had MRI scan, results are pending. Follow up with PCP and Neurology. 4. History of depression and anxiety. Continue fluoxetine 10 mg daily, the patient is tearful, mother says that the patient is getting worse and she wanted some counseling, we will consult psychiatry in a.m. 5. Allergic rhinitis. Continue Josee. 6. Deep venous thrombosis prophylaxis, IV heparin. DISPOSITION: Closely monitor in tele floor. Level 1 full code. PT and OT per discharge. Social Service to help with discharge planning. KING
[2019-06-28 03:14] LABS: Partial Thromboplastin Ratio 2.8
[2019-06-28 03:22] LABS: Partial Thromboplastin Time 76.8 Seconds (21.0-31.0)
[2019-06-28 06:11] LABS: Basophils # (auto) 0.01 K/uL (0-0.2); Basophils % (auto) 0.2 %; Eosinophils # (auto) 0.21 K/uL (0-0.5); Eosinophils % (auto) 4.6 %; Hematocrit (blood only) 31.9 % (42-52); Hemoglobin 10.4 g/dL (14.0-18.0); Immature Granulocytes # (auto) 0.01 K/uL (0.00-0.02); Immature Granulocytes % (auto) 0.2 %; Lymphocytes # (auto) 1.62 K/uL (1.2-3.4); Lymphocytes % (auto) 35.8 %; Mean Corpuscular Hgb Conc 32.6 g/dL (32-36); Mean Corpuscular Volume 94.9 fL (80-100); Mean Platelet Volume 10.3 fL (7.4-10.4); Monocytes # (auto) 0.59 K/uL (0.11-0.59); Monocytes % (auto) 13.1 %; Neutrophils # (auto) 2.08 K/uL (1.4-6.5); Neutrophils % (auto) 46.1 %; Platelet Count 250 K/uL (130-400); Red Blood Count 3.36 M/uL (4.7-6.1); White Blood Count 4.52 K/uL (4.8-10.8)
[2019-06-28 06:39] LABS: BUN Creatinine Ratio 18.5 (10-20); Calcium 8.5 mg/dl (8.5-10.1); Creatinine Clr Calc Pharmacy 123.9 ml/min; Est GFR (African American) 141.6; Est GFR (Non-African American) 122.1; Magnesium 2.2 mg/dl (1.8-2.4); Potassium 4.1 mmol/L (3.5-5.1)
[2019-06-28] MEDS ORDERED: SODIUM CHLORIDE 0.9% 1000ML 500 ML IV ONE (07:38)
[2019-06-28] MEDS: MULTIVITAMIN TAB PO SCH (07:55)
[2019-06-28] MEDS: FEXOFENADINE HCL 180 MG TAB PO SCH (07:55)
[2019-06-28] MEDS ORDERED: FLUOXETINE HCL 10 MG CAP PO SCH (09:00)
[2019-06-28] MEDS ORDERED: SODIUM CHLORIDE 0.9% 1000ML 1,000 ML IV SCH (09:00)
--- NOTE | 2019-06-28 09:41 | Psychiatric Consultation ---
Date of Consultation June 28, 2019 Impression / Recommendations Impression 38-year-old male admitted medically on 06/27/2019 after presenting to the ED with reports of headaches, and right-sided chest pain. He was also recently diagnosed with a DVT of his left leg, and was started on Eliquis. Patient has a history of treatment for anxiety and depression, reporting worsening of mood with recent health concerns and progression of myotonic muscular dystrophy. Patient has attempted to seek psychiatric treatment in the past, but has had difficulty maintaining services due to rotation of providers within various practices. Patient states his psychiatric medications have been prescribed by his PCP for several years now. He states that he has been on 10 mg of fluoxetine unchanged for about 8 to 10 years. There have been attempts in the past to increase his dose to 20 mg, with concern for increased fatigue with these adjustments. Patient does not recall a discussion moving his fluoxetine dosing to bedtime, and states the dose was often lowered and continued. Patient does report one prior medication trial of imipramine, several decades ago. Otherwise he does not recall any prior antidepressant trials. We did review possibility of discontinuing fluoxetine and initiating bupropion, as this medication may provide additional support for energy and improved mood. After review of this medication, patient and mother report desire to try changing fluoxetine to bedtime rather than changing his medication at this time. Risks, benefits, and potential side effects of the dose increase were reviewed with the patient and his mother; both verbalizing understanding and are agreeable with the medication adjustment. Recommendation for scheduling of dose titration was reviewed with patient and mother, who both were in agreement. Since patient received 10 mg of fluoxetine this morning, would recommend providing 10 mg as a bedtime dose tonight, then increasing to 20 mg nightly. Reviewed that there is possibility that fatigue may persist despite dose adjustments, and recommended the family consider alternative antidepressant agents should this occur. Patient and mother also request referrals for therapy, which have been initiated by her psychiatric nurse liaison. Patient denies suicidal ideation, homicidal ideation, self-injurious urges, auditory or visual hallucinations, and any signs of acute psychosis. Inpatient psychiatric admission is not recommended at this time. We will continue to follow patient during his hospitalization, and make additional recommendations where appropriate. We will follow-up with patient and family regarding therapy appointments. They report desire to remain with her PCP for medication prescribing. We appreciate the opportunity to participate in the care of this patient. Please reach out to our service with any additional questions or concerns. Dr. Hung Williamson was directly involved in review and discussion of the patient's case and participated in medical decision making regarding treatment recommendations. Risk Factors Assessment Do You Have Access To A Gun?: Yes (Gums are secured within the home) Psych History Identifying Data 38-year-old male admitted medically on 06/27/2019 after presenting to the ED with chest pain and headaches. Patient had previously been diagnosed with a DVT of his left leg, and was found to have multiple bilateral PEs on examination in the ED. Patient has a history of myotonic muscular dystrophy, factor V Leiden mutation, left ventricular dysfunction, hyperlipidemia, anxiety, and depression. Psychiatric consultation was requested to evaluate patient for depression, as he has reportedly been tearful for most of his hospitalization. Information is gathered from patient and his mother, as well as prior hospital documentation. Chief Complaint "About a week ago I had pain in my legs." History of Present Illness Cabrera Rojo is a 38-year-old male admitted medically on 06/27/2019 after presenting to the ED with headaches and chest pain. Patient was diagnosed with DVT of his left leg on 06/19/2019, and was started on Eliquis on an outpatient basis. Patient was brought to the ED by significant worsening of headaches, and reports of right-sided chest pain. Bilateral pulmonary emboli were found during work-up in the ED, and patient was hospitalized for further management. Psychiatric consultation was requested to evaluate patient for worsening depression, as he has been tearful during encounters with his primary team. Patient does have a history of both depression and anxiety, which is currently being managed by his PCP. Patient's case was reviewed with psychiatric nurse liaison who obtained initial information from the patient and his mother. Patient is cooperative with psychiatric evaluation by this provider. Patient's mother, Greta, was permitted by patient to remain in the room during our conversation. Patient updates this provider about his presentation to the ED, and reports "I just want to go home." He states that physically he is feeling "maybe a little better", but is hoping for discharge soon. Patient reports a long history of depression, stating he has been treated with 10 mg of fluoxetine for nearly a decade. Patient reports 1 prior antidepressant trial of imipramine, but otherwise has remained on fluoxetine more recently. Patient does report prior attempts to titrate his dose to 20 mg, but states these changes often resulted in increased fatigue. Patient and mother do not recall patient be instructed to take the medication at any time other than in the morning. We reviewed possible medication adjustments, which include titration of fluoxetine to 20 mg with bedtime dosing. Recommendation to trial an alternative agent was also suggested, particularly bupropion, as this may be more effective at improving his energy throughout the day while also treating his depressive symptoms. Patient reports depressive symptoms of low mood, anhedonia, apathy, increased desire to sleep (often 13+ hours per day), decreased appetite, and low energy. Patient initially states that he does not have much in his life that brings him vernell, but then is able to share with this provider multiple activities that he still participates in throughout the week. Patient states that he often goes bowling, plays video games, and works 2 days a week at [employer]. Patient does report a sense of indifference regarding his life. He states "if I , I . I do not care." He does deny suicidal ideation, or thoughts to harm himself or bring about . He does admit to prior history of suicidal ideation, stating "I have been there", back in "fourth or fifth grade." He reports he does not currently feel the way that he did back then, and denies any significant safety concerns. Patient and mother are interested in setting up therapy services, to begin cognitive behavioral therapy. They have already discussed this request with psychiatric nurse liaison, who is beginning the referral process. Pt denies SI, HI, SIB, A/V hallucinations, paranoia, vesta/hypomania, other symptoms more suggestive of a bipolar presentation, OCD, eating disorder, and other specific psychiatric symptoms. Past Psychiatric History Current Psychiatric Diagnosis: Anxiety, Depression Outpatient Services: Currently, the patient's PCP manages his psychiatric medication. Previous Psych Admissions: Denies Do You Have Access To A Gun?: Yes (Gums are secured within the home) History of Previous Suicide Attempt: No Past Medication Trials: Patient reports only medication trial prior to fluoxetine was imipramine. Allergies Allergy/AdvReac Type Severity Reaction Status Date / Time Bactrim Allergy Mild HIVES Unverified 08/26/17 06:52 sulfamethoxazole Allergy Mild HIVES Verified 06/27/19 21:22 trimethoprim Allergy Mild HIVES Verified 06/27/19 21:22 azithromycin Allergy MADE HIM Verified 06/27/19 21:22 FEEL SICKER THAN HE WAS Home Medications Home Medications Medication Instructions Recorded Confirmed Type apixaban [Eliquis] 5 mg PO QAM 06/27/19 06/27/19 History fexofenadine [Josee Allergy] 180 mg PO HS 06/27/19 06/27/19 History fluoxetine 10 mg PO QAM 06/27/19 06/27/19 History lorazepam 0.5 mg PO BID PRN 06/27/19 06/27/19 History ondansetron HCl 4 mg PO Q6H PRN 06/27/19 06/27/19 History Family History Patient reports a sister with anxiety and depression. Otherwise, he denies known family history of mental health conditions, drug or alcohol abuse, or prior attempted/completed suicides. Substance Abuse History Patient denies tobacco use. Admits to consuming about 1 beer per month. Denies use of other illicit substances. Personal History Living Arrangements: Home (With mother) Childhood: Patient was born and raised in [place], currently lives with mother. Father 5 years ago, which has been difficult for the patient. 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 ([employer]; [employer]; [employer] in [place]) Marital Status: Single Number Of Children: None Beliefs That Will Affect Care: Worship History of Legal Problems: Denies Psychological Trauma History Comment: Father 5 years ago, still has difficulty processing this loss Patient History Medical History Anxiety (Chronic) Atrial flutter (Chronic) "s/p ablation" Factor V Leiden (Chronic) History of blood clots Hypotension Myotonic muscular dystrophy (Chronic) Pleural effusion Pleural effusion Social History Preferred Language: Bermudian Communication Ability: Effective Day Worker Required: No Beliefs That Will Affect Care: None Current Living Situation: Family Other Information That Helps Us Care for You: No Feels Safe at Home: Yes Safety Concerns: Feels Safe At This Time Smoking Status: Unknown if ever smoked Hx Alcohol Use: No Hx Substance Use: No Physical Exam Psychiatric: Orientation: alert, oriented x 3 and cooperative Apperance: appropriately dressed, appropriately groomed and appeared stated age Thin- appearing male, laying in bed in no acute distress, wearing oxygen mask. Pt is appropriately dressed in hospital gown. Level of hygiene and grooming appearing adequate. Eye Contact: + fair eye contact (at times drifting of to sleep and closing eyes, rapidly re-awakens) Motor Behavior: no abnormal motor movements (Observed while laying in bed) Speech: normal rate/rhythm/volume of speech (Soft tone) Affect: + depressed affect, + tearful affect and mood congruent with affect Mood: + depressed mood ("I just don't care") Thought Process: goal directed thought process, clear/coherent thought process and thought association intact Thought Content: reality based without delusions and + hopelessness Suicidal Thoughts: denies suicidal thoughts (states "I don't care if I ", but denies thoughts to harm self/end life), denies suicidal plan and denies suicidal intent Homicidal Thoughts: denies homicidal thoughts Hallucinations: no auditory hallucinations and no visual hallucinations Cognition: attention grossly intact and language grossly intact Insight: + fair insight Judgement: + fair judgement Vital Signs (Past 24 Hours): Last Vital Signs Temp 36.4 C L 06/28/19 07:35 Pulse 52 L 06/28/19 09:13 Resp 18 06/28/19 09:13 BP 92/57 L 06/28/19 09:13 Pulse Ox 89 L 06/28/19 09:13 Review of Systems Constitutional: reports weakness, generalized fatigue Cardiovascular: denied Respiratory: reports shortness of breath, currently on oxygen Gastrointestinal: denied Neurological: denied Psychiatric: denies symptoms other than stated above Total of at least 10 systems reviewed, pertinent positives as above and in HPI. Results & Data Medications Administered Fexofenadine HCl (Josee) 180 mg PO QAM [facility] Stop: 07/28/19 08:59 Last Admin: 06/28/19 07:55 Dose: 180 mg Documented by: [id number] Fluoxetine HCl (Prozac) 10 mg PO DAILY [facility] Stop: 07/28/19 08:59 Last Admin: 06/28/19 07:55 Dose: 10 mg Documented by: [id number] Heparin Sodium/Dextrose (Heparin Sodium/Dextrose) 25,000 units in 500 mls @ 20 mls/hr IV .Q24H [facility]; Protocol Stop: 07/27/19 20:44 Last Titration: 06/28/19 06:55 Dose: 1,000 units/hr, 20 mls/hr Documented by: [id number] Cosigned by: [id number] Titration: 06/28/19 03:22 Dose: 1,000 units/hr, 20 mls/hr Documented by: [id number] Cosigned by: [id number] Titration: 06/27/19 23:08 Dose: 1,100 units/hr, 22 mls/hr Documented by: [id number] Cosigned by: [id number] Admin: 06/27/19 20:44 Dose: 1,100 units/hr, 22 mls/hr Documented by: [id number] Cosigned by: [id number] Multivitamins (Multivitamin Tab) 1 tab PO QAM [facility] Stop: 07/28/19 08:59 Last Admin: 06/28/19 07:55 Dose: 1 tab Documented by: [id number] Coding Level of Care Code 87574 U Intl Hosp Care Lvl 3
[2019-06-28 10:02] LABS: Partial Thromboplastin Ratio 2.3
[2019-06-28 10:04] LABS: NT Pro B Type Natriuretic Pept 200 pg/ml (0-450); Troponin I < 0.015 ng/ml (0-0.045)
[2019-06-28 10:05] LABS: Partial Thromboplastin Time 61.5 Seconds (21.0-31.0)
--- NOTE | 2019-06-28 10:28 | Pulmonary Consultation ---
Date of Consultation June 28, 2019 Assessment & Plan (1) Pulmonary embolism: Patient has a very large pulmonary embolism and an associated right pleural effusion with areas of pulmonary infarction. Recommend continue anticoagulation. He is hypoxemic currently which should improve with continued resolution of the pulmonary embolism which will take weeks. Continue heparin for today and likely switch over to a direct oral anticoagulant. He does not require systemic or catheter directed TPA at this present time as all of his hemodynamic parameters are at his baseline. His lactate, BNP and troponin were all unremarkable. Echo is pending. He does have chronic respiratory insuffic iency and apparently has a history of nocturnal hypoxemia. 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 He would benefit from outpatient pulmonary follow-up with PFTs to monitor his forced vital capacity. At this time, he does not seem overtly infected and I am not too inclined to do a thoracentesis on the right pleural effusion especially in light of the fact that he is on anticoagulation with a large burden pulmonary embolism. Continue to monitor this for now. He will need at least 6 months of anticoagulation and perhaps lifelong given all of his underlying issues. Acute cor pulmonale presence: unspecified Chronicity: acute Pulmonary embolism type: unspecified Qualified Code(s): I26.99 - Other pulmonary embolism without acute cor pulmonale (2) Pleural effusion: (3) Hypotension: Hypotension type: unspecified hypotension type Qualified Code(s): I95.9 - Hypotension, unspecified History of Present Illness Reason for Consultation: Pulmonary embolism Attending Physician: Case Khanna MD History of Present Illness This is a 38-year-old male with a history of myotonic muscular dystrophy, factor V Leiden mutation, anxiety, depression, history of left ventricular dysfunction who presented to the hospital due to increasing shortness of breath. He was found to have a an extensive DVT as an outpatient and placed on Eliquis. He had a CTA done this admission which demonstrated a large right-sided pulmonary embolism with evidence of pulmonary infarction. Pulmonary was consulted due to concerns of hemodynamic instability and large pulmonary embolism. I saw the patient and his mother was also present in the room. He denies any current complaints. His mother notes that he is chronically hypotensive with systolic blood pressures in the 80s to 90s. He is also chronically bradycardic with heart rates in the 40s to 50s on a routine basis. He has a history of atrial tachycardia/flutter and apparently underwent ablation in the past. Patient notes that he is short of breath more so than usual. The mother notes that the patient is usually very sedentary and just plays video games all day. He is not normally on oxygen but has been requiring 5 L of supplemental oxygen here to get his sats up to 93 to 94%. At the time of my examination he was on 2 L of oxygen satting at 88%. He denies any abdominal pain no nausea or fevers. Lactate was negative. Troponin negative. BNP normal. Echocardiogram is pending. Allergies Allergy/AdvReac Type Severity Reaction Status Date / Time Bactrim Allergy Mild HIVES Unverified 08/26/17 06:52 sulfamethoxazole Allergy Mild HIVES Verified 06/27/19 21:22 trimethoprim Allergy Mild HIVES Verified 06/27/19 21:22 azithromycin Allergy MADE HIM Verified 06/27/19 21:22 FEEL SICKER THAN HE WAS Home Medications Home Medications Medication Instructions Recorded Confirmed Type apixaban [Eliquis] 5 mg PO QAM 06/27/19 06/27/19 History fexofenadine [Josee Allergy] 180 mg PO HS 06/27/19 06/27/19 History fluoxetine 10 mg PO QAM 06/27/19 06/27/19 History lorazepam 0.5 mg PO BID PRN 06/27/19 06/27/19 History ondansetron HCl 4 mg PO Q6H PRN 06/27/19 06/27/19 History Patient History Medical History Anxiety (Chronic) Atrial flutter (Chronic) "s/p ablation" Factor V Leiden (Chronic) History of blood clots Myotonic muscular dystrophy (Chronic) Social History Preferred Language: Scottish Communication Ability: Effective 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 He is laying in bed. He appears to have some developmental delay. Eyes: PERRL, conjunctivae normal, anicteric sclerae ENMT: external ear and nose normal, oropharynx normal Neck: trachea midline, no thyromegaly Respiratory: Diminished breath sounds at the bases. Mildly tachypneic. Nasal cannula in place. Cardiovascular: Bradycardic. Mild systolic murmur. Gastrointestinal (Abdomen): normal bowel sounds, soft, nontender, no hepatosplenomegaly Musculoskeletal: Head/Neck/Chest: head atraumatic Neurologic: CN's II-XI intact bilaterally Psychiatric: Alert and oriented. Tearful at times. Results & Data Vital Signs (Past 12 Hours) Vital Signs Temp Pulse Pulse Resp BP BP Pulse Ox 06/28/19 09:51 59 L 20 105/70 93 06/28/19 09:13 52 L 18 92/57 L 89 L 06/28/19 08:36 45 L 85/45 L 06/28/19 07:35 97.5 F L 45 L 18 90/55 L 80/60 L 93 06/28/19 07:00 38 L 06/28/19 05:28 97.5 F L 38 L 20 80/51 L 88 L 06/28/19 00:00 55 L 06/27/19 23:51 98.2 F 47 L 20 102/63 92 06/27/19 22:57 97.7 F 66 16 103/70 94 I personally reviewed the patient's pertinent labs, chest imaging PG Care Time/CCT Total # of Minutes Spent Total Time Spent with Patient: Total time spent is greater than 50% in coordination of care (as documented) at patient's floor/unit and/or counseling patient:
--- NOTE | 2019-06-28 15:25 | Hospitalist Progress Note ---
Date of Service June 28, 2019 Assessment & Plan (1) Pulmonary embolism: Acute on chronic pulmonary embolism - cor pulmonale was initially suspected but has been rule out Anticoagulated by Anticoagulation therapy Chronic left lower extremity deep vein thrombosis -A 38-year-old male with past medical history significant for myotonic muscular dystrophy, factor V Leiden mutation, anxiety, depression, history of left ventricular dysfunction, hyperlipidemia, allergic rhinitis who presents with left leg pain. The patient has had left leg pain since 06/17/2019 and then on 06/19/2019 was diagnosed with acute DVT as outpatient and he was placed on Eliquis. The patient states after his leg pain started few days later noticed to have also right-sided chest pain radiating to back.Swelling in the leg has improved since started on Eliquis, but he still has significant pain, so he came to the ER because of on going left leg pain. -CTA of the chest was done in the ER which showed multiple bilateral pulmonary emboli, right greater than left, these includes large thrombus of the distal right main pulmonary artery, some of the emboli are non-occlusive, and , acute on chronic pulmonary emboli. CTA of the chest also suggested right heart strain -patient was started on heparin drip in place of home dose Eliquis and started supplementary oxygen -during evaluation patient noted to have low to low normotensive blood pressures and bradycardia (patient did receive some IV fluids) -patient reports that is known to have blood pressures on the lower side and denies of feeling symptoms with hospital recorded vital signs; review of outpatient vital signs in clinics in the past of patient with systolic blood pressures recorded between 80 to 110 -discussed with pulmonary/ICU doctor whether any concern for cor pulmonale; pulmonary assessment as of 06/28/19 does not find evidence of cor pulmonale and no recommended role for direct of systemic thrombolysis of the pulmonary embolism -troponins negative x 2, lactic acid normal, BNP normal. echocardiogram on 06/28/19 does not find evidence of cor pulmonale as the Doppler findings do no show pulmonary hypertension. There is normal right ventricular systolic function despite some comment of hypokinesis of apical right ventricle. Ejection is normal at 55 to 60% -will continue patient on heparin drip and monitor for further hemodynamics on telemetry -would not consider recently found pulmonary embolism to be a failure of Eliquis as patient could have already had pulmonary emboli when initially diagnosed with clot in the left leg Acute Respiratory Failure with hypoxia -on 4 liters/minute nasal cannula oxygen -overnight pulse oximetry study ordered, 2 step test for 06/29/19 Pleural Effusions -Small right and trace left pleural effusions on CTA scan -monitoring at this point; thoracentesis not indicated given anticoagulation, d iuretics may be contraindicated given blood pressures Muscular dystrophy -outpatient CT scan 06/13/19: Symmetric, confluent hypodensity in the anterior temporal lobe white matter and mild patchy hypodensity in the bilateral subcortical cerebral white matter. This appearance has been described in patients with type 1 myotonic dystrophy -outpatient 06/21/19 Brain MRI with results pending -PT/OT depression and anxiety -on fluoxetine 10 mg daily at home -psychiatry consult following the patient and recommends providing 10 mg as a bedtime dose on 06/28/19, then increasing to 20 mg nightly Allergic rhinitis -Continue Josee. Deep venous thrombosis prophylaxis, IV heparin Mother Greta [phone] Subjective Patient seen and examined while on nasal cannula. breathing comfortably. denies chest pain. denies abdominal pain. no vomiting. blood pressures have at been at time low to low normotensive but patient is asymptomatic Review of Systems Review of Systems: All systems reviewed & are unremarkable except as noted in HPI & below Physical Exam Constitutional: + thin Eyes: PERRL, conjunctivae normal, anicteric sclerae EOM intact bilaterally ENMT: external ear and nose normal, oropharynx normal Neck: normal visual inspection Respiratory: normal respiratory effort Cardiovascular: Rate/Rhythm: + bradycardic Gastrointestinal (Abdomen): normal bowel sounds, soft, nontender, no hepatosplenomegaly Musculoskeletal: Head/Neck/Chest: normocephalic and head atraumatic Extremities: + lower leg abnormality (left lower extremity edema) Neurologic: PERRL, EOMI, accommodation nl, no face palsy, no dysarthria CN's II-XI intact bilaterally Psychiatric: Orientation: alert, oriented x 3 and cooperative Results & Data Vital Signs (Past 12 Hours) Vital Signs Temp Pulse Pulse Resp BP BP Pulse Ox 06/28/19 11:53 36.5 C 58 L 18 91/57 L 92 06/28/19 09:51 59 L 20 105/70 93 06/28/19 09:13 52 L 18 92/57 L 89 L 06/28/19 08:36 45 L 85/45 L 06/28/19 07:35 36.4 C L 45 L 18 90/55 L 80/60 L 93 06/28/19 07:00 38 L 06/28/19 05:28 36.4 C L 38 L 20 80/51 L 88 L (1) Pulmonary embolism Acute cor pulmonale presence: unspecified Chronicity: acute Pulmonary embolism type: unspecified Qualified Code(s): I26.99 - Other pulmonary embolism without acute cor pulmonale
[2019-06-28] MEDS: HEPARIN SODIUM/DEXTROSE 25,000 UNITS/500 ML BAG IV SCH (18:17)
[2019-06-28] MEDS ORDERED: FLUOXETINE HCL 10 MG CAP PO ONE (21:00)
[2019-06-29 06:30] LABS: Partial Thromboplastin Ratio 2.2
[2019-06-29 06:33] LABS: Partial Thromboplastin Time 58.8 Seconds (21.0-31.0)
[2019-06-29] MEDS ORDERED: ACETAMINOPHEN 325 MG TAB PO PRN (07:29)
[2019-06-29] MEDS: MULTIVITAMIN TAB PO SCH (07:57)
[2019-06-29] MEDS: FEXOFENADINE HCL 180 MG TAB PO SCH (07:57)
--- NOTE | 2019-06-29 17:20 | Hospitalist Progress Note ---
Date of Service June 29, 2019 Assessment & Plan (1) Pulmonary embolism: Acute on chronic pulmonary embolism - cor pulmonale was initially suspected but has been rule out Anticoagulated by Anticoagulation therapy Chronic left lower extremity deep vein thrombosis -A 38-year-old male with past medical history significant for myotonic muscular dystrophy, factor V Leiden mutation, anxiety, depression, history of left ventricular dysfunction, hyperlipidemia, allergic rhinitis who presents with left leg pain. The patient has had left leg pain since 06/17/2019 and then on 06/19/2019 was diagnosed with acute DVT as outpatient and he was placed on Eliquis. The patient states after his leg pain started few days later noticed to have also right-sided chest pain radiating to back.Swelling in the leg has improved since started on Eliquis, but he still has significant pain, so he came to the ER because of on going left leg pain. -CTA of the chest was done in the ER which showed multiple bilateral pulmonary emboli, right greater than left, these includes large thrombus of the distal right main pulmonary artery, some of the emboli are non-occlusive, and , acute on chronic pulmonary emboli. CTA of the chest also suggested right heart strain -patient was started on heparin drip in place of home dose Eliquis and started supplementary oxygen -during evaluation patient noted to have low to low normotensive blood pressures and bradycardia (patient did receive some IV fluids) -patient reports that is known to have blood pressures on the lower side and denies of feeling symptoms with hospital recorded vital signs; review of outpatient vital signs in clinics in the past of patient with systolic blood pressures recorded between 80 to 110 -discussed with pulmonary/ICU doctor whether any concern for cor pulmonale; pulmonary assessment as of 06/28/19 does not find evidence of cor pulmonale and no recommended role for direct of systemic thrombolysis of the pulmonary embolism -troponins negative x 2, lactic acid normal, BNP normal. echocardiogram on 06/28/19 does not find evidence of cor pulmonale as the Doppler findings do no show pulmonary hypertension. There is normal right ventricular systolic function despite some comment of hypokinesis of apical right ventricle. Ejection is normal at 55 to 60% -patient is to be transitioned from IV heparin to Xarelto on 06/29/19 06/29/19: patient eager to be discharged today. He is not interested in pursuing any further hospitalization. acceptable blood pressures for discharge. 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 Patient should avoid NSAID medications such as ibuprofen (Aleve,Motrin) while on blood thinning medication would not consider recently found pulmonary embolism to be a failure of Eliquis as patient could have already had pulmonary emboli when initially diagnosed with clot in the left leg. but to cover any possibility of failure of Eliquis, hospital medical doctor advise use of Xarelto (Rivaroxaban) instead just in case Xarelto (Rivaroxaban) 15 mg twice daily with food for 21 days followed by 20 mg once daily with food (1st dose of Xarelto started at 8PM on 06/29/19 when heparin drip stopped) Fluoxetine 20 mg every night for depression [facility] [place] [address] Patient will need outpatient monitoring and subsequent repeat pulmonary lung imaging in regards to pleural effusions. A referral to outpatient pulmonary clinic follow up with [facility] Pulmonary clinic is recommended and patient and his family member is made aware Patient has been given disc of lung imaging to show to his outpatient doctors Scheduled followups 07/05/2019 2:50 PM Provider Frank Coles MD Department Family Practice [facility] 07/12/2019 12:15 PM Provider David Ortiz MD Department Hematology/Oncology [facility] 07/30/2019 8:00 AM Provider Sonia Schwartz PA-C Department Neurology [facility] ) Acute Respiratory Failure with hypoxia -high oxygen requirement needs on admission based on oxygen saturations -respiratory assessments of oxygen for 4 liter/minute at rest and 6 liters/minute with ambulation for discharge Pleural Effusions -Small right and trace left pleural effusions on CTA scan -monitoring at this point; thoracentesis not indicated given anticoagulation, diuretics appears contraindicated given low normal blood pressures Muscular dystrophy -outpatient CT scan 06/13/19: Symmetric, confluent hypodensity in the anterior temporal lobe white matter and mild patchy hypodensity in the bilateral subcortical cerebral white matter. This appearance has been described in patients with type 1 myotonic dystrophy -outpatient 06/21/19 Brain MRI with results pending -outpatient neurology follow up depression and anxiety -on fluoxetine 10 mg daily at home -psychiatry consult following the patient and recommends providing 10 mg as a bedtime dose on 06/28/19, then increasing to 20 mg nightly Allergic rhinitis -Continue Josee prn Deep venous thrombosis prophylaxis, IV heparin to Xarelto Mother Greta [phone] Discharge Diagnosis Acute on chronic pulmonary embolism - cor pulmonale was initially suspected but has been rule out Anticoagulated by Anticoagulation therapy Chronic left lower extremity deep vein thrombosis Acute Respiratory Failure with hypoxia Pleural Effusions Muscular dystrophy depression Subjective Patient's blood pressures are acceptable. on nasal cannula oxygen. no chest pain. no palpitations. no vomiting. no shortness of breath. patient eager to be discharged today. He is not interested in pursuing any further hospitalization. 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 all have been working together to facilitate safe hospital discharge today Review of Systems Review of Systems: All systems reviewed & are unremarkable except as noted in HPI & below Physical Exam Constitutional: + thin Eyes: PERRL, conjunctivae normal, anicteric sclerae EOM intact bilaterally ENMT: external ear and nose normal, oropharynx normal Neck: normal visual inspection Respiratory: normal respiratory effort Cardiovascular: Rate/Rhythm: + bradycardic Gastrointestinal (Abdomen): normal bowel sounds, soft, nontender, no hepatosplenomegaly Musculoskeletal: Head/Neck/Chest: normocephalic and head atraumatic Extremities: + lower leg abnormality (left lower extremity edema) Neurologic: PERRL, EOMI, accommodation nl, no face palsy, no dysarthria CN's II-XI intact bilaterally Psychiatric: Orientation: alert, oriented x 3 and cooperative Results & Data Vital Signs (Past 12 Hours) Vital Signs Temp Pulse Pulse Pulse Pulse Pulse Pulse 06/29/19 15:34 36.7 C 06/29/19 11:58 36.6 C 06/29/19 09:53 64 85 103 H 105 H 101 H 64 06/29/19 07:49 36.9 C Pulse Resp Resp Resp Resp Resp Resp 06/29/19 15:34 53 L 17 06/29/19 11:58 54 L 17 06/29/19 09:53 18 20 22 22 20 12/13/19 07:49 59 L 20 Resp BP BP Pulse Ox Pulse Ox Pulse Ox Pulse Ox 06/29/19 15:34 109/67 94 06/29/19 11:58 94/59 L 93 06/29/19 09:53 18 87 L 90 91 06/29/19 07:49 92/55 L 89 L Pulse Ox Pulse Ox Pulse Ox 06/29/19 15:34 06/29/19 11:58 06/29/19 09:53 87 L 93 83 L 06/29/19 07:49 (1) Pulmonary embolism Acute cor pulmonale presence: unspecified Chronicity: acute Pulmonary embolism type: unspecified Qualified Code(s): I26.99 - Other pulmonary embolism without acute cor pulmonale
--- NOTE | 2019-06-29 17:26 | Discharge Summary ---
Date of Service June 29, 2019 Admission HPI Per Admitting Provider Cabrera Rojo is a 38-year-old male admitted medically on 06/27/2019 after presenting to the ED with headaches and chest pain. Patient was diagnosed with DVT of his left leg on 06/19/2019, and was started on Eliquis on an outpatient basis. Patient was brought to the ED by significant worsening of headaches, and reports of right-sided chest pain. Bilateral pulmonary emboli were found during work-up in the ED, and patient was hospitalized for further management. Psychiatric consultation was requested to evaluate patient for worsening depression, as he has been tearful during encounters with his primary team. Farheen larose does have a history of both depression and anxiety, which is currently being managed by his PCP. Patient's case was reviewed with psychiatric nurse liaison who obtained initial information from the patient and his mother. Patient is cooperative with psychiatric evaluation by this provider. Patient's mother, Greta, was permitted by patient to remain in the room during our conversation. Patient updates this provider about his presentation to the ED, and reports "I just want to go home." He states that physically he is feeling "maybe a little better", but is hoping for discharge soon. Patient reports a long history of depression, stating he has been treated with 10 mg of fluoxetine for nearly a decade. Patient reports 1 prior antidepressant trial of imipramine, but otherwise has remained on fluoxetine more recently. Patient does report prior attempts to titrate his dose to 20 mg, but states these changes often resulted in increased fatigue. Patient and mother do not recall patient be instructed to take the medication at any time other than in the morning. We reviewed possible medication adjustments, which include titration of fluoxetine to 20 mg with bedtime dosing. Recommendation to trial an alternative agent was also suggested, particularly bupropion, as this may be more effective at improving his energy throughout the day while also treating his depressive symptoms. Patient reports depressive symptoms of low mood, anhedonia, apathy, increased desire to sleep (often 13+ hours per day), decreased appetite, and low energy. Patient initially states that he does not have much in his life that brings him vernell, but then is able to share with this provider multiple activities that he still participates in throughout the week. Patient states that he often goes bowling, plays video games, and works 2 days a week at [employer]. Patient does report a sense of indifference regarding his life. He states "if I , I . I do not care." He does deny suicidal ideation, or thoughts to harm himself or bring about . He does admit to prior history of suicidal ideation, stating "I have been there", back in "fourth or fifth grade." He reports he does not currently feel the way that he did back then, and denies any significant safety concerns. Patient and mother are interested in setting up therapy services, to begin cognitive behavioral therapy. They have already discussed this request with psychiatric nurse liaison, who is beginning the referral process. Pt denies SI, HI, SIB, A/V hallucinations, paranoia, vesta/hypomania, other symptoms more suggestive of a bipolar presentation, OCD, eating disorder, and other specific psychiatric symptoms. Admission Exam Per Admitting Provider GENERAL: The patient is thin and frail, not in acute distress. VITAL SIGNS: Temperature 36.3, pulse 93, respiratory rate 18, blood pressure 102/70, oxygen 94%. HEENT: Extraocular muscles intact. NECK: No JVD, no neck masses, no carotid bruits. CARDIOVASCULAR: S1, S2 heard, regular rate and rhythm, no murmur, no gallop. RESPIRATORY SYSTEM: Normal AP diameter. No thyromegaly. No wheezing, no crackles. ABDOMEN: Soft, bowel sounds present, nontender. No distention. CENTRAL NERVOUS SYSTEM: Alert and oriented. Moves extremities. EXTREMITIES: No edema. Mild left lower extremity swelling, no erythema seen. Principal Diagnosis Acute on chronic pulmonary embolism - cor pulmonale was initially suspected but has been rule out Anticoagulated by Anticoagulation therapy Chronic left lower extremity deep vein thrombosis Acute Respiratory Failure with hypoxia Pleural Effusions Muscular dystrophy depression Discharge Exam Constitutional + thin Eyes PERRL, conjunctivae normal, anicteric sclerae EOM intact bilaterally ENMT external ear and nose normal, oropharynx normal Neck normal visual inspection Respiratory normal respiratory effort Cardiovascular Rate/Rhythm: + bradycardic Gastrointestinal (Abdomen) normal bowel sounds, soft, nontender, no hepatosplenomegaly Musculoskeletal Head/Neck/Chest: normocephalic and head atraumatic Extremities: + lower leg abnormality (left lower extremity edema) Neurologic PERRL, EOMI, accommodation nl, no face palsy, no dysarthria CN's II-XI intact bilaterally Psychiatric Orientation: alert, oriented x 3 and cooperative Discharge Data Allergies Allergy/AdvReac Type Severity Reaction Status Date / Time Bactrim Allergy Mild HIVES Unverified 08/26/17 06:52 sulfamethoxazole Allergy Mild HIVES Verified 06/27/19 21:22 trimethoprim Allergy Mild HIVES Verified 06/27/19 21:22 azithromycin Allergy MADE HIM Verified 06/27/19 21:22 FEEL SICKER THAN HE WAS Consultations 06/27/19 20:39 ED Decision to Admit Stat 06/27/19 22:54 Consult Case Management - Discharge Planning Routine 06/28/19 08:00 Consult Psychiatry Routine Consult Pulmonology Routine 06/28/19 09:24 Consult Pulmonology Routine 06/28/19 16:10 Burn CD for patient Stat Ordered Studies 06/27/19 19:26 US venous doppler LE LT Stat 06/27/19 19:27 CT angio chest PE protocol Stat Hospital Course (1) Pulmonary embolism: Acute on chronic pulmonary embolism - cor pulmonale was initially suspected but has been rule out Anticoagulated by Anticoagulation therapy Chronic left lower extremity deep vein thrombosis -A 38-year-old male with past medical history significant for myotonic muscular dystrophy, factor V Leiden mutation, anxiety, depression, history of left ventricular dysfunction, hyperlipidemia, allergic rhinitis who presents with left leg pain. The patient has had left leg pain since 06/17/2019 and then on 06/19/2019 was diagnosed with acute DVT as outpatient and he was placed on Eliquis. The patient states after his leg pain started few days later noticed to have also right-sided chest pain radiating to back.Swelling in the leg has improved since started on Eliquis, but he still has significant pain, so he came to the ER because of on going left leg pain. -CTA of the chest was done in the ER which showed multiple bilateral pulmonary emboli, right greater than left, these includes large thrombus of the distal right main pulmonary artery, some of the emboli are non-occlusive, and , acute on chronic pulmonary emboli. CTA of the chest also suggested right heart strain -patient was started on heparin drip in place of home dose Eliquis and started supplementary oxygen -during evaluation patient noted to have low to low normotensive blood pressures and bradycardia (patient did receive some IV fluids) -patient reports that is known to have blood pressures on the lower side and denies of feeling symptoms with hospital recorded vital signs; review of outpatient vital signs in clinics in the past of patient with systolic blood pressures recorded between 80 to 110 -discussed with pulmonary/ICU doctor whether any concern for cor pulmonale; pulmonary assessment as of 06/28/19 does not find evidence of cor pulmonale and no recommended role for direct of systemic thrombolysis of the pulmonary embolism -troponins negative x 2, lactic acid normal, BNP normal. echocardiogram on 06/28/19 does not find evidence of cor pulmonale as the Doppler findings do no show pulmonary hypertension. There is normal right ventricular systolic function despite some comment of hypokinesis of apical right ventricle. Ejection is normal at 55 to 60% -patient is to be transitioned from IV heparin to Xarelto on 06/29/19 06/29/19: patient eager to be discharged today. He is not interested in pursuing any further hospitalization. acceptable blood pressures for discharge. 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 Patient should avoid NSAID medications such as ibuprofen (Aleve,Motrin) while on blood thinning medication would not consider recently found pulmonary embolism to be a failure of Eliquis as patient could have already had pulmonary emboli when initially diagnosed with clot in the left leg. but to cover any possibility of failure of Eliquis, hospital medical doctor advise use of Xarelto (Rivaroxaban) instead just in case Xarelto (Rivaroxaban) 15 mg twice daily with food for 21 days followed by 20 mg once daily with food (1st dose of Xarelto started at 8PM on 06/29/19 when heparin drip stopped) Fluoxetine 20 mg every night for depression [facility] [address], [place] [address] Patient will need outpatient monitoring and subsequent repeat pulmonary lung imaging in regards to pleural effusions. A referral to outpatient pulmonary clinic follow up with [facility] clinic is recommended and patient and his family member is made aware Patient has been given disc of lung imaging to show to his outpatient doctors Scheduled followups 07/05/2019 2:50 PM Provider Frank Coles MD Department Family [facility] 07/12/2019 12:15 PM Provider David Ortiz MD Department Hematology/Oncology [facility] 07/30/2019 8:00 AM Provider Sonia Schwartz PA-C Department Neurology [facility] ) Acute Respiratory Failure with hypoxia -high oxygen requirement needs on admission based on oxygen saturations -respiratory assessments of oxygen for 4 liter/minute at rest and 6 liters/minute with ambulation for discharge Pleural Effusions -Small right and trace left pleural effusions on CTA scan -monitoring at this point; thoracentesis not indicated given anticoagulation, diuretics appears contraindicated given low normal blood pressures Muscular dystrophy -outpatient CT scan 06/13/19: Symmetric, confluent hypodensity in the anterior temporal lobe white matter and mild patchy hypodensity in the bilateral subcortical cerebral white matter. This appearance has been described in patients with type 1 myotonic dystrophy -outpatient 06/21/19 Brain MRI with results pending -outpatient neurology follow up depression and anxiety -on fluoxetine 10 mg daily at home -psychiatry consult following the patient and recommends providing 10 mg as a bedtime dose on 06/28/19, then increasing to 20 mg nightly Allergic rhinitis -Continue Josee prn Deep venous thrombosis prophylaxis, IV heparin to Xarelto Mother Greta [phone] Discharge Diagnosis Acute on chronic pulmonary embolism - cor pulmonale was initially suspected but has been rule out Anticoagulated by Anticoagulation therapy Chronic left lower extremity deep vein thrombosis Acute Respiratory Failure with hypoxia Pleural Effusions Muscular dystrophy depression Total Time Total Time Spent Total Time Spent (In Minutes): 40 minutes Total Time Includes: Examination of the Patient, Discharge Planning, Medication Reconciliation and Communication With Other Providers Discharge Plan Discharge Items Patient Disposition: Home - Self-Care Reason For Visit: LEG PAIN Discharge Diagnosis: Acute on chronic pulmonary embolism - cor pulmonale was initially suspected but has been rule out Anticoagulated by Anticoagulation therapy Chronic left lower extremity deep vein thrombosis Acute Respiratory Failure with hypoxia Pleural Effusions Muscular dystrophy depression Condition on Discharge: Good Activity: Per Instructions section Bathing: No limitations Exercise/Sports: Gradually increase as tolerated Driving/Machine Use: No limitations Weightbearing: Full weightbearing Non-emergency contact: Primary Care Provider, Specialist and Neurologist Call non-emergency contact if: you have any medication questions Follow-up/Referrals: Frank Coles MD [Primary Care Provider] - Diet: Regular Addtl Attending Provider Instructions: Patient is discharged with oxygen for 4 liter/minute at rest and 6 liters/minute with ambulation Patient may take acetaminophen 325 mg every 6 hours as needed for pain (or fever). Patient should avoid NSAID medications such as ibuprofen (Aleve,Motrin) while on blood thinning medication would not consider recently found pulmonary embolism to be a failure of Eliquis as patient could have already had pulmonary emboli when initially diagnosed with clot in the left leg. but to cover any possibility of failure of Eliquis, hospital medical doctor advise use of Xarelto (Rivaroxaban) instead just in case Xarelto (Rivaroxaban) 15 mg twice daily with food for 21 days followed by 20 mg once daily with food (1st dose of Xarelto started at 8PM on 06/29/19 when heparin drip stopped) Fluoxetine 20 mg every night for depression [place] [address] Patient will need outpatient monitoring and subsequent repeat pulmonary lung imaging in regards to pleural effusions. A referral to outpatient pulmonary clinic follow up with [facility] clinic is recommended and patient and his family member is made aware Patient has been given disc of lung imaging to show to his outpatient doctors Scheduled followups 07/05/2019 2:50 PM Provider Frank Coles MD Department Family Practice [facility] 07/12/2019 12:15 PM Provider David Ortiz MD Department Hematology/Oncology [facility] 07/30/2019 8:00 AM Provider Sonia Schwartz PA-C Department Neurology [facility] Pending Studies at Discharge: No Stand-Alone Forms: [facility], Smoking Cessation Medications and DC Order Prescriptions: New acetaminophen 325 mg tablet 325 mg PO Q6H PRN (Reason: fever or pain) 5 Days Qty: 20 RF: 0 fluoxetine 20 mg Capsule 20 mg PO HS 30 Days Qty: 30 RF: 0 Xarelto 15 mg (42)- 20 mg (9) tablets,dose pack 1 ea PO UD 30 Days Qty: 51 RF: 0 Continued ondansetron HCl 4 mg tablet 4 mg PO Q6H PRN (Reason: Nausea) RF: 0 fexofenadine [Josee Allergy] 180 mg Tablet 180 mg PO HS RF: 0 lorazepam 0.5 mg Tablet 0.5 mg PO BID PRN (Reason: Anxiety) RF: 0 Discontinued fluoxetine 10 mg capsule 10 mg PO QAM RF: 0 Eliquis 5 mg tablet 5 mg PO QAM RF: 0 Discharge Orders: Discharge Order (Routine); Ordered 06/29/19 Ordered By: Case Khanna Admission Data Admit Date/Time: 06/27/19 21:18 Attending Provider: Case Khanna Admit Provider: Chauncey Orr Primary Care Provider: Frank Coles Other Providers: Chauncey Orr ; Mari Long Jeffrey A. ; Teo Riggins
[2019-06-29] MEDS ORDERED: RIVAROXABAN 15 MG TAB PO SCH (20:00)
[2019-06-29] MEDS ORDERED: FLUOXETINE HCL 20 MG CAP PO SCH (21:00)
[2019-06-30] MEDS ORDERED: RIVAROXABAN 15 MG TAB PO SCH (09:00)
== END 2019-06-29 19:30 | disposition home or self-care (01) | DRG 175 ==
LOC: ED 19:06 → 2S 21:18